=== PATIENT | male | born 1940 | race Caucasian/White ===

== ENCOUNTER 2019-08-22 18:31 | Outpatient (CLI) | payer SELFPAY | END 2019-08-22 18:32 | disposition EMS.NT | LOC: EMS 18:31 | PROVIDERS: ATTEND Surgery | DX: R46.4 Slowness and poor responsiveness (principal); R73.09 Other abnormal glucose ==

== ENCOUNTER 2020-03-18 08:52 | Outpatient (CLI) | payer MEDICARE, OTHER | END 2020-03-18 08:53 | disposition EMS.NT | LOC: EMS 08:52 | PROVIDERS: ATTEND Surgery | DX: R47.81 Slurred speech (principal); R73.09 Other abnormal glucose ==

== ENCOUNTER 2020-03-20 11:04 | Outpatient (CLI) | payer MEDICARE, OTHER | END 2020-03-20 23:59 | disposition EMS.NT | LOC: EMS 11:04 | PROVIDERS: ATTEND Surgery | DX: R73.09 Other abnormal glucose (principal) | CPT/HCPCS: A0425; A0427 ==

== ENCOUNTER 2020-06-29 16:41 | Outpatient (CLI) | payer MEDICARE, OTHER ==
--- NOTE | 2020-06-30 14:42 | Ultrasound Report ---
PROCEDURE: Bladder INDICATIONS: OVERACTIVE BLADDER TECHNIQUE: Real-time scanning was performed of the bladder, with image documentation. COMPARISON: None. FINDINGS: Bladder: Pre-void bladder volume is 121 mL. Post-void residual is 6 mL. Pre-void images demonstrat e no intraluminal masses or stones. On pre-void images, bilateral ureteral jets are noted with color Doppler interrogation. Miscellaneous: The prostate is mildly enlarged, measuring 4.1 x 3.4 x 5.1 cm. No free pelvic fluid. IMPRESSION: 1. Minimal postvoid residual volume of 6 mL. Reviewed by: Ministerio Reyna MD on 06/30/2020 2:41 PM PDT Approved by: Ministerio Reyna MD on 06/30/2020 2:41 PM PDT Station ID: [id number]
== END 2020-06-29 16:42 | disposition home or self-care (01) ==
LOC: DI 16:41
PROVIDERS: ATTEND Internal Medicine
DX: R35.1 Nocturia (principal); N32.81 Overactive bladder
CPT/HCPCS: 76857

== ENCOUNTER 2020-07-20 13:19 | Outpatient (CLI) | payer MEDICARE, OTHER | END 2020-07-20 13:20 | disposition home or self-care (01) | LOC: DI 13:19 | PROVIDERS: ATTEND Internal Medicine | DX: I51.7 Cardiomegaly (principal); I49.3 Ventricular premature depolarization; I87.8 Other specified disorders of veins | CPT/HCPCS: 93306 ==

== ENCOUNTER 2020-09-30 11:21 | Outpatient (CLI) | payer MEDICARE, OTHER ==
--- NOTE | 2020-09-30 15:56 | XRAY Report ---
PROCEDURE: Lumbar Spine 2 View INDICATIONS: ACUTE LBP TECHNIQUE: 2 views of the lumbar spine were acquired. COMPARISON: None. FINDINGS: Bones: 5 [id number] vertebrae are present. There is mildly scoliotic bony alignment, a. No ve rtebral body compression fractures. No suspicious bony lesions. On the lateral view there appears t o be a well-developed S1-S2 disc. Soft tissues: Overlying bowel gas pattern is normal. No suspicious soft tissue calcifications. IMPRESSION: No trauma found, mild age-related degenerative disc disease is noted along the spine. Co mpression fracture seen. As noted the S1-S2 segmentation may include a well-developed disc, which cou ld be further assessed by targeted plain film imaging or CT scanning if clinically warranted. Segment ation anomalies can produce increased risk for developing acute low back pain. Reviewed by: Yuval Hardin MD on 09/30/2020 3:55 PM PST Approved by: Yuval Hardin MD on 09/30/2020 3:55 PM PST Station ID: [id number]
== END 2020-09-30 11:22 | disposition home or self-care (01) ==
LOC: DI 11:21
PROVIDERS: ATTEND Internal Medicine
DX: M51.37 Other intervertebral disc degeneration, lumbosacral region (principal)

== ENCOUNTER 2021-09-02 15:00 | Outpatient (CLI) | payer MEDICARE, OTHER | END 2021-09-02 15:01 | disposition critical access hospital (66) | LOC: EMS 15:00 | DX: R06.02 Shortness of breath (principal) | CPT/HCPCS: A0425; A0427 ==

== ENCOUNTER 2021-09-02 15:17 | Inpatient (IN) | payer MEDICARE, OTHER ==
[2021-09-02] MEDS ORDERED: FUROSEMIDE 40 MG/4 ML VIAL IVP STA (15:23)
[2021-09-02] MEDS ORDERED: NITROGLYCERIN 50 MG/250 ML 50 MG/250 ML BOTTLE IV STA (15:23)
--- NOTE | 2021-09-02 15:26 | ED Physician Documentation ---
PD HPI DYSPNEA - Stated complaint Stated Complaint: SOA - History obtained from History obtained from: Patient, EMS - History of Present Illness Timing - onset: Today Timing - onset during: Rest Timing - duration: Hours (2) Timing - details: Abrupt onset Pain level max: 0 Pain level now: 0 Improved by: O2, Other (CPAP) Worsened by: Laying flat Associated symptoms: Bilateral edema Similar symptoms before: Diagnosis (CHF) - Additional information Additional information: 80-year-old male with a history of congestive heart failure presents with increasing dyspnea today. Started on CPAP with EMS. No fevers. No chills. Has had his Covid vaccinations. Nothing makes it better or worse. He has chronic bilateral lower extremity edema. Last echocardiogram was 1 year ago with a EF of around 25%. Review of Systems Ten Systems: 10 systems reviewed and negative Constitutional: denies: Fever Nose: denies: Rhinorrhea / runny nose, Congestion Respiratory: denies: Cough, Wheezing GI: denies: Nausea, Vomiting, Diarrhea Skin: denies: Rash Musculoskeletal: denies: Neck pain, Back pain Neurologic: denies: Headache PD PAST MEDICAL HISTORY - Past Medical History Cardiovascular: Hypertension, High cholesterol, Coronary artery disease, Valve disorder Respiratory: None Neuro: Parkinson's Endocrine/Autoimmune: Type 2 diabetes GI: GERD : Incontinence HEENT: Chronic vision loss Psych: None Musculoskeletal: None Derm: None - Past Surgical History Past Surgical History: Yes Cardiovascular: Valve replacement, AICD HEENT: Cataracts - Present Medications Home Medications: Ambulatory Orders Medication Instructions Recorded Confirmed Aspirin [Aspirin EC] 81 mg PO DAILY 03/20/20 03/20/20 Carvedilol 3.125 mg PO BID 03/20/20 03/20/20 Doxazosin Mesylate 8 mg PO DAILY 03/20/20 03/20/20 Ibuprofen 400 mg PO DAILY 03/20/20 03/20/20 Insulin NPH Human [NovoLIN N] 50 - 80 unit SQ TIDWM 03/20/20 03/20/20 Omeprazole 20 mg PO DAILY 03/20/20 03/20/20 Oxybutynin [Ditropan] 5 mg PO BID 03/20/20 03/20/20 Spironolactone 25 mg PO DAILY 03/20/20 09/02/21 Apixaban [Eliquis] 5 mg PO BID 09/02/21 09/02/21 Carbidopa/Levodopa 25/100 [Sinemet 2 each PO TID 09/02/21 25 mg/100 mg] Losartan Potassium 12.5 mg PO DAILY 09/02/21 09/02/21 Metoprolol Succinate 100 mg PO BID 09/02/21 09/02/21 Rosuvastatin Calcium [Crestor] 5 mg PO DAILY 09/02/21 - Allergies Allergies/Adverse Reactions: Allergies Allergy/AdvReac Type Severity Reaction Status Date / Time atorvastatin [From Lipitor] Allergy Unknown Verified 09/02/21 15:29 - Social History Does the pt smoke?: No Smoking Status: Former smoker Does the pt drink ETOH?: Yes Does the pt have substance abuse?: No - Immunizations Immunizations are current?: No Immunizations: TDAP >10years/unknown - POLST Patient has POLST: No PD ED PE NORMAL - Vitals Vital signs reviewed: Yes - General General: Alert and oriented X 3, Other (mod resp distress, on CPAP) - HEENT HEENT: Moist mucous membranes - Neck Neck: Supple, no meningeal sign - Cardiac Cardiac: Other (irregular) - Respiratory Respiratory: Other (crackles B) - Abdomen Abdomen: Soft, Non tender, Non distended - Derm Derm: Warm and dry - Extremities Extremities: Other (2+ BLE pitting edema) - Neuro Neuro: Alert and oriented X 3 Results - Vitals Vitals: Vital Signs - 24 hr 09/02/21 09/02/21 09/02/21 15:24 15:27 15:30 Temperature 36.6 C Heart Rate 125 H 110 H 113 H Respiratory 31 H 24 Rate Blood Pressure 146/90 H 146/90 H O2 Saturation 100 96 09/02/21 09/02/21 09/02/21 15:59 16:29 16:30 Temperature 37.5 C Heart Rate 126 H 120 H Respiratory 29 H 28 H Rate Blood Pressure 139/105 H 146/95 H 146/95 H O2 Saturation 100 100 09/02/21 09/02/21 09/02/21 17:11 17:17 17:30 Temperature Heart Rate 118 H 108 H 110 H Respiratory 30 H 29 H Rate Blood Pressure 132/86 H 132/88 H O2 Saturation 100 100 Oxygen O2 Source Room air - EKG (time done) 1531 Rate: Rate (enter#) (120) Rhythm: Atrial fibrillation (w/ RVR) [place]: Normal Intervals: Wide QRS Ischemia: ST elevation c/w repol - Labs Labs: Laboratory Tests 09/02/21 09/02/21 09/02/21 15:21 15:21 15:21 WBC 7.4 RBC 4.52 L Hgb 13.2 L Hct 42.1 MCV 93.1 MCH 29.2 MCHC 31.4 L RDW 12.7 Plt Count 189 MPV 11.9 H Neut # (Auto) 5.8 Lymph # (Auto) 0.8 L [place] # (Auto) 0.7 Eos # (Auto) 0.0 Baso # (Auto) 0.0 Absolute Nucleated RBC 0.00 Nucleated RBC % 0.0 Sodium 130 L Potassium 6.3 H* Chloride 97 L Carbon Dioxide 23 Anion Gap 10.0 BUN 33 H Creatinine 1.4 H Estimated GFR (MDRD) 49 L Glucose 380 H Calcium 8.4 L Total Bilirubin 0.5 AST 23 ALT 14 Alkaline Phosphatase 93 Troponin I High Sens B-Natriuretic Peptide 932 H Total Protein 6.5 L Albumin 2.9 L Globulin 3.6 Albumin/Globulin Ratio 0.8 L Lipase 21 L Nasal Adenovirus (PCR) Nasal B. parapertussis DNA (PCR) Nasal Coronavir 229E PCR Nasal Coronavir HKU1 PCR Nasal Coronavir NL63 PCR Nasal Coronavir OC43 PCR Nasal Enterovir/Rhinovir PCR Nasal Influenza B PCR Nasal Influenza A PCR Nasal Parainfluen 1 PCR Nasal Parainfluen 2 PCR Nasal Parainfluen 3 PCR Nasal Parainfluen 4 PCR Nasal RSV (PCR) Nasal B.pertussis DNA PCR Nasal C.pneumoniae (PCR) [place] Human Metapneumo PCR Nasal M.pneumoniae (PCR) Nasal SARS-CoV-2 (PCR) 09/02/21 09/02/21 15:21 15:23 WBC RBC Hgb Hct MCV MCH MCHC RDW Plt Count MPV Neut # (Auto) Lymph # (Auto) [place] # (Auto) Eos # (Auto) Baso # (Auto) Absolute Nucleated RBC Nucleated RBC % Sodium Potassium Chloride Carbon Dioxide Anion Gap BUN Creatinine Estimated GFR (MDRD) Glucose Calcium Total Bilirubin AST ALT Alkaline Phosphatase Troponin I High Sens 42.3 H* B-Natriuretic Peptide Total Protein Albumin Globulin Albumin/Globulin Ratio Lipase Nasal Adenovirus (PCR) NOT DETECTED Nasal B. parapertussis DNA (PCR) NOT DETECTED Nasal Coronavir 229E PCR NOT DETECTED Nasal Coronavir HKU1 PCR NOT DETECTED Nasal Coronavir NL63 PCR NOT DETECTED Nasal Coronavir OC43 PCR NOT DETECTED Nasal Enterovir/Rhinovir PCR NOT DETECTED Nasal Influenza B PCR NOT DETECTED Nasal Influenza A PCR NOT DETECTED Nasal Parainfluen 1 PCR NOT DETECTED Nasal Parainfluen 2 PCR NOT DETECTED Nasal Parainfluen 3 PCR NOT DETECTED Nasal Parainfluen 4 PCR NOT DETECTED Nasal RSV (PCR) DETECTED A Nasal B.pertussis DNA PCR NOT DETECTED Nasal C.pneumoniae (PCR) NOT DETECTED [place] Human Metapneumo PCR NOT DETECTED Nasal M.pneumoniae (PCR) NOT DETECTED Nasal SARS-CoV-2 (PCR) NOT DETECTED - Rads (name of study) cxr Radiology: Final report received, EMP read contemporaneously, See rad report (Increased vascularity with cardiomegaly most suggestive of edema. ) PD MEDICAL DECISION MAKING - ED course Complexity details: reviewed results, re-evaluated patient, considered differential, d/w patient, d/w family, d/w career consultant ED course: 80-year-old male with pulmonary edema. Likely secondary to CHF. He was maintained on BiPAP in the emergency department. Started on nitroglycerin drip and started on a diltiazem drip for the A. fib with RVR. Breathing did improve, but is still requiring BiPAP. He was not able to be weaned in the emergency department. He was also given Lasix and a Rizo catheter inserted. The patient will be admitted to the hospitalist for further care. Discussed the case with Dr. Corey, hospitalist who accepts This document was made in part using voice recognition software. While efforts are made to proofread this document, sound alike and grammatical errors may occur. Discussed the case with the patient's [id number]. She states that he is DNR/DNI - Critical Care Time(min): 40 Time Includes: Direct patient care, Review records, Reassess patient, Document care, Coordinate care, Medical consult, Family consult for tx dec, See progress note Data interpretation: See progress note Departure - Departure Disposition: 66 [facility] DC/Xfer Clinical Impression: Hyperkalemia, Atrial fibrillation with rapid ventricular response, Hyperglycemia due to diabetes mellitus Pulmonary edema Qualifiers: Chronicity: acute Qualified Code(s): J81.0 - Acute pulmonary edema CHF exacerbation Qualifiers: Heart failure type: unspecified Qualified Code(s): I50.9 - Heart failure, unspecified Condition: Stable Discharge Date/Time: 09/02/21 18:28
[2021-09-02 15:34] LABS: BASOPHILS % (AUTO) 0.5 %; EOSINOPHILS % (AUTO) 0.3 %; HCT - HEMATOCRIT 42.1 % (42.0-52.0); HGB - HEMOGLOBIN 13.2 g/dL (14.0-18.0); LYMPHOCYTES # (AUTO) 0.8 10^3/uL (1.5-3.5); LYMPHOCYTES % (AUTO) 10.6 %; MEAN CORPUSCULAR HEMOGLOBIN 29.2 pg (27.0-31.0); MEAN CORPUSCULAR HGB CONC 31.4 g/dL (32.0-36.0); MEAN CORPUSCULAR VOLUME 93.1 fL (80.0-94.0); MEAN PLATELET VOLUME 11.9 fL (7.4-11.4); MONOCYTES # (AUTO) 0.7 10^3/uL (0.0-1.0); MONOCYTES % (AUTO) 8.8 %; NEUTROPHILS # (AUTO) 5.8 10^3/uL (1.5-6.6); NEUTROPHILS % (AUTO) 79.3 %; PLT - PLATELET COUNT 189 10^3/uL (130-450); RED BLOOD COUNT 4.52 10^6/uL (4.70-6.10); RED CELL DISTRIBUTION WIDTH 12.7 % (12.0-15.0); WHITE BLOOD COUNT 7.4 x10^3/uL (4.8-10.8)
[2021-09-02 15:57] LABS: ALBUMIN 2.9 g/dL (3.2-5.5); ALBUMIN/GLOBULIN RATIO 0.8 (1.0-2.2); BILIRUBIN,TOTAL 0.5 mg/dL (0.2-1.0); CALCIUM 8.4 mg/dL (8.5-10.3); CREATININE 1.4 mg/dL (0.6-1.2); TOTAL PROTEIN 6.5 g/dL (6.7-8.2)
[2021-09-02 15:58] LABS: POTASSIUM 6.3 mmol/L (3.5-5.0)
--- NOTE | 2021-09-02 16:09 | XRAY Report ---
PROCEDURE: Chest 1 View X-Ray INDICATIONS: dyspnea, CHF TECHNIQUE: One view of the chest was acquired. COMPARISON: None FINDINGS: Surgical changes and devices: Pacemaker and sternal wires are present. Lungs and pleura: No consolidations. Increased pulmonary vascularity is present. Mediastinum: Mediastinal contours appear normal. Heart size is. Bones and chest wall: No suspicious bony lesions. Overlying soft tissues appear unremarkable. IMPRESSION: Increased vascularity with cardiomegaly most suggestive of edema. Reviewed by: Vero Gonzalez MD on 09/02/2021 4:08 PM PST Approved by: Vero Gonzalez MD on 09/02/2021 4:08 PM PST Station ID: [id number]
[2021-09-02] MEDS ORDERED: INSULIN REGULAR HUMAN 100 UNIT/1 ML 10 ML MDV IVP STA (16:44)
[2021-09-02 16:57] LABS: B. PARAPERTUSSIS- RESP PCR PAN NOT DETECTED; B. PERTUSSIS- RESP PCR PANEL NOT DETECTED; C. PNEUMONIAE- RESP PCR PANEL NOT DETECTED; CORONAVIRUS 229E-RESP PCR NOT DETECTED; CORONAVIRUS HKU1-RESP PCR NOT DETECTED; CORONAVIRUS NL63-RESP PCR NOT DETECTED; CORONAVIRUS OC43-RESP PCR NOT DETECTED; HUMAN METAPNEUMOVIRUS NOT DETECTED; INFLUENZA A- RESP PCR PANEL NOT DETECTED; INFLUENZA B - RESP PCR PANEL NOT DETECTED; M. PNEUMONIAE- RESP PCR PANEL NOT DETECTED; PARAINFLUENZA VIRUS 1 NOT DETECTED; PARAINFLUENZA VIRUS 2 NOT DETECTED; PARAINFLUENZA VIRUS 3 NOT DETECTED; PARAINFLUENZA VIRUS 4 NOT DETECTED; RHINOVIRUS/ENTEROVIRUS NOT DETECTED; RSV- RESP PCR PANEL DETECTED; SARS-CoV-2 -RESP PCR PANEL NOT DETECTED
[2021-09-02] MEDS: diltiaZEM INJ 125 MG in DEXTROSE 5% 100 ML IVP ONE ×2 (17:27→18:54)
[2021-09-02] MEDS ORDERED: ONDANSETRON 4 MG/2 ML VIAL IVP PRN (17:38)
[2021-09-02] MEDS ORDERED: ACETAMINOPHEN 325 MG TABLET PO PRN ×2 (17:38→19:38)
--- NOTE | 2021-09-02 17:54 | HISTORY & PHYSICAL EXAMINATION ---
Chief Complaint - Chief Complaint Chief Complaint: dyspnea History of Present Illness - Admitted From Admitted From:: [facility] ED - History Obtained From Records Reviewed: yes History obtained from: patient's daughter in law Exam Limitations: dyspnea, exhausted - History of Present Illness HPI Comment/Other: Patient is an 80-year-old male with medical history significant for coronary artery disease status post CABG, A. fib on Eliquis, CHF, hypertension, hyperlipidemia, lymphedema, diabetes on insulin, BPH and Parkinson's who was brought to the ED via EMS with dyspnea. It is reported that the patient has been fighting a cold since 08/31/2021. He slept most of the day yesterday. Today he woke up significantly dyspneic and had a rattling sound in his chest. His dyspnea was severe such that he declined food. His family became concerned and called EMS. Upon arrival EMS immediately placed him on a CPAP machine. Work-up in the emergency room included BNP which was 930, troponin 42. Patient was also noted to have a potassium level of 6.3. He also tested positive for RSV. Finally he was in atrial fibrillation with rapid ventricular rhythm. Heart rate was in the 120s. Patient was placed on the BiPAP in the ED, given Lasix, insulin, dextrose 50 and also placed on a diltiazem drip. He was presented for admission for further treatment. At bedside patient is significantly dyspneic with crackles on auscultation and very exhausted. He was unable to provide history. This history above was o btained from his [id number]. History - Past Medical History Cardiovascular: reports: Congestive heart failure, Hypertension, High cholesterol, Coronary artery disease, Valve disorder, Other (Chronic Lymphedema) Respiratory: reports: None Neuro: reports: Parkinson's Endocrine/Autoimmune: reports: Type 2 diabetes GI: reports: GERD : reports: Incontinence HEENT: reports: Chronic vision loss Psych: reports: None Musculoskeletal: reports: None Derm: reports: None MRSA Hx?: No - Past Surgical History Cardiovascular: reports: CABG, Valve replacement, AICD HEENT: reports: Cataracts - Family & Social History Family History Comment/Other: Family member denied any history of any significant medical problems Social History Notes: He does not use tobacco products, alcohol or recreational substances. He lives at home with his son and his son's family. He has a nursing assistant who comes 3 days a week to help with showers. He gets around using a walker. He is able to feed himself. - POLST Patient has POLST: No POLST Status: DNR Meds/Allgy - Home Medications Home Medications: Ambulatory Orders Medication Instructions Recorded Confirmed Aspirin [Aspirin EC] 81 mg PO DAILY 03/20/20 03/20/20 Carvedilol 3.125 mg PO BID 03/20/20 03/20/20 Doxazosin Mesylate 8 mg PO DAILY 03/20/20 03/20/20 Ibuprofen 400 mg PO DAILY 03/20/20 03/20/20 Insulin NPH Human [NovoLIN N] 50 - 80 unit SQ TIDWM 03/20/20 03/20/20 Omeprazole 20 mg PO DAILY 03/20/20 03/20/20 Oxybutynin [Ditropan] 5 mg PO BID 03/20/20 03/20/20 Spironolactone 25 mg PO DAILY 03/20/20 09/02/21 Apixaban [Eliquis] 5 mg PO BID 09/02/21 09/02/21 Carbidopa/Levodopa 25/100 [Sinemet 2 each PO TID 09/02/21 25 mg/100 mg] Losartan Potassium 12.5 mg PO DAILY 09/02/21 09/02/21 Metoprolol Succinate 100 mg PO BID 09/02/21 09/02/21 Rosuvastatin Calcium [Crestor] 5 mg PO DAILY 09/02/21 - Allergies Allergies/Adverse Reactions: Allergies Allergy/AdvReac Type Severity Reaction Status Date / Time atorvastatin [From Lipitor] Allergy Unknown Verified 09/02/21 15:29 Review of Systems - Constitutional Constitutional: reports: Fatigue. denies: Fever, Chills - Eyes Eyes: reports: Blurred vision (2/2 cataract) - Cardiovascular Cariovascular: reports: Irregular heart rate, Edema, Exertional dyspnea, Decr. exercise tolerance. denies: Palpitations, Chest pain, Lightheadedness - Respiratory Respiratory: reports: Cough, Sputum production, Wheezing, SOB at rest, SOB with exertion - Genitourinary Genitourinary: denies: Dysuria, Frequency, Urgency, Hematuria - Musculoskeletal Musculoskeletal: denies: Muscle pain, Back pain, Muscle aches - Integumentary Integumentary: reports: Other (redness in lower extremities. Wounds noted on bilateral lower extremities) - Neurological Neurological: reports: General weakness - Psychiatric Psychiatric: denies: Depression, Anxiety - Endocrine Endocrine: denies: Polyuria, Polydypsia - Hematologic/Lymphatic Hematologic/Lymphatic: denies: Anemia, Bruising, Petechiae Prior Level of Functionality: He lives at home with his son and his son's family. He has a nurse aide who comes 3 days a week to help with showers. He gets around using a walker. He is able to feed himself. Exam - Vital Signs Vital Signs: Vital Signs x48h Temp Pulse Resp BP Pulse Ox 09/02/21 17:30 110 H 29 H 132/88 H 100 09/02/21 17:17 108 H 09/02/21 17:11 118 H 30 H 132/86 H 100 09/02/21 16:30 146/95 H 09/02/21 16:29 37.5 C 120 H 28 H 146/95 H 100 09/02/21 15:59 126 H 29 H 139/105 H 100 09/02/21 15:30 113 H 24 146/90 H 96 09/02/21 15:27 110 H 09/02/21 15:24 36.6 C 125 H 31 H 146/90 H 100 - Physical Exam General Appearance: positive: Moderate distress (respiratory distress) Eyes Bilateral: positive: PERRL, EOMI ENT: positive: No signs of dehydration Neck: positive: No JVD, Trachea midline Respiratory: positive: Chest non-tender, Rales, Rhonchi, Other (Increased work of breathing) Cardiovascular: positive: Irregularly irregular, Tachycardia Abdomen: positive: Non-tender, No organomegaly, Nml bowel sounds, No distention. negative: Guarding, Rebound Back: positive: Nml inspection Skin: positive: Other (Redness and wounds on lower extremities bilaterally) Neurologic/Psychiatric: positive: Other (oriented to person) Conclusion/Plan - Problem List (1) Atrial fibrillation with rapid ventricular response Conclusion/Plan: On diltiazem drip. Will titrate to effect. We will continue Eliquis 5 mg p.o. twice daily. (2) CHF exacerbation Conclusion/Plan: Patient placed on BiPAP machine. Patient given Lasix 40 mg IV x1 in the ED. Will administer another dose of Lasix 40 mg IV x1 tonight. We will continue with Lasix 40 mg IV twice daily starting tomorrow morning. Patient is currently on a nitroglycerin drip. We will continue. Continue metoprolol succinate 100 mg twice daily. Hold patient's spironolactone. We will hold patient's losartan. We will obtain a 2D echocardiogram when available. Troponin was 42. Will trend x2 more. It is reported that patient EF on last echocardiogram was 20 to 30%. Patient has an AICD device. Qualifiers: Heart failure type: unspecified Qualified Code(s): I50.9 - Heart failure, unspecified (3) Hyperkalemia Conclusion/Plan: Initial potassium level was 6.3. Patient was given a dose of dextrose 50 and 6 units of regular insulin IV. Will recheck potassium level. Continue Lasix 40 mg IV twice daily. Hold spironolactone and losartan. (4) CAD (coronary artery disease) Conclusion/Plan: Status post CABG in the past. Patient's ejection fraction is 20 to 30% per his last echocardiogram. Patient has an AICD device in place. Patient currently does not have chest pain. Initial troponin was 42. Patient is on a nitroglycerin drip for flash pulmonary edema. Metoprolol succinate 100 mg p.o. twice daily. Eliquis 5 mg p.o. twice daily. We will hold patient's losartan and spironolactone. Patient takes rosuvastatin 5 mg p.o. daily. (5) Diabetes mellitus Conclusion/Plan: Blood glucose level was 380. We will check patient's hemoglobin A1c. Lantus 20 units subcu twice daily ordered High dose sliding scale insulin ordered. Accu Checks before every meal and at bedtime. Carb controlled diet ordered. (6) Parkinson disease Conclusion/Plan: On carbidopa/levodopa (7) BPH (benign prostatic hyperplasia) Conclusion/Plan: On doxazosin 8 mg p.o. daily. (8) URI (upper respiratory infection) Conclusion/Plan: 2/2 RSV Supportive therapy (9) JOLLY (acute kidney injury) Conclusion/Plan: Creatinine was 1.4 with eGFR of 49 Will monitor. - Lab Results Fish Bones: 09/03/21 04:32 09/03/21 04:32 Core Measures - Anticipated LOS I expect patient to be DC'd or transferred within 96 hours.: Yes - DVT/VTE - Prophylaxis VTE/DVT Device ordered at admit?: Yes VTE/DVT Prophylaxis med ordered at admit?: Yes
[2021-09-02] MEDS ORDERED: NITROGLYCERIN 50 MG/250 ML 50 MG/250 ML BOTTLE IV SCH ×2 (19:00→20:12)
[2021-09-02] MEDS ORDERED: FUROSEMIDE 40 MG/4 ML VIAL IVP ONE (19:00)
[2021-09-02] MEDS: diltiaZEM INJ 125 MG in DEXTROSE 5% 100 ML IV SCH (19:07)
[2021-09-02 20:00] LABS: CALCIUM 8.9 mg/dL (8.5-10.3); CREATININE 1.5 mg/dL (0.6-1.2); POTASSIUM 5.8 mmol/L (3.5-5.0)
--- NOTE | 2021-09-02 20:31 | ADVANCE CARE PLANNING NOTE ---
Advance Care Planning - Planning Encounter Date: 09/02/21 Time: 20:00 Purpose: To clarify the CODE STATUS wishes because the son Glenn Conde requested DNR status after speaking with the admitting Hospitalist, Dr Corey. However, the patient has a defibrillator which is working, not turned off, and would continue to give the patient resuscitation by defibrillation methods. Parties in Attendance: This Hospitalist spoke to the son, Glenn Almanza Jr. (the patient's DPOA) by phone, outside of the patient's room. Decisional Capacity of the Patient: The patient is currently in extremist, in the ICU and he is too dyspneic to speak or make any medical decisions. The entire history had been obtained by Dr. Corey from the [id number], not from the patient. - Encounter Subjective/Patient's Story: The son, Glenn Almanza Jr. described that the patient required CABG in 2012. He had a pacemaker placed then. The Hose Tester informed the patient and the family that the pacemaker would need to be upgraded to a defibrillator in the upcoming future. The patient did have an upgrade to a defibrillator in 2013 and then needed something else done in 2019 (possibly a battery change). The son was in possession of the patient's defibrillator card from the patient's wallet and was able to read that the patiemt has a [place] pacemaker, [id number] and it has an RV lead, an LV lead and LA lead. His Hose Tester in [place] gets information from downloaded remote monitoring, with wifi equipment which the patient has at his bedside at home. The son is not sure if the remote monitoring information goes to the original Hose Tester who placed the device, who is in [facility], or whether the [place] Hose Tester gets all of the remote monitoring information. The patient has never had "optimization" done with an Echo and changing settings of his biventricular leads, that he knows of, and the patient has never had a shock administered by this defibrillator. Objective/Medical Story: Patient is admitted with flash pulmonary edema. He is in the ICU, on supplemental O2, receiving IV Lasix twice daily, is on an IV nitroglycerin drip for afterload and preload reduction. The admitting Hospitalist had spoken to the son earlier toda and reported that a DNR status has been ordered. I called the son, Glenn AlmanzaJr. and receive the above information about the [place] device, (which is a top of the line, Bi-Ventricular pacer/defibrillator). I explained that a DNR status means that there would be no defibrillation delivered, but that the patient currently has a working defibrillator which would give him shocks, which is rescusitation. The son reported that the father has said the following: "I want the defibrillator to work like it's supposed to and let me live, however if it is not successful, then let nature take its course". The son stated to me and to the admitting doctor, that he would not want the patient's ribs cracked in performance of CPR. I stated that if we let the defibrillator keep shocking the patient, in a CODE BLUE situation, the patient could theoretically keep getting (uncomfortable) shocks recurrently, and that is also painful and is not a true DNR status. Goals of Care: The son wants to respect the patient's wishes in terms of letting the defibrillator give shocks if they are indicated but he does not want the patient's ribs cracked in performance of CPR. He wants to respect the patient's wishes in terms of letting the defibrillator do its job however "if it is not successful, to stop and let nature take its course". He will speak to his 2 brothers and explain all these details before making any further decision. Glenn Jr Cami wishes to still keep the DNR status in place. Plan: The son will call back the Hospitalist team with a decision about CODE BLUE status for his father. Code Status: Do Not Attempt Resuscitation Time spent on advance care plannin min
[2021-09-02] MEDS: APIXABAN 5 MG TABLET PO SCH (20:52)
[2021-09-02] MEDS: INSULIN GLARGINE 300 UNIT/3 ML PEN SUBQ SCH (20:53)
[2021-09-02] MEDS: METOPROLOL SUCCINATE 50 MG TABLET PO SCH (20:53)
[2021-09-02] MEDS: INSULIN ASPART 300 UNIT/3 ML PEN SUBQ SCH (20:54)
[2021-09-03] MEDS: SODIUM CHLORIDE FLUSH 0.9% 10 ML SYRINGE IVP SCH ×4 (01:17→20:02)
[2021-09-03 05:02] LABS: BASOPHILS % (AUTO) 0.3 %; EOSINOPHILS # (AUTO) 0.1 10^3/uL (0.0-0.7); EOSINOPHILS % (AUTO) 1.5 %; HCT - HEMATOCRIT 43.9 % (42.0-52.0); HGB - HEMOGLOBIN 13.5 g/dL (14.0-18.0); LYMPHOCYTES # (AUTO) 1.3 10^3/uL (1.5-3.5); LYMPHOCYTES % (AUTO) 19.7 %; MEAN CORPUSCULAR HEMOGLOBIN 29.1 pg (27.0-31.0); MEAN CORPUSCULAR HGB CONC 30.8 g/dL (32.0-36.0); MEAN CORPUSCULAR VOLUME 94.6 fL (80.0-94.0); MEAN PLATELET VOLUME 11.7 fL (7.4-11.4); MONOCYTES # (AUTO) 0.8 10^3/uL (0.0-1.0); MONOCYTES % (AUTO) 11.5 %; NEUTROPHILS # (AUTO) 4.5 10^3/uL (1.5-6.6); NEUTROPHILS % (AUTO) 66.6 %; PLT - PLATELET COUNT 157 10^3/uL (130-450); RED BLOOD COUNT 4.64 10^6/uL (4.70-6.10); RED CELL DISTRIBUTION WIDTH 12.7 % (12.0-15.0); WHITE BLOOD COUNT 6.8 x10^3/uL (4.8-10.8)
[2021-09-03 05:12] LABS: CREATININE 1.6 mg/dL (0.6-1.2)
[2021-09-03 05:19] LABS: CALCIUM 8.6 mg/dL (8.5-10.3); POTASSIUM 5.1 mmol/L (3.5-5.0)
[2021-09-03 05:37] LABS: MAGNESIUM 2.1 mg/dL (1.7-2.8); PHOSPHORUS 3.8 mg/dL (2.5-4.6)
[2021-09-03] MEDS: PANTOPRAZOLE 40 MG VIAL IVP SCH (06:04)
[2021-09-03] MEDS: SODIUM CHLORIDE FLUSH 0.9% 10 ML SYRINGE IVP PRN ×2 (06:04→06:05)
[2021-09-03] MEDS: FUROSEMIDE 40 MG/4 ML VIAL IVP SCH ×2 (06:04→14:00)
[2021-09-03] MEDS: METOPROLOL SUCCINATE 50 MG TABLET PO SCH ×2 (08:00→20:01)
[2021-09-03] MEDS: INSULIN ASPART 300 UNIT/3 ML PEN SUBQ SCH ×4 (08:30→20:06)
[2021-09-03] MEDS: APIXABAN 5 MG TABLET PO SCH ×2 (08:30→19:59)
[2021-09-03] MEDS: SPIRONOLACTONE 25 MG TABLET PO SCH (08:30)
[2021-09-03] MEDS: INSULIN GLARGINE 300 UNIT/3 ML PEN SUBQ SCH ×2 (08:30→20:06)
[2021-09-03] MEDS: ASPIRIN EC 81 MG TABLET PO SCH (08:30)
--- NOTE | 2021-09-03 08:31 | PROVIDER PROGRESS NOTE ---
Assessment/Plan - Problem List (1) Atrial fibrillation with rapid ventricular response Assessment/Plan: Heart rate currently less than 100. Will wean patient off diltiazem drip. 100 mg p.o. twice daily On Eliquis 5 mg p.o. twice daily. (2) CHF exacerbation Qualifiers: Heart failure type: unspecified Qualified Code(s): I50.9 - Heart failure, unspecified Assessment/Plan: Improved. Patient is currently off BiPAP machine. He is on 2 L of oxygen via nasal cannula with oxygen saturation at 99%. On Lasix 40 mg IV twice daily. Nitroglycerin drip discontinued. Metoprolol succinate 100 mg p.o. twice daily. Spironolactone 25mg p.o. daily. Will obtain a 2D echocardiogram when available. Troponin trend was 42, then 64.8, then 46.1. Initial BNP was 932. Repeat BNP was 749. (3) Hyperkalemia Assessment/Plan: Improved. Potassium currently at 5.2. We'll continue to monitor. Patient is on Lasix and insulin. (4) CAD (coronary artery disease) Assessment/Plan: Status post CABG in the past. Patient's ejection fraction is 20 to 30% per his last echocardiogram. Patient has an AICD device in place. Patient currently does not have chest pain. Initial troponin was 42. Repeat troponin was 64 and then 46.1 Patient is on a nitroglycerin drip for flash pulmonary edema. Metoprolol succinate 100 mg p.o. twice daily. Eliquis 5 mg p.o. twice daily. We will hold patient's losartan and spironolactone. Patient takes rosuvastatin 5 mg p.o. daily. (5) Diabetes mellitus Assessment/Plan: Very poorly controlled. Hemoglobin A1c was 11.5. Lantus 20 units subcu twice daily ordered High dose sliding scale insulin ordered. Accu Checks before every meal and at bedtime. Carb controlled diet ordered. (6) Parkinson disease Assessment/Plan: On carbidopa/levodopa (7) BPH (benign prostatic hyperplasia) Assessment/Plan: On doxazosin 8 mg p.o. daily. (8) URI (upper respiratory infection) Assessment/Plan: 2/2 RSV Supportive therapy (9) JOLLY (acute kidney injury) Assessment/Plan: Creatinine was 1.6 with eGFR of 42 Will monitor. - Current Meds Current Meds: Current Medications Generic Name Dose Route Start Last Admin Trade Name Freq PRN Reason Stop Dose Admin Apixaban 5 mg 09/02/21 21:00 09/02/21 20:52 Apixaban 5 Mg Tablet PO 5 mg BID BAYRON Administration Furosemide 40 mg 09/03/21 06:00 09/03/21 06:04 Furosemide 40 Mg/4 Ml Vial IVP 40 mg BIDDIURETIC BAYRON Administration Diltiazem HCl 125 mg/ Dextrose 125 mls @ 5 mls/hr 09/02/21 19:00 09/03/21 06:00 IV 5 mg/hr .Q25H BAYRON 5 mls/hr Titration Protocol 5 MG/HR Insulin Aspart 3 - 11 unit 09/02/21 21:00 09/02/21 20:54 Insulin Aspart 300 Unit/3 Ml Pen SUBQ 9 unit 0800,1200,1700,2100 BAYRON Administration Protocol Insulin Glargine 20 unit 09/02/21 21:00 09/02/21 20:53 Insulin Glargine 300 Unit/3 Ml Pen SUBQ 20 unit BID BAYRON Administration Metoprolol Succinate 100 mg 09/02/21 21:00 09/03/21 08:00 Metoprolol Succinate 50 Mg Tablet PO 100 mg BID BAYRON Administration Pantoprazole Sodium 40 mg 09/03/21 07:00 09/03/21 06:04 Pantoprazole 40 Mg Vial IVP 40 mg QDAC BAYRON Administration Sodium Chloride 10 ml 09/03/21 01:00 09/03/21 01:17 Sodium Chloride Flush 0.9% 10 Ml Syringe IVP Not Given 0100,0900,1700 BAYRON Sodium Chloride 10 ml 09/02/21 17:38 09/03/21 06:05 Sodium Chloride Flush 0.9% 10 Ml Syringe IVP 10 ml PRN PRN Administration NEEDED PER PROVIDER ORDERS - Lab Result Fish Bone Diagrams: 09/03/21 04:32 09/03/21 04:32 - Additional Planning My Orders: My Active Orders 09/02/21 17:38 Activity Orders [RC] Q2HR Daily Weight [RC] 0600 IO [RC] Q1HR Initiate Bowel Care Protocol [RC] QSHIFT Initiate Flu Vaccine Screening [RC] ONCE Initiate ICU Electrolyte Prot. [RC] .protocol Initiate Line Care Protocol [RC] .protocol Initiate Personal Care Protoco [RC] .protocol Initiate Pneumonia Vaccine Scr [RC] ONCE Ondansetron Inj [Zofran Inj] 4 mg IVP Q6HR PRN Sodium Chloride Flush 0.9% [Normal Saline Flush 0.9%] 10 ml IVP PRN PRN Code Status [OTHERS] Routine Condition of Patient [OTHERS] Routine DVT Prophylaxis [OTHERS] Routine 09/02/21 17:41 Oxygen Therapy [RC] .PRN 09/02/21 18:13 Blood Glucose Checks - Eating [RC] 0800,1200,1700,2100 Initiate Hypoglycemia Protocol [RC] .protocol 09/02/21 19:00 Dextrose 5% [D5w] 100 ml diltiaZEM INJ [Cardizem Inj] 125 mg IV 5 mg/hr 09/02/21 21:00 Apixaban [Eliquis] 5 mg PO BID Insulin Aspart [NovoLOG] 3 - 11 unit SUBQ 0800,1200,1700,2100 Insulin Glargine [Lantus Solostar] 20 unit SUBQ BID Metoprolol Succinate [Toprol Xl] 100 mg PO BID 09/03/21 01:00 Sodium Chloride Flush 0.9% [Normal Saline Flush 0.9%] 10 ml IVP 0100,0900,1700 09/03/21 04:32 HEMOGLOBIN A1c% [CHEM] DAILYLAB 09/03/21 06:00 FUROSEMIDE INJ 40mg VIAL [LASIX INJ 40 mg VIAL] 40 mg IVP BIDDIURETIC 09/03/21 07:00 Pantoprazole [Protonix] 40 mg IVP QDAC 09/04/21 05:00 BMP - BASIC METABOLIC PANEL [CHEM] DAILYLAB CBC - COMP BLD CT W/AUTO DIFF [HEME] DAILYLAB 09/05/21 05:00 BMP - BASIC METABOLIC PANEL [CHEM] DAILYLAB CBC - COMP BLD CT W/AUTO DIFF [HEME] DAILYLAB 09/06/21 05:00 BMP - BASIC METABOLIC PANEL [CHEM] DAILYLAB CBC - COMP BLD CT W/AUTO DIFF [HEME] DAILYLAB 09/07/21 05:00 BMP - BASIC METABOLIC PANEL [CHEM] DAILYLAB CBC - COMP BLD CT W/AUTO DIFF [HEME] DAILYLAB 09/08/21 05:00 BMP - BASIC METABOLIC PANEL [CHEM] DAILYLAB CBC - COMP BLD CT W/AUTO DIFF [HEME] DAILYLAB 09/09/21 05:00 BMP - BASIC METABOLIC PANEL [CHEM] DAILYLAB CBC - COMP BLD CT W/AUTO DIFF [HEME] DAILYLAB Subjective - Subjective Patient Reports: Other (Patient was very awake alert and oriented x4 today. Breathing with no difficulty. He was on 2 L of oxygen via nasal cannula with oxygen saturation in the high 90s. Denied chest pain.) Objective Vital Signs: Vital Signs - 24 hr 09/02/21 09/02/21 09/02/21 15:24 15:27 15:30 Temperature 36.6 C Heart Rate 125 H 110 H 113 H Heart Rate [ Monitoring electrodes] Respiratory 31 H 24 Rate Blood Pressure 146/90 H 146/90 H Blood Pressure [Right Brachial artery] O2 Saturation 100 96 09/02/21 09/02/21 09/02/21 15:59 16:29 16:30 Temperature 37.5 C Heart Rate 126 H 120 H Heart Rate [ Monitoring electrodes] Respiratory 29 H 28 H Rate Blood Pressure 139/105 H 146/95 H 146/95 H Blood Pressure [Right Brachial artery] O2 Saturation 100 100 09/02/21 09/02/21 09/02/21 17:11 17:17 17:30 Temperature Heart Rate 118 H 108 H 110 H Heart Rate [ Monitoring electrodes] Respiratory 30 H 29 H Rate Blood Pressure 132/86 H 132/88 H Blood Pressure [Right Brachial artery] O2 Saturation 100 100 09/02/21 09/02/21 09/02/21 18:00 18:40 18:54 Temperature 36.8 C 38.6 C H Heart Rate 105 H Heart Rate [ 109 H Monitoring electrodes] Respiratory 25 H 28 H Rate Blood Pressure 129/72 129/88 H Blood Pressure 127/69 [Right Brachial artery] O2 Saturation 100 100 09/02/21 09/02/21 09/02/21 19:07 19:09 19:45 Temperature Heart Rate Heart Rate [ 104 H 115 H Monitoring electrodes] Respiratory 28 H 27 H Rate Blood Pressure 126/82 H Blood Pressure 126/82 H 153/88 H [Right Brachial artery] O2 Saturation 100 100 09/02/21 09/02/21 09/02/21 19:55 20:53 21:00 Temperature Heart Rate 110 H Heart Rate [ 104 H 89 Monitoring electrodes] Respiratory 20 19 Rate Blood Pressure Blood Pressure 106/55 L 92/56 L [Right Brachial artery] O2 Saturation 100 09/02/21 09/02/21 09/02/21 21:35 22:30 23:40 Temperature Heart Rate 84 85 Heart Rate [ 87 Monitoring electrodes] Respiratory 17 Rate Blood Pressure Blood Pressure 109/84 H [Right Brachial artery] O2 Saturation 98 09/03/21 09/03/21 09/03/21 00:00 01:00 01:25 Temperature 37 C Heart Rate 87 Heart Rate [ 86 80 Monitoring electrodes] Respiratory 18 21 Rate Blood Pressure Blood Pressure 94/62 89/59 L [Right Brachial artery] O2 Saturation 99 99 09/03/21 09/03/21 09/03/21 02:00 03:00 03:35 Temperature 37 C Heart Rate 96 Heart Rate [ 86 89 Monitoring electrodes] Respiratory 20 23 Rate Blood Pressure Blood Pressure 99/66 118/65 [Right Brachial artery] O2 Saturation 99 99 09/03/21 09/03/21 09/03/21 04:00 05:05 05:09 Temperature 37 C Heart Rate 83 Heart Rate [ 88 95 Monitoring electrodes] Respiratory 22 23 Rate Blood Pressure Blood Pressure 101/72 112/60 [Right Brachial artery] O2 Saturation 100 97 09/03/21 09/03/21 09/03/21 06:00 07:00 07:10 Temperature 37.5 C Heart Rate Heart Rate [ 91 95 Monitoring electrodes] Respiratory 22 23 28 H Rate Blood Pressure Blood Pressure 95/65 115/76 [Right Brachial artery] O2 Saturation 100 100 100 09/03/21 08:00 Temperature 37.5 C Heart Rate Heart Rate [ 101 H Monitoring electrodes] Respiratory 25 H Rate Blood Pressure Blood Pressure 110/91 H [Right Brachial artery] O2 Saturation 100 Oxygen O2 Source Nasal cannula I&O (Last 24 Hrs): Intake and Output Totals x24h 09/01/21 09/02/21 09/03/21 23:59 23:59 23:59 Intake Total 28.117 330.75 Output Total 1000 815 Balance -971.883 -484.25 General: Alert, Oriented x3, No acute distress HEENT: Atraumatic, PERRLA Neck: Supple, No JVD Neuro: Alert, Oriented Times 3 Cardiovascular: Other (Irregularly irregular, tachycardic) Respiratory: Chest non-tender, Rhonchi (Mild) Abdomen: Normal bowel sounds, Soft, No tenderness, No masses Extremities: No clubbing, Other (+1 edema,) Comments/Notes: Erythema in lower extremities bilaterally. Open sores on lower extremity bilaterally. - Results Results: Laboratory Results WBC 6.8 x10^3/uL (4.8-10.8) 09/03/21 04:32 RBC 4.64 10^6/uL (4.70-6.10) L 09/03/21 04:32 Hgb 13.5 g/dL (14.0-18.0) L 09/03/21 04:32 Hct 43.9 % (42.0-52.0) 09/03/21 04:32 MCV 94.6 fL (80.0-94.0) H 09/03/21 04:32 MCH 29.1 pg (27.0-31.0) 09/03/21 04:32 MCHC 30.8 g/dL (32.0-36.0) L 09/03/21 04:32 RDW 12.7 % (12.0-15.0) 09/03/21 04:32 Plt Count 157 10^3/uL (130-450) 09/03/21 04:32 MPV 11.7 fL (7.4-11.4) H 09/03/21 04:32 Neut # (Auto) 4.5 10^3/uL (1.5-6.6) 09/03/21 04:32 Lymph # (Auto) 1.3 10^3/uL (1.5-3.5) L 09/03/21 04:32 [place] # (Auto) 0.8 10^3/uL (0.0-1.0) 09/03/21 04:32 Eos # (Auto) 0.1 10^3/uL (0.0-0.7) 09/03/21 04:32 Baso # (Auto) 0.0 10^3/uL (0.0-0.1) 09/03/21 04:32 Absolute Nucleated RBC 0.00 x10^3/uL 09/03/21 04:32 Nucleated RBC % 0.0 /100WBC 09/03/21 04:32 Sodium 135 mmol/L (135-145) 09/03/21 04:32 Potassium 5.1 mmol/L (3.5-5.0) H 09/03/21 04:32 Chloride 97 mmol/L (101-111) L 09/03/21 04:32 Carbon Dioxide 27 mmol/L (21-32) 09/03/21 04:32 Anion Gap 11.0 (6-13) 09/03/21 04:32 BUN 37 mg/dL (6-20) H 09/03/21 04:32 Creatinine 1.6 mg/dL (0.6-1.2) H 09/03/21 04:32 Estimated GFR (MDRD) 42 (>89) L 09/03/21 04:32 Glucose 215 mg/dL (70-100) H 09/03/21 04:32 Lactic Acid 2.4 mmol/L (0.5-2.2) H 09/02/21 19:59 Calcium 8.6 mg/dL (8.5-10.3) 09/03/21 04:32 Phosphorus 3.8 mg/dL (2.5-4.6) 09/03/21 04:32 Magnesium 2.1 mg/dL (1.7-2.8) 09/03/21 04:32 Total Bilirubin 0.5 mg/dL (0.2-1.0) 09/02/21 15:21 AST 23 IU/L (10-42) 09/02/21 15:21 ALT 14 IU/L (10-60) 09/02/21 15:21 Alkaline Phosphatase 93 IU/L (42-121) 09/02/21 15:21 Troponin I High Sens 46.1 ng/L (2.3-19.7) H* 09/03/21 04:32 B-Natriuretic Peptide 749 pg/mL (5-100) H 09/03/21 04:32 Total Protein 6.5 g/dL (6.7-8.2) L 09/02/21 15:21 Albumin 2.9 g/dL (3.2-5.5) L 09/02/21 15:21 Globulin 3.6 g/dL (2.1-4.2) 09/02/21 15:21 Albumin/Globulin Ratio 0.8 (1.0-2.2) L 09/02/21 15:21 Lipase 21 U/L (22-51) L 09/02/21 15:21 Nasal Adenovirus (PCR) NOT DETECTED 09/02/21 15:23 Nasal B. parapertussis DNA (PCR) NOT DETECTED 09/02/21 15:23 Nasal Coronavir 229E PCR NOT DETECTED 09/02/21 15:23 Nasal Coronavir HKU1 PCR NOT DETECTED 09/02/21 15:23 Nasal Coronavir NL63 PCR NOT DETECTED 09/02/21 15:23 Nasal Coronavir OC43 PCR NOT DETECTED 09/02/21 15:23 Nasal Enterovir/Rhinovir PCR NOT DETECTED 09/02/21 15:23 Nasal Influenza B PCR NOT DETECTED 09/02/21 15:23 Nasal Influenza A PCR NOT DETECTED 09/02/21 15:23 Nasal Parainfluen 1 PCR NOT DETECTED 09/02/21 15:23 Nasal Parainfluen 2 PCR NOT DETECTED 09/02/21 15:23 Nasal Parainfluen 3 PCR NOT DETECTED 09/02/21 15:23 Nasal Parainfluen 4 PCR NOT DETECTED 09/02/21 15:23 Nasal RSV (PCR) DETECTED A 09/02/21 15:23 Nasal Screen MRSA (PCR) NEGATIVE (NEGATIVE) 09/02/21 18:38 Nasal B.pertussis DNA PCR NOT DETECTED 09/02/21 15:23 Nasal C.pneumoniae (PCR) NOT DETECTED 09/02/21 15:23 [place] Human Metapneumo PCR NOT DETECTED 09/02/21 15:23 Nasal M.pneumoniae (PCR) NOT DETECTED 09/02/21 15:23 Nasal SARS-CoV-2 (PCR) NOT DETECTED 09/02/21 15:23 ABX Reporting Has patient been on IV antibiotics over the past 48 hours?: No
[2021-09-03 11:24] LABS: ESTIMATED AVERAGE GLUCOSE 283 mg/dL (70-100); HEMOGLOBIN A1c% 11.5 % (4.27-6.07)
[2021-09-03] MEDS: diltiaZEM INJ 125 MG in DEXTROSE 5% 100 ML IV SCH ×2 (11:30→23:16)
[2021-09-04] MEDS: SODIUM CHLORIDE FLUSH 0.9% 10 ML SYRINGE IVP PRN ×2 (01:58→06:11)
[2021-09-04] MEDS ORDERED: MORPHINE 2 MG/ML CARPUJECT IVP ONE (02:00)
[2021-09-04 04:32] LABS: BASOPHILS % (AUTO) 0.4 %; EOSINOPHILS # (AUTO) 0.1 10^3/uL (0.0-0.7); EOSINOPHILS % (AUTO) 1.7 %; HCT - HEMATOCRIT 38.7 % (42.0-52.0); HGB - HEMOGLOBIN 12.1 g/dL (14.0-18.0); LYMPHOCYTES # (AUTO) 1.8 10^3/uL (1.5-3.5); LYMPHOCYTES % (AUTO) 25.6 %; MEAN CORPUSCULAR HEMOGLOBIN 29.1 pg (27.0-31.0); MEAN CORPUSCULAR HGB CONC 31.3 g/dL (32.0-36.0); MEAN PLATELET VOLUME 11.6 fL (7.4-11.4); MONOCYTES # (AUTO) 0.8 10^3/uL (0.0-1.0); MONOCYTES % (AUTO) 11.5 %; NEUTROPHILS # (AUTO) 4.3 10^3/uL (1.5-6.6); NEUTROPHILS % (AUTO) 60.2 %; PLT - PLATELET COUNT 171 10^3/uL (130-450); RED BLOOD COUNT 4.16 10^6/uL (4.70-6.10); RED CELL DISTRIBUTION WIDTH 12.6 % (12.0-15.0); WHITE BLOOD COUNT 7.1 x10^3/uL (4.8-10.8)
[2021-09-04 04:43] LABS: CREATININE 1.6 mg/dL (0.6-1.2)
[2021-09-04 04:49] LABS: CALCIUM 8.1 mg/dL (8.5-10.3); POTASSIUM 4.7 mmol/L (3.5-5.0)
[2021-09-04] MEDS: FUROSEMIDE 40 MG/4 ML VIAL IVP SCH (06:11)
[2021-09-04] MEDS: PANTOPRAZOLE 40 MG VIAL IVP SCH (06:11)
--- NOTE | 2021-09-04 07:48 | PROVIDER PROGRESS NOTE ---
Assessment/Plan - Problem List (1) Atrial fibrillation with rapid ventricular response Assessment/Plan: Heart rate currently less than 100. Will wean patient off diltiazem drip. 100 mg p.o. twice daily On Eliquis 5 mg p.o. twice daily. (2) CHF exacerbation Qualifiers: Heart failure type: unspecified Qualified Code(s): I50.9 - Heart failure, unspecified Assessment/Plan: Improved. Patient is currently off BiPAP machine. He is on 2 L of oxygen via nasal cannula with oxygen saturation at 99%. Lasix 40 mg po daily. Nitroglycerin drip discontinued 09/03/21. Metoprolol succinate 100 mg p.o. twice daily. Spironolactone 25mg p.o. daily. 2D echocardiogram ordered for 09/05/21. Troponin trend was 42, then 64.8, then 46.1. Initial BNP was 932. Repeat BNP was 749. (3) Hyperkalemia Assessment/Plan: Improved/Resolved. Potassium currently at 4.7. We'll continue to monitor. Patient is on Lasix and insulin. (4) CAD (coronary artery disease) Assessment/Plan: Status post CABG in the past. Patient's ejection fraction is 20 to 30% per his last echocardiogram. Patient has an AICD device in place. Patient currently does not have chest pain. Initial troponin was 42. Repeat troponin was 64 and then 46.1 Patient is on a nitroglycerin drip for flash pulmonary edema. Metoprolol succinate 100 mg p.o. twice daily. Eliquis 5 mg p.o. twice daily. We will hold patient's losartan and spironolactone. Patient takes rosuvastatin 5 mg p.o. daily. (5) Diabetes mellitus Assessment/Plan: Very poorly controlled. Hemoglobin A1c was 11.5. Lantus 20 units subcu twice daily ordered High dose sliding scale insulin ordered. Accu Checks before every meal and at bedtime. Carb controlled diet ordered. (6) Parkinson disease Assessment/Plan: On carbidopa/levodopa (7) BPH (benign prostatic hyperplasia) Assessment/Plan: On doxazosin 8 mg p.o. daily. (8) URI (upper respiratory infection) Assessment/Plan: 2/2 RSV Supportive therapy (9) JOLLY (acute kidney injury) Assessment/Plan: Creatinine was 1.6 with eGFR of 42 Will monitor. (2) CHF exacerbation Qualifiers: Heart failure type: unspecified Qualified Code(s): I50.9 - Heart failure, unspecified - Current Meds Current Meds: Current Medications Generic Name Dose Route Start Last Admin Trade Name Freq PRN Reason Stop Dose Admin Apixaban 5 mg 09/02/21 21:00 09/03/21 19:59 Apixaban 5 Mg Tablet PO 5 mg BID BAYRON Administration Aspirin 81 mg 09/03/21 09:00 09/03/21 08:30 Aspirin Ec 81 Mg Tablet PO 81 mg DAILY BAYRON Administration Diltiazem HCl 125 mg/ Dextrose 125 mls @ 5 mls/hr 09/02/21 19:00 09/04/21 07:00 IV 8 mg/hr .Q25H BAYRON 8 mls/hr Titration Protocol 5 MG/HR Insulin Aspart 3 - 11 unit 09/02/21 21:00 09/03/21 20:06 Insulin Aspart 300 Unit/3 Ml Pen SUBQ 7 unit 0800,1200,1700,2100 BAYRON Administration Protocol Insulin Glargine 20 unit 09/02/21 21:00 09/03/21 20:06 Insulin Glargine 300 Unit/3 Ml Pen SUBQ 20 unit BID BAYRON Administration Metoprolol Succinate 100 mg 09/02/21 21:00 09/03/21 20:01 Metoprolol Succinate 50 Mg Tablet PO 100 mg BID BAYRON Administration Pantoprazole Sodium 40 mg 09/03/21 07:00 09/04/21 06:11 Pantoprazole 40 Mg Vial IVP 40 mg QDAC BAYRON Administration Sodium Chloride 10 ml 09/03/21 01:00 09/03/21 20:02 Sodium Chloride Flush 0.9% 10 Ml Syringe IVP 10 ml 0100,0900,1700 BAYRON Administration Sodium Chloride 10 ml 09/02/21 17:38 09/04/21 06:11 Sodium Chloride Flush 0.9% 10 Ml Syringe IVP 10 ml PRN PRN Administration NEEDED PER PROVIDER ORDERS Spironolactone 25 mg 09/03/21 09:00 09/03/21 08:30 Spironolactone 25 Mg Tablet PO 25 mg DAILY BAYRON Administration - Lab Result Fish Bone Diagrams: 09/04/21 04:23 09/04/21 04:23 - Additional Planning My Orders: My Active Orders 09/03/21 07:00 Pantoprazole [Protonix] 40 mg IVP QDAC 09/04/21 09:00 Furosemide [Lasix] 40 mg PO DAILY 09/05/21 05:00 BMP - BASIC METABOLIC PANEL [CHEM] DAILYLAB CBC - COMP BLD CT W/AUTO DIFF [HEME] DAILYLAB 09/06/21 05:00 BMP - BASIC METABOLIC PANEL [CHEM] DAILYLAB CBC - COMP BLD CT W/AUTO DIFF [HEME] DAILYLAB 09/07/21 05:00 BMP - BASIC METABOLIC PANEL [CHEM] DAILYLAB CBC - COMP BLD CT W/AUTO DIFF [HEME] DAILYLAB 09/08/21 05:00 BMP - BASIC METABOLIC PANEL [CHEM] DAILYLAB CBC - COMP BLD CT W/AUTO DIFF [HEME] DAILYLAB 09/09/21 05:00 BMP - BASIC METABOLIC PANEL [CHEM] DAILYLAB CBC - COMP BLD CT W/AUTO DIFF [HEME] DAILYLAB Subjective - Subjective Patient Reports: Other (Patient was very awake alert and oriented x4 today. Breathing with no difficulty. He was on 2 L of oxygen via nasal cannula with oxygen saturation in the high 90s. Denied chest pain.) Objective Vital Signs: Vital Signs - 24 hr 09/03/21 09/03/21 09/03/21 08:00 09:00 10:00 Temperature 37.5 C 37.2 C Heart Rate [ 101 H 94 94 Monitoring electrodes] Respiratory 25 H 19 18 Rate Blood Pressure 110/91 H 110/59 L 89/59 L [Right Brachial artery] O2 Saturation 100 100 99 09/03/21 09/03/21 09/03/21 11:00 12:00 13:00 Temperature Heart Rate [ 83 86 93 Monitoring electrodes] Respiratory 24 20 24 Rate Blood Pressure 117/63 103/54 L 101/55 L [Right Brachial artery] O2 Saturation 100 100 94 09/03/21 09/03/21 09/03/21 14:00 15:00 16:00 Temperature 36.6 C Heart Rate [ 89 91 90 Monitoring electrodes] Respiratory 26 H 28 H 30 H Rate Blood Pressure 107/61 116/61 124/63 [Right Brachial artery] O2 Saturation 95 99 96 09/03/21 09/03/21 09/03/21 17:00 18:00 19:00 Temperature 36.7 C Heart Rate [ 85 102 H 100 Monitoring electrodes] Respiratory 20 26 H 23 Rate Blood Pressure 107/54 L 111/78 116/70 [Right Brachial artery] O2 Saturation 97 96 95 09/03/21 09/03/21 09/03/21 20:00 21:00 22:00 Temperature 37.3 C Heart Rate [ 89 98 92 Monitoring electrodes] Respiratory 23 24 24 Rate Blood Pressure 91/60 110/72 99/57 L [Right Brachial artery] O2 Saturation 96 94 96 09/03/21 09/04/21 09/04/21 23:00 00:00 01:00 Temperature 37.2 C 37.2 C Heart Rate [ 101 H 90 98 Monitoring electrodes] Respiratory 26 H 22 28 H Rate Blood Pressure 116/48 L 97/74 121/83 H [Right Brachial artery] O2 Saturation 97 99 96 09/04/21 09/04/21 09/04/21 02:00 03:00 04:00 Temperature 37.2 C Heart Rate [ 88 84 80 Monitoring electrodes] Respiratory 23 22 21 Rate Blood Pressure 121/86 H 103/50 L 102/55 L [Right Brachial artery] O2 Saturation 96 93 96 09/04/21 09/04/21 09/04/21 05:00 06:00 07:00 Temperature 37.2 C Heart Rate [ 82 90 85 Monitoring electrodes] Respiratory 199 H 19 23 Rate Blood Pressure 95/56 L 105/55 L 108/64 [Right Brachial artery] O2 Saturation 2 L 95 92 Oxygen O2 Source Nasal cannula I&O (Last 24 Hrs): Intake and Output Totals x24h 09/02/21 09/03/21 09/04/21 23:59 23:59 23:59 Intake Total 64.117 967.766 211.867 Output Total 1000 1940 420 Balance -935.883 -972.234 -208.133 Comments/Notes: General: Alert, Oriented x3, No acute distress HEENT: Atraumatic, PERRLA Neck: Supple, No JVD Neuro: Alert, Oriented Times 3 Cardiovascular: Other (Irregularly irregular, tachycardic) Respiratory: Chest non-tender, Rhonchi (Mild) Abdomen: Normal bowel sounds, Soft, No tenderness, No masses Extremities: No clubbing, Other (+1 edema,) Comments/Notes: Erythema in lower extremities bilaterally. Open sores on lower extremity bilaterally. - Results Results: Laboratory Results WBC 7.1 x10^3/uL (4.8-10.8) 09/04/21 04:23 RBC 4.16 10^6/uL (4.70-6.10) L 09/04/21 04:23 Hgb 12.1 g/dL (14.0-18.0) L 09/04/21 04:23 Hct 38.7 % (42.0-52.0) L 09/04/21 04:23 MCV 93.0 fL (80.0-94.0) 09/04/21 04:23 MCH 29.1 pg (27.0-31.0) 09/04/21 04:23 MCHC 31.3 g/dL (32.0-36.0) L 09/04/21 04:23 RDW 12.6 % (12.0-15.0) 09/04/21 04:23 Plt Count 171 10^3/uL (130-450) 09/04/21 04:23 MPV 11.6 fL (7.4-11.4) H 09/04/21 04:23 Neut # (Auto) 4.3 10^3/uL (1.5-6.6) 09/04/21 04:23 Lymph # (Auto) 1.8 10^3/uL (1.5-3.5) 09/04/21 04:23 [place] # (Auto) 0.8 10^3/uL (0.0-1.0) 09/04/21 04:23 Eos # (Auto) 0.1 10^3/uL (0.0-0.7) 09/04/21 04:23 Baso # (Auto) 0.0 10^3/uL (0.0-0.1) 09/04/21 04:23 Absolute Nucleated RBC 0.00 x10^3/uL 09/04/21 04:23 Nucleated RBC % 0.0 /100WBC 09/04/21 04:23 Sodium 133 mmol/L (135-145) L 09/04/21 04:23 Potassium 4.7 mmol/L (3.5-5.0) 09/04/21 04:23 Chloride 98 mmol/L (101-111) L 09/04/21 04:23 Carbon Dioxide 26 mmol/L (21-32) 09/04/21 04:23 Anion Gap 9.0 (6-13) 09/04/21 04:23 BUN 42 mg/dL (6-20) H 09/04/21 04:23 Creatinine 1.6 mg/dL (0.6-1.2) H 09/04/21 04:23 Estimated GFR (MDRD) 42 (>89) L 09/04/21 04:23 Glucose 84 mg/dL (70-100) 09/04/21 04:23 Estimat Average Glucose 283 mg/dL (70-100) H 09/03/21 04:32 Hemoglobin A1c % 11.5 % (4.27-6.07) H 09/03/21 04:32 Lactic Acid 2.4 mmol/L (0.5-2.2) H 09/02/21 19:59 Calcium 8.1 mg/dL (8.5-10.3) L 09/04/21 04:23 Phosphorus 3.8 mg/dL (2.5-4.6) 09/03/21 04:32 Magnesium 2.1 mg/dL (1.7-2.8) 09/03/21 04:32 Total Bilirubin 0.5 mg/dL (0.2-1.0) 09/02/21 15:21 AST 23 IU/L (10-42) 09/02/21 15:21 ALT 14 IU/L (10-60) 09/02/21 15:21 Alkaline Phosphatase 93 IU/L (42-121) 09/02/21 15:21 Troponin I High Sens 46.1 ng/L (2.3-19.7) H* 09/03/21 04:32 B-Natriuretic Peptide 749 pg/mL (5-100) H 09/03/21 04:32 Total Protein 6.5 g/dL (6.7-8.2) L 09/02/21 15:21 Albumin 2.9 g/dL (3.2-5.5) L 09/02/21 15:21 Globulin 3.6 g/dL (2.1-4.2) 09/02/21 15:21 Albumin/Globulin Ratio 0.8 (1.0-2.2) L 09/02/21 15:21 Lipase 21 U/L (22-51) L 09/02/21 15:21 Nasal Adenovirus (PCR) NOT DETECTED 09/02/21 15:23 Nasal B. parapertussis DNA (PCR) NOT DETECTED 09/02/21 15:23 Nasal Coronavir 229E PCR NOT DETECTED 09/02/21 15:23 Nasal Coronavir HKU1 PCR NOT DETECTED 09/02/21 15:23 Nasal Coronavir NL63 PCR NOT DETECTED 09/02/21 15:23 Nasal Coronavir OC43 PCR NOT DETECTED 09/02/21 15:23 Nasal Enterovir/Rhinovir PCR NOT DETECTED 09/02/21 15:23 Nasal Influenza B PCR NOT DETECTED 09/02/21 15:23 Nasal Influenza A PCR NOT DETECTED 09/02/21 15:23 Nasal Parainfluen 1 PCR NOT DETECTED 09/02/21 15:23 Nasal Parainfluen 2 PCR NOT DETECTED 09/02/21 15:23 Nasal Parainfluen 3 PCR NOT DETECTED 09/02/21 15:23 Nasal Parainfluen 4 PCR NOT DETECTED 09/02/21 15:23 Nasal RSV (PCR) DETECTED A 09/02/21 15:23 Nasal Screen MRSA (PCR) NEGATIVE (NEGATIVE) 09/02/21 18:38 Nasal B.pertussis DNA PCR NOT DETECTED 09/02/21 15:23 Nasal C.pneumoniae (PCR) NOT DETECTED 09/02/21 15:23 [place] Human Metapneumo PCR NOT DETECTED 09/02/21 15:23 Nasal M.pneumoniae (PCR) NOT DETECTED 09/02/21 15:23 Nasal SARS-CoV-2 (PCR) NOT DETECTED 09/02/21 15:23 ABX Reporting Has patient been on IV antibiotics over the past 48 hours?: Yes
[2021-09-04] MEDS: ASPIRIN EC 81 MG TABLET PO SCH (08:52)
[2021-09-04] MEDS: APIXABAN 5 MG TABLET PO SCH ×2 (08:52→21:18)
[2021-09-04] MEDS: METOPROLOL SUCCINATE 50 MG TABLET PO SCH ×2 (08:53→21:18)
[2021-09-04] MEDS: INSULIN GLARGINE 300 UNIT/3 ML PEN SUBQ SCH ×2 (09:00→21:19)
[2021-09-04] MEDS: SODIUM CHLORIDE FLUSH 0.9% 10 ML SYRINGE IVP SCH ×2 (09:00→16:50)
[2021-09-04] MEDS: INSULIN ASPART 300 UNIT/3 ML PEN SUBQ SCH ×4 (09:00→20:35)
[2021-09-04] MEDS: SPIRONOLACTONE 25 MG TABLET PO SCH (09:00)
[2021-09-05] MEDS: SODIUM CHLORIDE FLUSH 0.9% 10 ML SYRINGE IVP SCH ×5 (00:04→21:30)
[2021-09-05 05:45] LABS: CALCIUM, IONIZED 1.07 mmol/L (1.15-1.33); VBG PH 7.351 (7.31-7.41)
[2021-09-05 05:48] LABS: BASOPHILS % (AUTO) 0.2 %; EOSINOPHILS % (AUTO) 2.5 %; HGB - HEMOGLOBIN 12.5 g/dL (14.0-18.0); LYMPHOCYTES % (AUTO) 24.9 %; MEAN CORPUSCULAR HEMOGLOBIN 28.9 pg (27.0-31.0); MEAN CORPUSCULAR HGB CONC 31.3 g/dL (32.0-36.0); MEAN CORPUSCULAR VOLUME 92.4 fL (80.0-94.0); MEAN PLATELET VOLUME 11.8 fL (7.4-11.4); MONOCYTES % (AUTO) 13.7 %; PLT - PLATELET COUNT 203 10^3/uL (130-450); RED BLOOD COUNT 4.33 10^6/uL (4.70-6.10); RED CELL DISTRIBUTION WIDTH 12.6 % (12.0-15.0)
[2021-09-05 05:50] LABS: ABNORMAL LYMPHS % (MANUAL) 0 %; BAND NEUTROPHILS % (MANUAL) 0 %
[2021-09-05 06:00] LABS: CALCIUM 8.3 mg/dL (8.5-10.3); CREATININE 1.5 mg/dL (0.6-1.2); MAGNESIUM 1.9 mg/dL (1.7-2.8); PHOSPHORUS 4.2 mg/dL (2.5-4.6); POTASSIUM 4.8 mmol/L (3.5-5.0)
[2021-09-05 06:07] LABS: DIFFERENTIAL COMMENT MANUAL DIFFERENTIAL; EOSINOPHILS # (MANUAL) 0.1 10^3/uL (0-0.7); LYMPHOCYTES # (MANUAL) 1.9 10^3/uL (1.5-3.5); LYMPHOCYTES % (MANUAL) 24 %; MONOCYTES # (MANUAL) 0.9 10^3/uL (0.0-1.0); NEUTROPHILS # (MANUAL) 5.1 10^3/uL (1.5-6.6); PLATELET ESTIMATE, MANUAL NORMAL (130-450,000) (NORMAL); PLATELET MORPHOLOGY NORMAL APPEARANCE (NORMAL); RBC MORPHOLOGY (MULTIPLE) NORMAL APPEARANCE (NORMAL); WBC MORPHOLOGY (MULTIPLE) NORMAL APPEARANCE (NORMAL)
--- NOTE | 2021-09-05 08:14 | PROVIDER PROGRESS NOTE ---
Assessment/Plan - Problem List (1) Atrial fibrillation with rapid ventricular response Assessment/Plan: Heart rate currently less than 100. Diltiazem drip discontinued on the evening of 09/04/2021. 100 mg p.o. twice daily On Eliquis 5 mg p.o. twice daily. Patient downgraded to MedSurg status. Physical therapy to evaluate and treat the patient. Patient would likely need to go to SNF for rehab. Social work to help facilitate discharge planning. (2) CHF exacerbation Qualifiers: Heart failure type: unspecified Qualified Code(s): I50.9 - Heart failure, unspecified Assessment/Plan: Improved. He is on 1 L of oxygen via nasal cannula with oxygen saturation at 99%. Lasix 40 mg po daily. Nitroglycerin drip discontinued 09/03/21. Metoprolol succinate 100 mg p.o. twice daily. Spironolactone 25mg p.o. daily. 2D echocardiogram done 09/05/2021 showed Severely impaired left ventricular systolic function with ejection fraction of 25 to 30%. Diastology and subtle regional wall motion anxieties with difficult to assess due to arrhythmia. Normal functioning bioprosthetic valve in the aortic position was noted. RVSP is 49 mmHg Troponin trend was 42, then 64.8, then 46.1. Initial BNP was 932. Repeat BNP was 749. (3) Hyperkalemia Assessment/Plan: Improved/Resolved. Potassium currently at 4.8. We'll continue to monitor. Patient is on Lasix and insulin. (4) CAD (coronary artery disease) Assessment/Plan: Status post CABG in the past. Patient's ejection fraction is 20 to 30% per his last echocardiogram. 2D echocardiogram done 09/05/2021 showed Severely impaired left ventricular systolic function with ejection fraction of 25 to 30%. Diastology and subtle regional wall motion anxieties with difficult to assess due to arrhythmia. Normal functioning bioprosthetic valve in the aortic position was noted. RVSP is 49 mmHg Patient has an AICD device in place. Patient currently does not have chest pain. Initial troponin was 42. Repeat troponin was 64 and then 46.1 Patient is on a nitroglycerin drip for flash pulmonary edema. Metoprolol succinate 100 mg p.o. twice daily. Eliquis 5 mg p.o. twice daily. We will hold patient's losartan and spironolactone. Patient takes rosuvastatin 5 mg p.o. daily. (5) Diabetes mellitus Assessment/Plan: Very poorly controlled. Hemoglobin A1c was 11.5. Lantus 20 units subcu twice daily ordered High dose sliding scale insulin ordered. Accu Checks before every meal and at bedtime. Carb controlled diet ordered. (6) Parkinson disease Assessment/Plan: On carbidopa/levodopa (7) BPH (benign prostatic hyperplasia) Assessment/Plan: On doxazosin 8 mg p.o. daily. (8) URI (upper respiratory infection) Assessment/Plan: 2/2 RSV Supportive therapy (9) JOLLY (acute kidney injury) Assessment/Plan: Creatinine was 1.6 with eGFR of 42 Will monitor. (2) CHF exacerbation Qualifiers: Heart failure type: unspecified Qualified Code(s): I50.9 - Heart failure, unspecified - Current Meds Current Meds: Current Medications Generic Name Dose Route Start Last Admin Trade Name Freq PRN Reason Stop Dose Admin Apixaban 5 mg 09/02/21 21:00 09/04/21 21:18 Apixaban 5 Mg Tablet PO 5 mg BID [facility] Administration Aspirin 81 mg 09/03/21 09:00 09/04/21 08:52 Aspirin Ec 81 Mg Tablet PO 81 mg DAILY [facility] Administration Insulin Aspart 3 - 11 unit 09/02/21 21:00 09/04/21 20:35 Insulin Aspart 300 Unit/3 Ml Pen SUBQ Not Given 0800,1200,1700,2100 [facility] Protocol Insulin Glargine 20 unit 09/02/21 21:00 09/04/21 21:19 Insulin Glargine 300 Unit/3 Ml Pen SUBQ 20 unit BID [facility] Administration Metoprolol Succinate 100 mg 09/02/21 21:00 09/04/21 21:18 Metoprolol Succinate 50 Mg Tablet PO 100 mg BID [facility] Administration Sodium Chloride 10 ml 09/03/21 01:00 09/05/21 00:04 Sodium Chloride Flush 0.9% 10 Ml Syringe IVP 10 ml 0100,0900,1700 [facility] Administration Sodium Chloride 10 ml 09/02/21 17:38 09/04/21 06:11 Sodium Chloride Flush 0.9% 10 Ml Syringe IVP 10 ml PRN PRN Administration NEEDED PER PROVIDER ORDERS Spironolactone 25 mg 09/03/21 09:00 09/04/21 09:00 Spironolactone 25 Mg Tablet PO 25 mg DAILY [facility] Administration - Lab Result Fish Bone Diagrams: 09/05/21 05:20 09/05/21 05:20 - Additional Planning My Orders: My Active Orders 09/05/21 06:20 Min Oil/Dimeth/Coconut Oil Crm [Cavilon] 1 applic TOP PRN PRN 09/05/21 07:00 Calcium Carbonate [Tums] 1,250 mg PO Q4H Pantoprazole [Protonix] 40 mg PO QDAC 09/05/21 09:00 Furosemide [Lasix] 40 mg PO DAILY 09/05/21 10:00 Echo Transthoracic Complete [ECHO] Routine 09/06/21 05:00 BMP - BASIC METABOLIC PANEL [CHEM] DAILYLAB CALCIUM, IONIZED ([facility]) [BG] DAILYLAB CBC - COMP BLD CT W/AUTO DIFF [HEME] DAILYLAB MAGNESIUM [CHEM] DAILYLAB PHOSPHORUS [CHEM] DAILYLAB 09/07/21 05:00 BMP - BASIC METABOLIC PANEL [CHEM] DAILYLAB CBC - COMP BLD CT W/AUTO DIFF [HEME] DAILYLAB 09/08/21 05:00 BMP - BASIC METABOLIC PANEL [CHEM] DAILYLAB CBC - COMP BLD CT W/AUTO DIFF [HEME] DAILYLAB 09/09/21 05:00 BMP - BASIC METABOLIC PANEL [CHEM] DAILYLAB CBC - COMP BLD CT W/AUTO DIFF [HEME] DAILYLAB Subjective - Subjective Patient Reports: Other (He was resting comfortably in bed at time of exam. He denied difficulty in breathing but had a cough. He also appears fatigued. He was breathing comfortably on room air.) Objective Vital Signs: Vital Signs - 24 hr 09/04/21 09/04/21 09/04/21 08:30 09:00 10:00 Temperature Heart Rate [ 81 81 Monitoring electrodes] Heart Rate [ Sitting] Respiratory 22 20 24 Rate Blood Pressure 97/53 L 111/55 L [Right Brachial artery] Blood Pressure [Sitting] O2 Saturation 94 95 94 09/04/21 09/04/21 09/04/21 11:00 12:00 12:15 Temperature 37.0 C Heart Rate [ 83 83 Monitoring electrodes] Heart Rate [ Sitting] Respiratory 19 20 20 Rate Blood Pressure 117/61 114/50 L [Right Brachial artery] Blood Pressure [Sitting] O2 Saturation 93 95 92 09/04/21 09/04/21 09/04/21 12:40 13:00 14:00 Temperature Heart Rate [ 84 91 Monitoring electrodes] Heart Rate [ Sitting] Respiratory 20 22 17 Rate Blood Pressure 114/60 105/62 [Right Brachial artery] Blood Pressure [Sitting] O2 Saturation 93 93 94 09/04/21 09/04/21 09/04/21 14:10 15:00 16:00 Temperature 36.6 C Heart Rate [ 92 85 Monitoring electrodes] Heart Rate [ 89 Sitting] Respiratory 18 24 Rate Blood Pressure 97/63 105/57 L [Right Brachial artery] Blood Pressure 120/78 [Sitting] O2 Saturation 96 93 09/04/21 09/04/21 09/04/21 17:00 18:00 19:00 Temperature Heart Rate [ 85 85 85 Monitoring electrodes] Heart Rate [ Sitting] Respiratory 20 18 20 Rate Blood Pressure 85/71 L 105/67 112/61 [Right Brachial artery] Blood Pressure [Sitting] O2 Saturation 95 92 92 09/04/21 09/04/21 09/04/21 19:46 20:00 21:00 Temperature 36.5 C 36.7 C Heart Rate [ 94 93 Monitoring electrodes] Heart Rate [ Sitting] Respiratory 32 H 19 Rate Blood Pressure 112/61 106/63 [Right Brachial artery] Blood Pressure [Sitting] O2 Saturation 97 95 09/04/21 09/04/21 09/05/21 22:00 23:00 00:00 Temperature 36.7 C Heart Rate [ 99 100 109 H Monitoring electrodes] Heart Rate [ Sitting] Respiratory 20 28 H 22 Rate Blood Pressure 99/75 116/92 H 93/64 [Right Brachial artery] Blood Pressure [Sitting] O2 Saturation 94 91 L 96 09/05/21 09/05/21 09/05/21 01:00 02:00 03:20 Temperature Heart Rate [ 102 H 94 96 Monitoring electrodes] Heart Rate [ Sitting] Respiratory 24 20 22 Rate Blood Pressure 99/66 117/73 108/84 H [Right Brachial artery] Blood Pressure [Sitting] O2 Saturation 95 96 97 09/05/21 09/05/21 09/05/21 04:00 05:00 06:00 Temperature 36.9 C Heart Rate [ 100 102 H 101 H Monitoring electrodes] Heart Rate [ Sitting] Respiratory 19 20 22 Rate Blood Pressure 115/90 H 103/79 106/70 [Right Brachial artery] Blood Pressure [Sitting] O2 Saturation 98 99 93 09/05/21 07:00 Temperature Heart Rate [ 98 Monitoring electrodes] Heart Rate [ Sitting] Respiratory 21 Rate Blood Pressure 121/74 [Right Brachial artery] Blood Pressure [Sitting] O2 Saturation 92 Oxygen O2 Source Nasal cannula I&O (Last 24 Hrs): Intake and Output Totals x24h 09/03/21 09/04/21 09/05/21 23:59 23:59 23:59 Intake Total 967.766 496.000 120 Output Total 1940 1363 177 Balance -972.234 -867.000 -57 Comments/Notes: General: Alert, Oriented x3, No acute distress HEENT: Atraumatic, PERRLA Neck: Supple, No JVD Neuro: Alert, Oriented Times 3 Cardiovascular: Other (Irregularly irregular, regular rhythm) Respiratory: Chest non-tender, Rhonchi (Mild) Abdomen: Normal bowel sounds, Soft, No tenderness, No masses Extremities: No clubbing, Other (+1 edema,) Comments/Notes: Erythema in lower extremities bilaterally. Open sores on lower extremity bilaterally. - Results Results: Laboratory Results WBC 8.0 x10^3/uL (4.8-10.8) 09/05/21 05:20 RBC 4.33 10^6/uL (4.70-6.10) L 09/05/21 05:20 Hgb 12.5 g/dL (14.0-18.0) L 09/05/21 05:20 Hct 40.0 % (42.0-52.0) L 09/05/21 05:20 MCV 92.4 fL (80.0-94.0) 09/05/21 05:20 MCH 28.9 pg (27.0-31.0) 09/05/21 05:20 MCHC 31.3 g/dL (32.0-36.0) L 09/05/21 05:20 RDW 12.6 % (12.0-15.0) 09/05/21 05:20 Plt Count 203 10^3/uL (130-450) 09/05/21 05:20 MPV 11.8 fL (7.4-11.4) H 09/05/21 05:20 Neut # (Auto) Not Reportable 09/05/21 05:20 Lymph # (Auto) Not Reportable 09/05/21 05:20 Holmes # (Auto) Not Reportable 09/05/21 05:20 Eos # (Auto) Not Reportable 09/05/21 05:20 Baso # (Auto) Not Reportable 09/05/21 05:20 Absolute Nucleated RBC Not Reportable 09/05/21 05:20 Total Counted 100 09/05/21 05:20 Band Neuts % (Manual) 0 % (0-10) 09/05/21 05:20 Abnorm Lymph % (Manual) 0 % 09/05/21 05:20 Nucleated RBC % Not Reportable 09/05/21 05:20 Neutrophils # (Manual) 5.1 10^3/uL (1.5-6.6) 09/05/21 05:20 Lymphocytes # (Manual) 1.9 10^3/uL (1.5-3.5) 09/05/21 05:20 Monocytes # (Manual) 0.9 10^3/uL (0.0-1.0) 09/05/21 05:20 Eosinophils # (Manual) 0.1 10^3/uL (0-0.7) 09/05/21 05:20 Basophils # (Manual) 0.0 10^3/uL (0-0.1) 09/05/21 05:20 Differential Comment MANUAL DIFFERENTIAL 09/05/21 05:20 WBC Morphology NORMAL APPEARANCE (NORMAL) 09/05/21 05:20 Platelet Estimate NORMAL (130-450,000) (NORMAL) 09/05/21 05:20 Platelet Morphology NORMAL APPEARANCE (NORMAL) 09/05/21 05:20 RBC Morph Micro Appear NORMAL APPEARANCE (NORMAL) 09/05/21 05:20 VBG pH 7.351 (7.31-7.41) 09/05/21 05:20 Ionized Calcium 1.07 mmol/L (1.15-1.33) L 09/05/21 05:20 Sodium 135 mmol/L (135-145) 09/05/21 05:20 Potassium 4.8 mmol/L (3.5-5.0) 09/05/21 05:20 Chloride 96 mmol/L (101-111) L 09/05/21 05:20 Carbon Dioxide 28 mmol/L (21-32) 09/05/21 05:20 Anion Gap 11.0 (6-13) 09/05/21 05:20 BUN 51 mg/dL (6-20) H 09/05/21 05:20 Creatinine 1.5 mg/dL (0.6-1.2) H 09/05/21 05:20 Estimated GFR (MDRD) 45 (>89) L 09/05/21 05:20 Glucose 158 mg/dL (70-100) H 09/05/21 05:20 Estimat Average Glucose 283 mg/dL (70-100) H 09/03/21 04:32 Hemoglobin A1c % 11.5 % (4.27-6.07) H 09/03/21 04:32 Lactic Acid 2.4 mmol/L (0.5-2.2) H 09/02/21 19:59 Calcium 8.3 mg/dL (8.5-10.3) L 09/05/21 05:20 Phosphorus 4.2 mg/dL (2.5-4.6) 09/05/21 05:20 Magnesium 1.9 mg/dL (1.7-2.8) 09/05/21 05:20 Total Bilirubin 0.5 mg/dL (0.2-1.0) 09/02/21 15:21 AST 23 IU/L (10-42) 09/02/21 15:21 ALT 14 IU/L (10-60) 09/02/21 15:21 Alkaline Phosphatase 93 IU/L (42-121) 09/02/21 15:21 Troponin I High Sens 46.1 ng/L (2.3-19.7) H* 09/03/21 04:32 B-Natriuretic Peptide 749 pg/mL (5-100) H 09/03/21 04:32 Total Protein 6.5 g/dL (6.7-8.2) L 09/02/21 15:21 Albumin 2.9 g/dL (3.2-5.5) L 09/02/21 15:21 Globulin 3.6 g/dL (2.1-4.2) 09/02/21 15:21 Albumin/Globulin Ratio 0.8 (1.0-2.2) L 09/02/21 15:21 Lipase 21 U/L (22-51) L 09/02/21 15:21 Nasal Adenovirus (PCR) NOT DETECTED 09/02/21 15:23 Nasal B. parapertussis DNA (PCR) NOT DETECTED 09/02/21 15:23 Nasal Coronavir 229E PCR NOT DETECTED 09/02/21 15:23 Nasal Coronavir HKU1 PCR NOT DETECTED 09/02/21 15:23 Nasal Coronavir NL63 PCR NOT DETECTED 09/02/21 15:23 Nasal Coronavir OC43 PCR NOT DETECTED 09/02/21 15:23 Nasal Enterovir/Rhinovir PCR NOT DETECTED 09/02/21 15:23 Nasal Influenza B PCR NOT DETECTED 09/02/21 15:23 Nasal Influenza A PCR NOT DETECTED 09/02/21 15:23 Nasal Parainfluen 1 PCR NOT DETECTED 09/02/21 15:23 Nasal Parainfluen 2 PCR NOT DETECTED 09/02/21 15:23 Nasal Parainfluen 3 PCR NOT DETECTED 09/02/21 15:23 Nasal Parainfluen 4 PCR NOT DETECTED 09/02/21 15:23 Nasal RSV (PCR) DETECTED A 09/02/21 15:23 Nasal Screen MRSA (PCR) NEGATIVE (NEGATIVE) 09/02/21 18:38 Nasal B.pertussis DNA PCR NOT DETECTED 09/02/21 15:23 Nasal C.pneumoniae (PCR) NOT DETECTED 09/02/21 15:23 [place] Human Metapneumo PCR NOT DETECTED 09/02/21 15:23 Nasal M.pneumoniae (PCR) NOT DETECTED 09/02/21 15:23 Nasal SARS-CoV-2 (PCR) NOT DETECTED 09/02/21 15:23 ABX Reporting Has patient been on IV antibiotics over the past 48 hours?: No
[2021-09-05] MEDS: INSULIN GLARGINE 300 UNIT/3 ML PEN SUBQ SCH ×2 (09:00→21:31)
[2021-09-05] MEDS: INSULIN ASPART 300 UNIT/3 ML PEN SUBQ SCH ×4 (09:07→21:31)
[2021-09-05] MEDS: PANTOPRAZOLE 40 MG TABLET PO SCH (09:29)
[2021-09-05] MEDS: IPRATROPIUM/ALBUTEROL 3 ML NEB INH SCH ×4 (09:31→21:02)
[2021-09-05] MEDS: ASPIRIN EC 81 MG TABLET PO SCH (09:36)
[2021-09-05] MEDS: SPIRONOLACTONE 25 MG TABLET PO SCH (09:37)
[2021-09-05] MEDS: APIXABAN 5 MG TABLET PO SCH ×2 (09:42→21:30)
[2021-09-05] MEDS: METOPROLOL SUCCINATE 50 MG TABLET PO SCH ×2 (09:43→21:29)
[2021-09-05] MEDS: FUROSEMIDE 40 MG TABLET PO SCH (09:44)
[2021-09-05] MEDS: guaiFENesin/DEXTROMETHORPHAN 10 ML UDC PO PRN ×2 (09:48→16:59)
[2021-09-05] MEDS: CALCIUM CARBONATE CHEW 500 MG TABLET PO SCH ×2 (09:51→12:56)
--- NOTE | 2021-09-05 11:06 | PHARMACY PROGRESS NOTE ---
- Best Possible Medication History Admit Date and Time: 09/02/21 1736 Processed by: Pharmacy Medication History completed: Yes Patient Interview: Completed (PATIENT ABLE TO CONFIRM HOME MEDICATIONS) As the person ultimately responsible for medication therapy, providers are able to order a medication from an existing home medication list in [facility] via the "Reconcile Routine" prior to Confirmation of that medication by systems support officer. Such practice is discouraged except when the physician, in their clinical judgment, deems that a medical need exists for a medication without regard to previous use.
[2021-09-05] MEDS: SODIUM CHLORIDE FLUSH 0.9% 10 ML SYRINGE IVP PRN (21:30)
[2021-09-05] MEDS: MIN OIL/DIMETHICON/COCONUT OIL 92 GM TUBE TOP PRN (21:35)
[2021-09-06] MEDS: guaiFENesin/DEXTROMETHORPHAN 10 ML UDC PO PRN ×2 (05:16→21:18)
[2021-09-06 05:51] LABS: BASOPHILS % (AUTO) 0.2 %; EOSINOPHILS % (AUTO) 1.9 %; HCT - HEMATOCRIT 39.7 % (42.0-52.0); HGB - HEMOGLOBIN 12.5 g/dL (14.0-18.0); LYMPHOCYTES % (AUTO) 25.5 %; MEAN CORPUSCULAR HEMOGLOBIN 28.7 pg (27.0-31.0); MEAN CORPUSCULAR HGB CONC 31.5 g/dL (32.0-36.0); MEAN CORPUSCULAR VOLUME 91.3 fL (80.0-94.0); MEAN PLATELET VOLUME 11.8 fL (7.4-11.4); MONOCYTES % (AUTO) 9.2 %; NEUTROPHILS % (AUTO) 62.5 %; PLT - PLATELET COUNT 235 10^3/uL (130-450); RED BLOOD COUNT 4.35 10^6/uL (4.70-6.10); RED CELL DISTRIBUTION WIDTH 12.4 % (12.0-15.0); WHITE BLOOD COUNT 10.2 x10^3/uL (4.8-10.8)
[2021-09-06 05:53] LABS: CALCIUM, IONIZED 1.05 mmol/L (1.15-1.33); VBG PH 7.435 (7.31-7.41)
[2021-09-06 05:56] LABS: BAND NEUTROPHILS % (MANUAL) 0 %
[2021-09-06 06:04] LABS: CALCIUM 8.2 mg/dL (8.5-10.3); CREATININE 1.3 mg/dL (0.6-1.2); PHOSPHORUS 3.7 mg/dL (2.5-4.6); POTASSIUM 4.4 mmol/L (3.5-5.0)
[2021-09-06 06:09] LABS: ABNORMAL LYMPHS % (MANUAL) 2 %; DIFFERENTIAL COMMENT MANUAL DIFFERENTIAL; EOSINOPHILS # (MANUAL) 0.2 10^3/uL (0-0.7); LYMPHOCYTES # (MANUAL) 2.3 10^3/uL (1.5-3.5); LYMPHOCYTES % (MANUAL) 21 %; MONOCYTES # (MANUAL) 0.7 10^3/uL (0.0-1.0); NEUTROPHILS # (MANUAL) 6.9 10^3/uL (1.5-6.6); PLATELET ESTIMATE, MANUAL NORMAL (130-450,000) (NORMAL); PLATELET MORPHOLOGY NORMAL APPEARANCE (NORMAL); RBC MORPHOLOGY (MULTIPLE) NORMAL APPEARANCE (NORMAL); WBC MORPHOLOGY (MULTIPLE) NORMAL APPEARANCE (NORMAL)
[2021-09-06] MEDS: PANTOPRAZOLE 40 MG TABLET PO SCH (06:54)
[2021-09-06] MEDS: IPRATROPIUM/ALBUTEROL 3 ML NEB INH SCH ×3 (07:38→16:36)
--- NOTE | 2021-09-06 07:53 | PROVIDER PROGRESS NOTE ---
Subjective - Prog Note Date Prog Note Date: 09/06/21 - Subjective Subjective: He feels better but not back to baseline. Still feels short of breath with activity. Has an occasional cough. Denies any chest pain. Current Medications - Current Medications Current Medications: Active Medications Acetaminophen (Acetaminophen 325 Mg Tablet) 650 mg PO Q4HR PRN PRN Reason: Pain or Fever > 38C (100.4F) Albuterol/Ipratropium (Ipratropium/Albuterol 3 Ml Neb) 3 ml INH RTQID [facility] Last Admin: 09/06/21 11:36 Dose: 3 ml Documented by: Apixaban (Apixaban 5 Mg Tablet) 5 mg PO BID [facility] Last Admin: 09/06/21 10:40 Dose: 5 mg Documented by: Aspirin (Aspirin Ec 81 Mg Tablet) 81 mg PO DAILY [facility] Last Admin: 09/06/21 10:40 Dose: 81 mg Documented by: Furosemide (Furosemide 40 Mg/4 Ml Vial) 40 mg IVP DAILY [facility] Guaifenesin (Guaifenesin/Dextromethorphan 10 Ml Udc) 10 ml PO Q6HR PRN PRN Reason: Cough Last Admin: 09/06/21 05:16 Dose: 10 ml Documented by: Insulin Aspart (Insulin Aspart 300 Unit/3 Ml Pen) 3 - 11 unit SUBQ 0800,1200,1700,2100 [facility]; Protocol Last Admin: 09/06/21 12:33 Dose: Not Given Documented by: Insulin Glargine (Insulin Glargine 300 Unit/3 Ml Pen) 20 unit SUBQ BID [facility] Last Admin: 09/06/21 10:43 Dose: 20 unit Documented by: Metoprolol Succinate (Metoprolol Succinate 50 Mg Tablet) 100 mg PO BID [facility] Last Admin: 09/06/21 10:38 Dose: 100 mg Documented by: Mineral Oil (Min Oil/Dimethicon/Coconut Oil 92 Gm Tube) 1 applic TOP PRN PRN PRN Reason: Skin Care Last Admin: 09/05/21 21:35 Dose: 1 applic Documented by: Ondansetron HCl (Ondansetron 4 Mg/2 Ml Vial) 4 mg IVP Q6HR PRN PRN Reason: Nausea / Vomiting Pantoprazole Sodium (Pantoprazole 40 Mg Tablet) 40 mg PO QDAC [facility] Last Admin: 09/06/21 06:54 Dose: 40 mg Documented by: Sodium Chloride (Sodium Chloride Flush 0.9% 10 Ml Syringe) 10 ml IVP 0100,0900,1700 [facility] Last Admin: 09/06/21 10:44 Dose: 10 ml Documented by: Sodium Chloride (Sodium Chloride Flush 0.9% 10 Ml Syringe) 10 ml IVP PRN PRN PRN Reason: NEEDED PER PROVIDER ORDERS Last Admin: 09/05/21 21:30 Dose: 10 ml Documented by: Spironolactone (Spironolactone 25 Mg Tablet) 25 mg PO DAILY [facility] Last Admin: 09/06/21 10:40 Dose: 25 mg Documented by: Insulin NPH Human [NovoLIN N] 20 unit SQ TIDWM 03/20/20 Omeprazole 20 mg PO DAILY 03/20/20 Spironolactone 25 mg PO DAILY 03/20/20 Apixaban [Eliquis] 5 mg PO BID 09/02/21 Carbidopa/Levodopa 25/100 [Sinemet 25 mg/100 mg] 1 each PO 5XD 09/02/21 Losartan Potassium 12.5 mg PO DAILY 09/02/21 Metoprolol Succinate 100 mg PO BID 09/02/21 Rosuvastatin Calcium [Crestor] 5 mg PO DAILY 09/02/21 Objective - Vital Signs/Intake & Output Reviewed Vital Signs: Yes Vital Signs: Vital Signs x48h Pulse Resp 09/06/21 07:41 96 18 Intake & Output: Intake & Output 09/03/21 09/04/21 09/05/21 09/06/21 23:59 23:59 23:59 23:59 Intake Total 967.766 496.000 820 270 Output Total 1940 1363 1132 350 Balance -972.234 -867.000 -312 -80 - Objective General Appearance: positive: No acute distress, Alert Eyes Bilateral: positive: Normal inspection, Conjunctivae nml ENT: positive: ENT inspection nml, Other (Nasal cannula in place.) Neck: positive: Nml inspection Respiratory: positive: No respiratory distress, Other (Faint crackles bilaterally). negative: Wheezes, Rales Cardiovascular: positive: Irregularly irregular, Tachycardia. negative: Bradycardia, Systolic murmur Abdomen: positive: Non-tender, No distention. negative: Tenderness Skin: positive: Warm, Dry Extremities: positive: No pedal edema Neurologic/Psychiatric: negative: Disoriented to person, Disoriented to place - Lab Results Fish Bones: 09/06/21 05:35 09/06/21 05:35 Other Labs: Lab Results x24hrs 09/06/21 09/06/21 09/06/21 Range/Units 05:35 05:35 05:35 WBC 10.2 (4.8-10.8) x10^3/uL RBC 4.35 L (4.70-6.10) 10^6/uL Hgb 12.5 L (14.0-18.0) g/dL Hct 39.7 L (42.0-52.0) % MCV 91.3 (80.0-94.0) fL MCH 28.7 (27.0-31.0) pg MCHC 31.5 L (32.0-36.0) g/dL RDW 12.4 (12.0-15.0) % Plt Count 235 (130-450) 10^3/uL MPV 11.8 H (7.4-11.4) fL Neut # (Auto) Not Reportable Lymph # (Auto) Not Reportable Bradley # (Auto) Not Reportable Eos # (Auto) Not Reportable Baso # (Auto) Not Reportable Absolute Nucleated RBC Not Reportable Total Counted 100 Band Neuts % (Manual) 0 (0 - 10) % Abnorm Lymph % (Manual) 2 % Nucleated RBC % Not Reportable Neutrophils # (Manual) 6.9 H (1.5-6.6) 10^3/uL Lymphocytes # (Manual) 2.3 (1.5-3.5) 10^3/uL Monocytes # (Manual) 0.7 (0.0-1.0) 10^3/uL Eosinophils # (Manual) 0.2 (0-0.7) 10^3/uL Basophils # (Manual) 0.0 (0-0.1) 10^3/uL Differential Comment MANUAL DIFFERENTIAL WBC Morphology NORMAL APPEARANCE (NORMAL) Platelet Estimate NORMAL (130-450,000) (NORMAL) Platelet Morphology NORMAL APPEARANCE (NORMAL) RBC Morph Micro Appear NORMAL APPEARANCE (NORMAL) VBG pH 7.435 H (7.31-7.41) Ionized Calcium 1.05 L (1.15-1.33) mmol/L Sodium 136 (135-145) mmol/L Potassium 4.4 (3.5-5.0) mmol/L Chloride 98 L (101-111) mmol/L Carbon Dioxide 28 (21-32) mmol/L Anion Gap 10.0 (6-13) BUN 48 H (6-20) mg/dL Creatinine 1.3 H (0.6-1.2) mg/dL Estimated GFR (MDRD) 53 L (>89) Glucose 122 H (70-100) mg/dL Calcium 8.2 L (8.5-10.3) mg/dL Phosphorus 3.7 (2.5-4.6) mg/dL Magnesium 2.0 (1.7-2.8) mg/dL ABX Reporting Has patient been on IV antibiotics over the past 48 hours?: No Assessment/Plan - Problem List (1) Acute on chronic HFrEF (heart failure with reduced ejection fraction) Impression: He still remains hypoxic on 1 L of oxygen. His BNP is trending down but remains elevated. His lower extremity edema is no longer present. We will give another dose of IV Lasix and looks changing to oral Lasix tomorrow as I suspect he will be off of oxygen by then. We will continue his home beta-edvin and spironolactone. We will look to resume losartan tomorrow. Repeat echocardiogr am revealed his ejection fraction remains at 25%. 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 Continue with daily weights and strict I's and O's. (2) Atrial fibrillation with rapid ventricular response Impression: Controlled after resuming his home metoprolol. Rate still vary from the 90s to low 100s. We will continue his current dose of metoprolol and Eliquis. (3) JOLLY (acute kidney injury) Impression: He appears to have CKD at baseline but he did have acute kidney injury initially. His creatinine peaked at 1.6 and is now 1.3. It is unclear what his baseline is. We will look to resume his home losartan tomorrow. (4) CAD (coronary artery disease) Impression: He has a history of CABG in the past as well as a bioprosthetic aortic valve. Troponins were relatively flat and likely elevated due to demand ischemia due to the heart failure. We will continue his home Eliquis, metoprolol and statin. (5) Insulin dependent diabetes mellitus Impression: His blood glucose has been well controlled on the current insulin regimen. His A1c was greater than 11%. We will likely discharge him on this current regimen when he is able to go home. Continue with carb controlled diet.
[2021-09-06] MEDS: INSULIN ASPART 300 UNIT/3 ML PEN SUBQ SCH ×4 (09:55→21:17)
[2021-09-06] MEDS: METOPROLOL SUCCINATE 50 MG TABLET PO SCH ×2 (10:38→21:01)
[2021-09-06] MEDS: APIXABAN 5 MG TABLET PO SCH ×2 (10:40→21:00)
[2021-09-06] MEDS: FUROSEMIDE 40 MG TABLET PO SCH (10:40)
[2021-09-06] MEDS: ASPIRIN EC 81 MG TABLET PO SCH (10:40)
[2021-09-06] MEDS: SPIRONOLACTONE 25 MG TABLET PO SCH (10:40)
[2021-09-06] MEDS: INSULIN GLARGINE 300 UNIT/3 ML PEN SUBQ SCH ×2 (10:43→21:01)
[2021-09-06] MEDS: SODIUM CHLORIDE FLUSH 0.9% 10 ML SYRINGE IVP SCH ×3 (10:44→21:18)
[2021-09-06] MEDS: FUROSEMIDE 40 MG/4 ML VIAL IVP SCH (15:38)
[2021-09-06] MEDS ORDERED: IPRATROPIUM/ALBUTEROL 3 ML NEB INH PRN (17:25)
[2021-09-06] MEDS: CARBIDOPA/LEVODOPA 25 MG/100 MG TABLET PO SCH ×2 (17:48→21:00)
[2021-09-06] MEDS: PRAVASTATIN 10 MG TABLET PO SCH (21:00)
[2021-09-06] MEDS: MIN OIL/DIMETHICON/COCONUT OIL 92 GM TUBE TOP PRN (21:07)
[2021-09-07 04:54] LABS: BASOPHILS % (AUTO) 0.4 %; EOSINOPHILS % (AUTO) 3.8 %; HCT - HEMATOCRIT 40.1 % (42.0-52.0); HGB - HEMOGLOBIN 12.8 g/dL (14.0-18.0); LYMPHOCYTES % (AUTO) 31.9 %; MEAN CORPUSCULAR HEMOGLOBIN 29.3 pg (27.0-31.0); MEAN CORPUSCULAR HGB CONC 31.9 g/dL (32.0-36.0); MEAN CORPUSCULAR VOLUME 91.8 fL (80.0-94.0); MEAN PLATELET VOLUME 11.4 fL (7.4-11.4); PLT - PLATELET COUNT 247 10^3/uL (130-450); RED BLOOD COUNT 4.37 10^6/uL (4.70-6.10); RED CELL DISTRIBUTION WIDTH 12.4 % (12.0-15.0)
[2021-09-07 05:00] LABS: BAND NEUTROPHILS % (MANUAL) 0 %
[2021-09-07 05:04] LABS: CALCIUM 8.2 mg/dL (8.5-10.3); CREATININE 1.1 mg/dL (0.6-1.2); POTASSIUM 4.1 mmol/L (3.5-5.0)
[2021-09-07 05:11] LABS: ABNORMAL LYMPHS % (MANUAL) 2 %; EOSINOPHILS # (MANUAL) 0.1 10^3/uL (0-0.7); LYMPHOCYTES # (MANUAL) 3.2 10^3/uL (1.5-3.5); LYMPHOCYTES % (MANUAL) 38 %; MONOCYTES # (MANUAL) 0.6 10^3/uL (0.0-1.0); NEUTROPHILS # (MANUAL) 4.1 10^3/uL (1.5-6.6)
[2021-09-07 05:12] LABS: DIFFERENTIAL COMMENT MANUAL DIFFERENTIAL; PLATELET ESTIMATE, MANUAL NORMAL (130-450,000) (NORMAL); PLATELET MORPHOLOGY NORMAL APPEARANCE (NORMAL); RBC MORPHOLOGY (MULTIPLE) NORMAL APPEARANCE (NORMAL); WBC MORPHOLOGY (MULTIPLE) NORMAL APPEARANCE (NORMAL)
[2021-09-07] MEDS: PANTOPRAZOLE 40 MG TABLET PO SCH (06:26)
[2021-09-07] MEDS: CARBIDOPA/LEVODOPA 25 MG/100 MG TABLET PO SCH ×5 (06:26→21:33)
--- NOTE | 2021-09-07 07:33 | PROVIDER PROGRESS NOTE ---
Subjective - Prog Note Date Prog Note Date: 09/07/21 - Subjective Subjective: He continues to feel improved each day. Denies feeling short of breath at rest although still is little dyspneic with activity. Current Medications - Current Medications Current Medications: Active Medications Acetaminophen (Acetaminophen 325 Mg Tablet) 650 mg PO Q4HR PRN PRN Reason: Pain or Fever > 38C (100.4F) Albuterol/Ipratropium (Ipratropium/Albuterol 3 Ml Neb) 3 ml INH RTQID PRN PRN Reason: Dyspnea Apixaban (Apixaban 5 Mg Tablet) 5 mg PO BID [facility] Last Admin: 09/07/21 08:40 Dose: 5 mg Documented by: Aspirin (Aspirin Ec 81 Mg Tablet) 81 mg PO DAILY [facility] Last Admin: 09/07/21 08:40 Dose: 81 mg Documented by: Carbidopa/Levodopa (Carbidopa/Levodopa 25 Mg/100 Mg Tablet) 1 tab PO 5XD [facility] Last Admin: 09/07/21 10:33 Dose: 1 tab Documented by: Furosemide (Furosemide 40 Mg Tablet) 40 mg PO DAILY [facility] Guaifenesin (Guaifenesin/Dextromethorphan 10 Ml Udc) 10 ml PO Q6HR PRN PRN Reason: Cough Last Admin: 09/06/21 21:18 Dose: 10 ml Documented by: Insulin Aspart (Insulin Aspart 300 Unit/3 Ml Pen) 3 - 11 unit SUBQ 0800,1200,1700,2100 [facility]; Protocol Last Admin: 09/07/21 08:10 Dose: Not Given Documented by: Insulin Human NPH (Insulin Nph Human 300 Unit/3 Ml Vial) 20 unit SUBQ TIDWM [facility] Last Admin: 09/07/21 08:52 Dose: 20 unit Documented by: Losartan Potassium (Losartan 50 Mg Tablet) 12.5 mg PO DAILY [facility] Last Admin: 09/07/21 08:37 Dose: 12.5 mg Documented by: Metoprolol Succinate (Metoprolol Succinate 50 Mg Tablet) 100 mg PO BID [facility] Last Admin: 09/07/21 08:38 Dose: 100 mg Documented by: Mineral Oil (Min Oil/Dimethicon/Coconut Oil 92 Gm Tube) 1 applic TOP PRN PRN PRN Reason: Skin Care Last Admin: 09/06/21 21:07 Dose: 1 applic Documented by: Ondansetron HCl (Ondansetron 4 Mg/2 Ml Vial) 4 mg IVP Q6HR PRN PRN Reason: Nausea / Vomiting Pantoprazole Sodium (Pantoprazole 40 Mg Tablet) 40 mg PO QDAC [facility] Last Admin: 09/07/21 06:26 Dose: 40 mg Documented by: Pravastatin Sodium (Pravastatin 10 Mg Tablet) 10 mg PO QPM [facility] Last Admin: 09/06/21 21:00 Dose: 10 mg Documented by: Sodium Chloride (Sodium Chloride Flush 0.9% 10 Ml Syringe) 10 ml IVP 0100,0900,1700 [facility] Last Admin: 09/07/21 08:40 Dose: 10 ml Documented by: Sodium Chloride (Sodium Chloride Flush 0.9% 10 Ml Syringe) 10 ml IVP PRN PRN PRN Reason: NEEDED PER PROVIDER ORDERS Last Admin: 09/05/21 21:30 Dose: 10 ml Documented by: Spironolactone (Spironolactone 25 Mg Tablet) 25 mg PO DAILY [facility] Last Admin: 09/07/21 08:40 Dose: 25 mg Documented by: Insulin NPH Human [NovoLIN N] 20 unit SQ TIDWM 03/20/20 Omeprazole 20 mg PO DAILY 03/20/20 Spironolactone 25 mg PO DAILY 03/20/20 Apixaban [Eliquis] 5 mg PO BID 09/02/21 Carbidopa/Levodopa 25/100 [Sinemet 25 mg/100 mg] 1 each PO 5XD 09/02/21 Losartan Potassium 12.5 mg PO DAILY 09/02/21 Metoprolol Succinate 100 mg PO BID 09/02/21 Rosuvastatin Calcium [Crestor] 5 mg PO DAILY 09/02/21 Objective - Vital Signs/Intake & Output Reviewed Vital Signs: Yes Vital Signs: Vital Signs x48h Temp Pulse Resp BP Pulse Ox 09/07/21 00:00 36.6 C 87 18 107/79 92 Intake & Output: Intake & Output 09/04/21 09/05/21 09/06/21 09/07/21 23:59 23:59 23:59 23:59 Intake Total 496.000 820 620 Output Total 1363 1132 1550 800 Balance -867.000 -312 -930 -800 - Objective General Appearance: positive: No acute distress, Alert Eyes Bilateral: positive: Normal inspection ENT: positive: ENT inspection nml Neck: positive: Nml inspection Respiratory: positive: No respiratory distress, Other (Diminished in bases.) Cardiovascular: positive: Irregularly irregular. negative: Tachycardia Skin: positive: Warm, Dry Extremities: positive: No pedal edema Neurologic/Psychiatric: negative: Disoriented to person, Disoriented to place - Lab Results Fish Bones: 09/07/21 04:43 09/07/21 04:43 Other Labs: Lab Results x24hrs 09/07/21 09/07/21 09/06/21 Range/Units 04:43 04:43 05:35 WBC 8.0 (4.8-10.8) x10^3/uL RBC 4.37 L (4.70-6.10) 10^6/uL Hgb 12.8 L (14.0-18.0) g/dL Hct 40.1 L (42.0-52.0) % MCV 91.8 (80.0-94.0) fL MCH 29.3 (27.0-31.0) pg MCHC 31.9 L (32.0-36.0) g/dL RDW 12.4 (12.0-15.0) % Plt Count 247 (130-450) 10^3/uL MPV 11.4 (7.4-11.4) fL Neut # (Auto) Not Reportable Lymph # (Auto) Not Reportable [place] # (Auto) Not Reportable Eos # (Auto) Not Reportable Baso # (Auto) Not Reportable Absolute Nucleated RBC Not Reportable Total Counted 100 Band Neuts % (Manual) 0 (0 - 10) % Abnorm Lymph % (Manual) 2 % Nucleated RBC % Not Reportable Neutrophils # (Manual) 4.1 (1.5-6.6) 10^3/uL Lymphocytes # (Manual) 3.2 (1.5-3.5) 10^3/uL Monocytes # (Manual) 0.6 (0.0-1.0) 10^3/uL Eosinophils # (Manual) 0.1 (0-0.7) 10^3/uL Basophils # (Manual) 0.0 (0-0.1) 10^3/uL Differential Comment MANUAL DIFFERENTIAL WBC Morphology NORMAL APPEARANCE (NORMAL) Platelet Estimate NORMAL (130-450,000) (NORMAL) Platelet Morphology NORMAL APPEARANCE (NORMAL) RBC Morph Micro Appear NORMAL APPEARANCE (NORMAL) Sodium 137 (135-145) mmol/L Potassium 4.1 (3.5-5.0) mmol/L Chloride 98 L (101-111) mmol/L Carbon Dioxide 27 (21-32) mmol/L Anion Gap 12.0 (6-13) BUN 43 H (6-20) mg/dL Creatinine 1.1 (0.6-1.2) mg/dL Estimated GFR (MDRD) 64 L (>89) Glucose 61 L (70-100) mg/dL Calcium 8.2 L (8.5-10.3) mg/dL B-Natriuretic Peptide 685 H (5-100) pg/mL ABX Reporting Has patient been on IV antibiotics over the past 48 hours?: No Assessment/Plan - Problem List (1) Acute on chronic HFrEF (heart failure with reduced ejection fraction) Impression: Improved. He is now on room air and has had much improvement in his dyspnea. We will switch him to oral Lasix and if he does well over next 24 hours and he can be discharged to a longterm facility. We will continue his home carvedilol and spironolactone. We will also resume losartan today. (2) Atrial fibrillation with rapid ventricular response Impression: Rate is better controlled on his home metoprolol. We will continue to 100 mg twice a day. Continue Eliquis. (3) JOLLY (acute kidney injury) Impression: Resolved. This was likely prerenal in injury and due to cardiorenal syndrome. He responded well to diuresis and his creatinine is now 1.1 which is close to his baseline of 1.0. We have resumed his home losartan and switch him to oral Lasix. Continue home spironolactone. (4) Insulin dependent diabetes mellitus Impression: His blood glucose was previously well controlled but he was hypoglycemic this morning with a blood glucose of 61 on morning labs. His A1c was greater than 11%. We will resume his home insulin regimen and adjust as over next 24 hours in hopes we can get him on an improved regimen since clearly the Lantus twice daily was too much for him but at the same time, his home insulin regimen is not sufficient given his elevated A1c. (5) CAD (coronary artery disease) Impression: He has a history of CABG in the past as well as a bioprosthetic aortic valve. Troponins were relatively flat and likely elevated due to demand ischemia due to the heart failure. We will continue his home Eliquis, metoprolol and statin. (6) Parkinson disease Impression: Stable. Continue home Sinemet.
[2021-09-07] MEDS: INSULIN ASPART 300 UNIT/3 ML PEN SUBQ SCH ×4 (08:10→21:34)
[2021-09-07] MEDS: LOSARTAN 50 MG TABLET PO SCH (08:37)
[2021-09-07] MEDS: METOPROLOL SUCCINATE 50 MG TABLET PO SCH ×2 (08:38→21:33)
[2021-09-07] MEDS: APIXABAN 5 MG TABLET PO SCH ×2 (08:40→21:33)
[2021-09-07] MEDS: SODIUM CHLORIDE FLUSH 0.9% 10 ML SYRINGE IVP SCH ×2 (08:40→17:10)
[2021-09-07] MEDS: ASPIRIN EC 81 MG TABLET PO SCH (08:40)
[2021-09-07] MEDS: SPIRONOLACTONE 25 MG TABLET PO SCH (08:40)
[2021-09-07] MEDS: FUROSEMIDE 40 MG/4 ML VIAL IVP SCH (08:40)
[2021-09-07] MEDS: INSULIN NPH HUMAN 300 UNIT/3 ML VIAL SUBQ SCH ×3 (08:52→17:09)
[2021-09-07] MEDS: PRAVASTATIN 10 MG TABLET PO SCH (21:33)
[2021-09-08] MEDS: SODIUM CHLORIDE FLUSH 0.9% 10 ML SYRINGE IVP SCH ×3 (00:31→17:26)
[2021-09-08 05:31] LABS: BASOPHILS % (AUTO) 0.5 %; EOSINOPHILS # (AUTO) 0.2 10^3/uL (0.0-0.7); EOSINOPHILS % (AUTO) 2.2 %; HCT - HEMATOCRIT 41.3 % (42.0-52.0); HGB - HEMOGLOBIN 12.9 g/dL (14.0-18.0); LYMPHOCYTES # (AUTO) 2.3 10^3/uL (1.5-3.5); LYMPHOCYTES % (AUTO) 28.3 %; MEAN CORPUSCULAR HEMOGLOBIN 28.3 pg (27.0-31.0); MEAN CORPUSCULAR HGB CONC 31.2 g/dL (32.0-36.0); MEAN CORPUSCULAR VOLUME 90.6 fL (80.0-94.0); MEAN PLATELET VOLUME 11.3 fL (7.4-11.4); MONOCYTES # (AUTO) 0.8 10^3/uL (0.0-1.0); MONOCYTES % (AUTO) 9.5 %; NEUTROPHILS # (AUTO) 4.7 10^3/uL (1.5-6.6); PLT - PLATELET COUNT 282 10^3/uL (130-450); RED BLOOD COUNT 4.56 10^6/uL (4.70-6.10); RED CELL DISTRIBUTION WIDTH 12.4 % (12.0-15.0); WHITE BLOOD COUNT 8.1 x10^3/uL (4.8-10.8)
[2021-09-08 06:08] LABS: CALCIUM 8.1 mg/dL (8.5-10.3); CREATININE 1.5 mg/dL (0.6-1.2); POTASSIUM 4.1 mmol/L (3.5-5.0)
[2021-09-08] MEDS: PANTOPRAZOLE 40 MG TABLET PO SCH (06:21)
[2021-09-08] MEDS: CARBIDOPA/LEVODOPA 25 MG/100 MG TABLET PO SCH ×5 (06:21→21:24)
[2021-09-08] MEDS: INSULIN ASPART 300 UNIT/3 ML PEN SUBQ SCH ×7 (07:58→21:02)
[2021-09-08] MEDS: LOSARTAN 50 MG TABLET PO SCH (08:15)
[2021-09-08] MEDS: APIXABAN 5 MG TABLET PO SCH ×2 (08:15→21:23)
[2021-09-08] MEDS: ASPIRIN EC 81 MG TABLET PO SCH (08:15)
[2021-09-08] MEDS: SPIRONOLACTONE 25 MG TABLET PO SCH (08:16)
[2021-09-08] MEDS: FUROSEMIDE 40 MG TABLET PO SCH (08:16)
[2021-09-08] MEDS: METOPROLOL SUCCINATE 50 MG TABLET PO SCH ×2 (08:16→21:23)
--- NOTE | 2021-09-08 10:22 | PROVIDER PROGRESS NOTE ---
Subjective - Prog Note Date Prog Note Date: 09/08/21 - Subjective Subjective: He reports he is feeling tired overall. He does not feel short of breath any longer. He is looking forward to leaving the hospital. Current Medications - Current Medications Current Medications: Active Medications Acetaminophen (Acetaminophen 325 Mg Tablet) 650 mg PO Q4HR PRN PRN Reason: Pain or Fever > 38C (100.4F) Albuterol/Ipratropium (Ipratropium/Albuterol 3 Ml Neb) 3 ml INH RTQID PRN PRN Reason: Dyspnea Apixaban (Apixaban 5 Mg Tablet) 5 mg PO BID [facility] Last Admin: 09/08/21 08:15 Dose: 5 mg Documented by: Aspirin (Aspirin Ec 81 Mg Tablet) 81 mg PO DAILY [facility] Last Admin: 09/08/21 08:15 Dose: 81 mg Documented by: Carbidopa/Levodopa (Carbidopa/Levodopa 25 Mg/100 Mg Tablet) 1 tab PO 5XD [facility] Last Admin: 09/08/21 10:05 Dose: 1 tab Documented by: Furosemide (Furosemide 40 Mg Tablet) 40 mg PO DAILY [facility] Last Admin: 09/08/21 08:16 Dose: 40 mg Documented by: Guaifenesin (Guaifenesin/Dextromethorphan 10 Ml Udc) 10 ml PO Q6HR PRN PRN Reason: Cough Last Admin: 09/06/21 21:18 Dose: 10 ml Documented by: Insulin Aspart (Insulin Aspart 300 Unit/3 Ml Pen) 3 - 11 unit SUBQ 0800, 1200,1700,2100 [facility]; Protocol Last Admin: 09/08/21 07:58 Dose: Not Given Documented by: Insulin Aspart (Insulin Aspart 300 Unit/3 Ml Pen) 3 unit SUBQ TIDWM [facility] Last Admin: 09/08/21 07:58 Dose: 3 unit Documented by: Insulin Glargine (Insulin Glargine 300 Unit/3 Ml Pen) 10 unit SUBQ QPM [facility] Losartan Potassium (Losartan 50 Mg Tablet) 12.5 mg PO DAILY [facility] Last Admin: 09/08/21 08:15 Dose: 12.5 mg Documented by: Metoprolol Succinate (Metoprolol Succinate 50 Mg Tablet) 100 mg PO BID [facility] Last Admin: 09/08/21 08:16 Dose: 100 mg Documented by: Mineral Oil (Min Oil/Dimethicon/Coconut Oil 92 Gm Tube) 1 applic TOP PRN PRN PRN Reason: Skin Care Last Admin: 09/06/21 21:07 Dose: 1 applic Documented by: Ondansetron HCl (Ondansetron 4 Mg/2 Ml Vial) 4 mg IVP Q6HR PRN PRN Reason: Nausea / Vomiting Pantoprazole Sodium (Pantoprazole 40 Mg Tablet) 40 mg PO QDAC [facility] Last Admin: 09/08/21 06:21 Dose: 40 mg Documented by: Pravastatin Sodium (Pravastatin 10 Mg Tablet) 10 mg PO QPM [facility] Last Admin: 09/07/21 21:33 Dose: 10 mg Documented by: Sodium Chloride (Sodium Chloride Flush 0.9% 10 Ml Syringe) 10 ml IVP 0100,0900,1700 [facility] Last Admin: 09/08/21 08:16 Dose: 10 ml Documented by: Sodium Chloride (Sodium Chloride Flush 0.9% 10 Ml Syringe) 10 ml IVP PRN PRN PRN Reason: NEEDED PER PROVIDER ORDERS Last Admin: 09/05/21 21:30 Dose: 10 ml Documented by: Spironolactone (Spironolactone 25 Mg Tablet) 25 mg PO DAILY [facility] Last Admin: 09/08/21 08:16 Dose: 25 mg Documented by: Insulin NPH Human [NovoLIN N] 20 unit SQ TIDWM 03/20/20 Omeprazole 20 mg PO DAILY 03/20/20 Spironolactone 25 mg PO DAILY 03/20/20 Apixaban [Eliquis] 5 mg PO BID 09/02/21 Carbidopa/Levodopa 25/100 [Sinemet 25 mg/100 mg] 1 each PO 5XD 09/02/21 Losartan Potassium 12.5 mg PO DAILY 09/02/21 Metoprolol Succinate 100 mg PO BID 09/02/21 Rosuvastatin Calcium [Crestor] 5 mg PO DAILY 09/02/21 Objective - Vital Signs/Intake & Output Reviewed Vital Signs: Yes Vital Signs: Vital Signs x48h Temp Pulse Resp BP Pulse Ox 09/08/21 07:27 36.5 C 92 20 117/92 H 93 Intake & Output: Intake & Output 09/05/21 09/06/21 09/07/21 09/08/21 23:59 23:59 23:59 23:59 Intake Total 022 364 0362 315 Output Total 1132 7390 1353 [facility] -312 -930 -60 315 - Objective General Appearance: positive: No acute distress, Alert Eyes Bilateral: positive: Normal inspection, Conjunctivae nml ENT: positive: ENT inspection nml Neck: positive: Nml inspection Respiratory: positive: No respiratory distress, Other (Faint crackles. Diminished in bases.) Cardiovascular: positive: Irregularly irregular. negative: Tachycardia Skin: positive: Warm Extremities: positive: No pedal edema Neurologic/Psychiatric: negative: Disoriented to person, Disoriented to place - Lab Results Fish Bones: 09/09/21 05:26 09/09/21 05:26 Other Labs: Lab Results x24hrs 09/08/21 09/08/21 Range/Units 05:04 05:04 WBC 8.1 (4.8-10.8) x10^3/uL RBC 4.56 L (4.70-6.10) 10^6/uL Hgb 12.9 L (14.0-18.0) g/dL Hct 41.3 L (42.0-52.0) % MCV 90.6 (80.0-94.0) fL MCH 28.3 (27.0-31.0) pg MCHC 31.2 L (32.0-36.0) g/dL RDW 12.4 (12.0-15.0) % Plt Count 282 (130-450) 10^3/uL MPV 11.3 (7.4-11.4) fL Neut # (Auto) 4.7 (1.5-6.6) 10^3/uL Lymph # (Auto) 2.3 (1.5-3.5) 10^3/uL [place] # (Auto) 0.8 (0.0-1.0) 10^3/uL Eos # (Auto) 0.2 (0.0-0.7) 10^3/uL Baso # (Auto) 0.0 (0.0-0.1) 10^3/uL Absolute Nucleated RBC 0.00 x10^3/uL Nucleated RBC % 0.0 /100WBC Sodium 137 (135-145) mmol/L Potassium 4.1 (3.5-5.0) mmol/L Chloride 98 L (101-111) mmol/L Carbon Dioxide 27 (21-32) mmol/L Anion Gap 12.0 (6-13) BUN 57 H (6-20) mg/dL Creatinine 1.5 H (0.6-1.2) mg/dL Estimated GFR (MDRD) 45 L (>89) Glucose 55 L* (70-100) mg/dL Calcium 8.1 L (8.5-10.3) mg/dL Assessment/Plan - Problem List (1) Acute on chronic HFrEF (heart failure with reduced ejection fraction) Impression: This appears to be resolved now. He is saturating well on room air and his dyspnea is resolved. We will continue him on oral Lasix and his home therapy including carvedilol, spironolactone, losartan. The plan is for him to be discharged to a SNF tomorrow. (2) Atrial fibrillation with rapid ventricular response Impression: His rates are stable in the 90s. We will continue metoprolol and Eliquis. Based off of his renal function, we will need to consider decreasing the dose of Eliquis to 2.5 mg twice daily as his creatinine is around 1.5 and is older than 80. (3) Chronic kidney disease, stage 3 Impression: Suspect likely has chronic kidney disease secondary to the diabetes. His creatinine was 1.1 yesterday and today it is 1.5. His baseline appears to be around 1.5. We did resume losartan yesterday which may have increased his creatinine. We will repeat labs in the morning but if his renal function continues to decline that he may have acute kidney injury due to cardiorenal syndrome and may need further diuresis despite his improvement in his respiratory status. Continue to avoid nephrotoxins. (4) Insulin dependent diabetes mellitus Impression: He was hypoglycemic again this morning after we changed his regimen yesterday to his home regimen. His A1c was greater than 11%. We will discontinue his home insulin regimen and place him on Lantus 10 units in the evening and 3 units of NovoLog with meals. We will adjust this over next 24 hours but I am concerned that he has had 2 hypoglycemic episodes and review of prior records reveal he has had ER visits in the past due to recurrent hypoglycemia. (5) CAD (coronary artery disease) Impression: Stable. Continue aspirin, Eliquis, metoprolol and statin. (6) Parkinson disease Impression: Stable. Continue sinemet.
[2021-09-08 18:39] LABS: B. PARAPERTUSSIS- RESP PCR PAN NOT DETECTED; B. PERTUSSIS- RESP PCR PANEL NOT DETECTED; CORONAVIRUS 229E-RESP PCR NOT DETECTED; CORONAVIRUS HKU1-RESP PCR NOT DETECTED; CORONAVIRUS NL63-RESP PCR NOT DETECTED; CORONAVIRUS OC43-RESP PCR NOT DETECTED; HUMAN METAPNEUMOVIRUS NOT DETECTED; INFLUENZA A- RESP PCR PANEL NOT DETECTED; INFLUENZA B - RESP PCR PANEL NOT DETECTED; PARAINFLUENZA VIRUS 1 NOT DETECTED; PARAINFLUENZA VIRUS 2 NOT DETECTED; PARAINFLUENZA VIRUS 3 NOT DETECTED; PARAINFLUENZA VIRUS 4 NOT DETECTED; RHINOVIRUS/ENTEROVIRUS NOT DETECTED; RSV- RESP PCR PANEL DETECTED; SARS-CoV-2 -RESP PCR PANEL NOT DETECTED
[2021-09-08 18:40] LABS: C. PNEUMONIAE- RESP PCR PANEL NOT DETECTED; M. PNEUMONIAE- RESP PCR PANEL NOT DETECTED
[2021-09-08] MEDS ORDERED: INSULIN GLARGINE 300 UNIT/3 ML PEN SUBQ SCH (21:00)
[2021-09-08] MEDS: PRAVASTATIN 10 MG TABLET PO SCH (21:24)
[2021-09-09] MEDS: SODIUM CHLORIDE FLUSH 0.9% 10 ML SYRINGE IVP SCH ×2 (00:50→08:48)
[2021-09-09] MEDS: CARBIDOPA/LEVODOPA 25 MG/100 MG TABLET PO SCH ×2 (05:29→09:30)
[2021-09-09] MEDS: PANTOPRAZOLE 40 MG TABLET PO SCH (05:29)
[2021-09-09 06:18] LABS: BASOPHILS # (AUTO) 0.1 10^3/uL (0.0-0.1); BASOPHILS % (AUTO) 0.5 %; EOSINOPHILS # (AUTO) 0.3 10^3/uL (0.0-0.7); EOSINOPHILS % (AUTO) 3.1 %; HCT - HEMATOCRIT 41.5 % (42.0-52.0); HGB - HEMOGLOBIN 13.1 g/dL (14.0-18.0); LYMPHOCYTES # (AUTO) 2.5 10^3/uL (1.5-3.5); LYMPHOCYTES % (AUTO) 25.5 %; MEAN CORPUSCULAR HEMOGLOBIN 28.7 pg (27.0-31.0); MEAN CORPUSCULAR HGB CONC 31.6 g/dL (32.0-36.0); MEAN PLATELET VOLUME 11.4 fL (7.4-11.4); MONOCYTES % (AUTO) 10.5 %; NEUTROPHILS # (AUTO) 5.8 10^3/uL (1.5-6.6); NEUTROPHILS % (AUTO) 58.8 %; PLT - PLATELET COUNT 336 10^3/uL (130-450); RED BLOOD COUNT 4.56 10^6/uL (4.70-6.10); RED CELL DISTRIBUTION WIDTH 12.7 % (12.0-15.0); WHITE BLOOD COUNT 9.8 x10^3/uL (4.8-10.8)
[2021-09-09 06:28] LABS: CALCIUM 7.9 mg/dL (8.5-10.3); CREATININE 1.5 mg/dL (0.6-1.2); POTASSIUM 4.5 mmol/L (3.5-5.0)
--- NOTE | 2021-09-09 07:27 | Discharge Plan ---
"Discharge Plan for SNF / [facility] - Discharge Plan And Transition Orders Problem Reviewed?: Yes Disposition: 03 SNF DC/Xfer Condition: Stable Allergies and Adverse Reactions: Allergies Allergy/AdvReac Type Severity Reaction Status Date / Time atorvastatin [From Lipitor] Allergy Unknown Verified 09/02/21 15:29 Health Concerns: The patient was admitted for acute on chronic systolic heart failure. He was admitted to intensive care unit and treated with IV Lasix, nitroglycerin. He initially required BiPAP but was able to be weaned down to nasal cannula. A repeat echocardiogram showed an ejection fraction of around 25%. He remained on IV Lasix for a few days before transitioning to oral Lasix. His home medications were resumed. His creatinine has remained stable but his BUN has been slowly rising. He is now on room air and stable for discharge to SNF for rehab. He also had hypoglycemia during this hospitalization. His insulin dose was adjusted and he is now on 10 units of Lantus in the evening and 3 units of NovoLog with meals. He was previously on 20 units of Novolin 3 times a day but his A1c was poorly controlled at greater than 11%. Plan of Treatment: He will begin taking Lasix 40 mg once a day. He will continue losartan, metoprolol, spironolactone, Eliquis. He will begin taking 10 units of Lantus in the evening and 3 units of NovoLog with meals. He will need a BMP checked in 3 to 5 days to ensure his renal function is stable. Care Goals: The goal is to prevent further exacerbations of his heart failure. - SNF / [facility] Transition Orders Admit to (Facility): [facility] Discharge Diagnosis: Acute on chronic HFrEF A. fib with RVR CKD, stage III Insulin-dependent diabetes mellitus Coronary artery disease Parkinson Medicare Certification Statement: I certify that [facility] is medically necessary on a continuing basis for any of the conditions for which she/he is receiving care during hospitalization. Notify PCP of admission and forward orders to primary provider for signature. Weight on admission and: Daily, Monthly Call PCP immediately if weight increases by: 1000 g Other Notification Orders: Call PCP immediately if patient develops dyspnea, chest pain/tightness or edema. Additional Bowel Program Orders: If no BM after 2 days, nurse may give M.O.M. 30ml PO PRN and/or ducolax Supp 1 TN and/or MITUL 250mg P.O., and/or senna 1-2 tabs PO. On day 3 nurse may give repeat above order until residents constipation is resolved. Lab Tests or X-ray Orders: He will need a BMP checked in 3 to 5 days to ensure his renal function is stable. Medication Orders: PLEASE REFER TO THE DISCHARGE MEDICATION LIST. Insulin Orders?: Yes - Medications New Prescriptions: Insulin Glargine [Lantus Solostar] 10 unit SUBQ QPM #1 each Furosemide [Lasix] 40 mg PO DAILY #30 tablet Insulin Aspart [NovoLOG] 3 unit SUBQ TIDWM #1 each - Diet Type: No added salt Texture: Regular Liquids: Thin - Therapies | Activity Therapy: Evaluation | Treat if indicated: PT Rehabilitation Potential: Maximize functional status Activity: Activity as Tolerated Follow Up: He will need follow-up with his primary care physician in 1 week. 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 BMP should be checked in 3 to 5 days. His Eliquis dose may need to be reduced to 2.5 mg twice daily if his creatinine remains above 1.5. He would also benefit from follow-up with palliative care and heart failure classes."
[2021-09-09] MEDS: INSULIN ASPART 300 UNIT/3 ML PEN SUBQ SCH ×4 (08:05→12:07)
--- NOTE | 2021-09-09 08:06 | DISCHARGE SUMMARY ---
"Discharge Summary Admit Date: 09/02/21 Discharge Date: 09/09/21 Discharging Provider: Jarrell Martinez Primary Care Provider: Wilmer Oviedo Code Status: Do Not Attempt Resuscitation Condition at Discharge: Stable Discharge Disposition: 03 SNF DC/Xfer Discharge [facility] Name: [facility] - DIAGNOSES Admission Diagnoses: Atrial fibrillation with rapid ventricular response CHF exacerbation Hyperkalemia CAD Diabetes mellitus Parkinson disease BPH URI JOLLY Discharge Diagnoses with Status of Each Condition: Acute on chronic HFrEF A. fib with RVR CKD, stage III Insulin-dependent diabetes mellitus Coronary artery disease Parkinson - HPI History of Present Illness: H&P per Dr. Corey: Patient is an 80-year-old male with medical history significant for coronary artery disease status post CABG, A. fib on Eliquis, CHF, hypertension, hyperlipidemia, lymphedema, diabetes on insulin, BPH and Parkinson's who was brought to the ED via EMS with dyspnea. It is reported that the patient has been fighting a cold since 08/31/2021. He slept most of the day yesterday. Today he woke up significantly dyspneic and had a rattling sound in his chest. His dyspnea was severe such that he declined food. His family became concerned and called EMS. Upon arrival EMS immediately placed him on a CPAP machine. Work-up in the emergency room included BNP which was 930, troponin 42. Patient was also noted to have a potassium level of 6.3. He also tested positive for RSV. Finally he was in atrial fibrillation with rapid ventricular rhythm. Heart rate was in the 120s. Patient was placed on the BiPAP in the ED, given Lasix, insulin, dextrose 50 and also placed on a diltiazem drip. He was presented for admission for further treatment. At bedside patient is significantly dyspneic with crackles on auscultation and very exhausted. He was unable to provide history. This history above was obtained from his [id number]. - CONSULTS | PROCEDURES Consultations: PT - HOSPITAL COURSE Hospital Course: The patient was admitted for acute on chronic systolic heart failure. He was admitted to intensive care unit and treated with IV Lasix, nitroglycerin. He initially required BiPAP but was able to be weaned down to nasal cannula. A repeat echocardiogram showed an ejection fraction of around 25%. He remained on IV Lasix for a few days before transitioning to oral Lasix. His home medicat ions were resumed. His creatinine has remained stable but his BUN has been slowly rising. He is now on room air and stable for discharge to SNF for rehab. He also had hypoglycemia during this hospitalization. His insulin dose was adjusted and he is now on 10 units of Lantus in the evening and 3 units of NovoLog with meals. He was previously on 20 units of Novolin 3 times a day but his A1c was poorly controlled at greater than 11%. - ALLERGIES Allergies/Adverse Reactions: Allergies Allergy/AdvReac Type Severity Reaction Status Date / Time atorvastatin [From Lipitor] Allergy Unknown Verified 09/02/21 15:29 - MEDICATIONS Home Medications: Ambulatory Orders Medication Instructions Recorded Confirmed Omeprazole 20 mg PO DAILY 03/20/20 09/05/21 Spironolactone 25 mg PO DAILY 03/20/20 09/02/21 Apixaban [Eliquis] 5 mg PO BID 09/02/21 09/02/21 Carbidopa/Levodopa 25/100 [Sinemet 1 each PO 5XD 09/02/21 09/04/21 25 mg/100 mg] Losartan Potassium 12.5 mg PO DAILY 09/02/21 09/02/21 Metoprolol Succinate 100 mg PO BID 09/02/21 09/02/21 Rosuvastatin Calcium [Crestor] 5 mg PO DAILY 09/02/21 09/04/21 Furosemide [Lasix] 40 mg PO DAILY #30 tablet 09/09/21 Insulin Aspart [NovoLOG] 3 unit SUBQ TIDWM #1 each 09/09/21 Insulin Glargine [Lantus Solostar] 10 unit SUBQ QPM #1 each 09/09/21 - PHYSICAL EXAM AT DISCHARGE General Appearance: positive: No acute distress, Alert Eyes Bilateral: positive: Normal inspection, Conjunctivae nml ENT: positive: ENT inspection nml Neck: positive: Nml inspection Respiratory: positive: No respiratory distress, Other (Diminished in bases.) Cardiovascular: positive: Irregularly irregular. negative: Tachycardia Abdomen: positive: Non-tender, No distention. negative: Tenderness Skin: positive: Warm, Dry Extremities: positive: No pedal edema Neurologic/Psychiatric: negative: Disoriented to person, Disoriented to place Physical Exam Other/Comments: Vital Signs - 24 hr 09/08/21 09/09/21 09/09/21 21:05 01:06 08:00 Temperature 36.3 C L 36.5 C Heart Rate [ 82 91 123 H Brachial] Respiratory 19 18 Rate Blood Pressure 103/70 101/59 L 111/80 [Right Brachial artery] O2 Saturation 95 94 09/09/21 09:00 Temperature Heart Rate [ 87 Brachial] Respiratory Rate Blood Pressure [Right Brachial artery] O2 Saturation Oxygen O2 Source Room air - LABS Result Diagrams: 09/09/21 05:26 09/09/21 05:26 - DIAGNOSTIC IMAGING Diagnostic Imaging Results: Final report reviewed - FOLLOW UP Follow Up: He will need follow-up with his primary care physician in 1 week. 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 BMP should be checked in 3 to 5 days. His Eliquis dose may need to be reduced to 2.5 mg twice daily if his creatinine remains above 1.5. He would also benefit from follow-up with palliative care and heart failure classes. - TIME SPENT Time Spent in Discharge (Minutes): 34"
[2021-09-09 08:07] VITALS: BP 111/80
[2021-09-09] MEDS: LOSARTAN 50 MG TABLET PO SCH (08:48)
[2021-09-09] MEDS: FUROSEMIDE 40 MG TABLET PO SCH (08:48)
[2021-09-09] MEDS: METOPROLOL SUCCINATE 50 MG TABLET PO SCH (08:48)
[2021-09-09] MEDS: ASPIRIN EC 81 MG TABLET PO SCH (08:48)
[2021-09-09] MEDS: APIXABAN 5 MG TABLET PO SCH (08:48)
[2021-09-09] MEDS: SPIRONOLACTONE 25 MG TABLET PO SCH (08:49)
== END 2021-09-09 12:00 | DRG 291 ==
LOC: EDUNIT# → ED 15:17 → ICU 17:38 → MS2 09-07 22:11
PROVIDERS: ADMIT Internal Medicine; ATTEND Internal Medicine
DX: I11.0 Hypertensive heart disease with heart failure (principal); I50.9 Heart failure, unspecified; I48.91 Unspecified atrial fibrillation; I13.0 Hypertensive heart and chronic kidney disease with heart failure and stage 1 through stage 4 chronic kidney disease, or unspecified chronic kidney disease; I50.23 Acute on chronic systolic (congestive) heart failure; E11.65 Type 2 diabetes mellitus with hyperglycemia; N17.9 Acute kidney failure, unspecified; N18.30 Chronic kidney disease, stage 3 unspecified; E11.649 Type 2 diabetes mellitus with hypoglycemia without coma; E11.22 Type 2 diabetes mellitus with diabetic chronic kidney disease; K21.9 Gastro-esophageal reflux disease without esophagitis; E78.00 Pure hypercholesterolemia, unspecified; Z79.4 Long term (current) use of insulin; I25.10 Atherosclerotic heart disease of native coronary artery without angina pectoris; G20 Parkinson's disease; E78.5 Hyperlipidemia, unspecified; N40.0 Benign prostatic hyperplasia without lower urinary tract symptoms; Z95.1 Presence of aortocoronary bypass graft; J06.9 Acute upper respiratory infection, unspecified; B97.4 Respiratory syncytial virus as the cause of diseases classified elsewhere; I89.0 Lymphedema, not elsewhere classified; Z95.810 Presence of automatic (implantable) cardiac defibrillator; Z79.01 Long term (current) use of anticoagulants; Z95.2 Presence of prosthetic heart valve; Z66 Do not resuscitate; Z79.899 Other long term (current) drug therapy; E87.5 Hyperkalemia; Z20.822 Contact with and (suspected) exposure to COVID-19
CPT/HCPCS: 36415; 51702; 71045; 80048; 80053; 82330; 83036; 83605; 83690; 83735; 83880; 84100; 84484; 85025; 87040; 87150; 87631; 93005; 93306; 94640; 94660; 96365; 96366; 96375; 97116; 97161; 97530; 99285; 99291; A6250; A9270; J1815; 0202U; 82803

== ENCOUNTER 2022-02-02 18:50 | Outpatient (CLI) | payer MEDICARE, OTHER | END 2022-02-02 18:51 | disposition critical access hospital (66) | LOC: EMS 18:50 | DX: R41.82 Altered mental status, unspecified (principal); E11.649 Type 2 diabetes mellitus with hypoglycemia without coma | CPT/HCPCS: A0425; A0427 ==

== ENCOUNTER 2022-02-02 19:11 | Emergency (ER) | payer MEDICARE, OTHER ==
[2022-02-02] MEDS ORDERED: DEXTROSE 50% ABBOJECT 25 GM/50 ML SYRINGE IVP STA ×2 (19:17→21:31)
[2022-02-02 19:31] LABS: BASOPHILS % (AUTO) 0.3 %; EOSINOPHILS # (AUTO) 0.1 10^3/uL (0.0-0.7); EOSINOPHILS % (AUTO) 0.9 %; HCT - HEMATOCRIT 35.7 % (42.0-52.0); HGB - HEMOGLOBIN 11.5 g/dL (14.0-18.0); LYMPHOCYTES # (AUTO) 1.1 10^3/uL (1.5-3.5); MEAN CORPUSCULAR HEMOGLOBIN 29.4 pg (27.0-31.0); MEAN CORPUSCULAR HGB CONC 32.2 g/dL (32.0-36.0); MEAN CORPUSCULAR VOLUME 91.3 fL (80.0-94.0); MEAN PLATELET VOLUME 11.4 fL (7.4-11.4); MONOCYTES # (AUTO) 0.7 10^3/uL (0.0-1.0); MONOCYTES % (AUTO) 10.2 %; NEUTROPHILS # (AUTO) 4.8 10^3/uL (1.5-6.6); NEUTROPHILS % (AUTO) 72.4 %; PLT - PLATELET COUNT 176 10^3/uL (130-450); RED BLOOD COUNT 3.91 10^6/uL (4.70-6.10); RED CELL DISTRIBUTION WIDTH 14.1 % (12.0-15.0); WHITE BLOOD COUNT 6.6 x10^3/uL (4.8-10.8)
--- NOTE | 2022-02-02 19:32 | ED Physician Documentation ---
History of Present Illness - Stated complaint Stated Complaint: EPISODE OF UNRESPONSIVENESS - Additonal information Additional information: 81-year-old male presents emergency department after being found unresponsive at home and hypoglycemic. The patient is a diabetic and self administers his insulin. He reports to me that the needle bent and he thinks he may have given himself 60 units of insulin instead of his traditional 30. He also did not eat a lot today. At home family found the patient unresponsive and moved him to the floor. EMS arrived found he had a blood glucose of 19. An amp of D 25 was administered with resultant rise in blood glucose to 85. Patient became more arousable and talking. On presentation to the ER however his blood glucose is 56 thus in additional amp of D50 is now administered. Patient does have a paced cardiac rhythm. He is anticoagulated on Eliquis. Review of Systems Constitutional: denies: Fever, Chills Eyes: reports: Reviewed and negative Nose: reports: Reviewed and negative Throat: reports: Reviewed and negative GI: reports: Reviewed and negative : reports: Reviewed and negative Skin: reports: Reviewed and negative Musculoskeletal: reports: Reviewed and negative Neurologic: reports: Syncope Psychiatric: reports: Reviewed and negative PD PAST MEDICAL HISTORY - Past Medical History Cardiovascular: Congestive heart failure, Hypertension, High cholesterol, Coronary artery disease, Valve disorder, Other Respiratory: None Neuro: Parkinson's Endocrine/Autoimmune: Type 2 diabetes GI: GERD : Incontinence HEENT: Chronic vision loss Psych: None Musculoskeletal: None Derm: None - Past Surgical History Past Surgical History: Yes Cardiovascular: CABG, Valve replacement, AICD HEENT: Cataracts - Present Medications Home Medications: Ambulatory Orders Medication Instructions Recorded Confirmed Omeprazole 20 mg PO DAILY 03/20/20 02/02/22 Spironolactone 25 mg PO DAILY 03/20/20 02/02/22 Apixaban [Eliquis] 5 mg PO BID 09/02/21 02/02/22 Losartan Potassium 12.5 mg PO DAILY 09/02/21 02/02/22 Metoprolol Succinate 100 mg PO BID 09/02/21 02/02/22 Rosuvastatin Calcium [Crestor] 5 mg PO DAILY 09/02/21 02/02/22 Furosemide [Lasix] 40 mg PO DAILY #30 tablet 09/09/21 02/02/22 Insulin Glargine [Lantus Solostar] 22 unit SUBQ QPM 02/02/22 02/02/22 Insulin Glargine [Lantus Solostar] 30 units SQ DAILY 02/02/22 02/02/22 Tamsulosin [Flomax] 1 tab PO DAILY 02/02/22 02/02/22 - Allergies Allergies/Adverse Reactions: Allergies Allergy/AdvReac Type Severity Reaction Status Date / Time atorvastatin [From Lipitor] Allergy Unknown Verified 02/02/22 19:25 - Social History Does the pt smoke?: No Smoking Status: Never smoker Does the pt drink ETOH?: Yes Does the pt have substance abuse?: No - Immunizations Immunizations are current?: No Immunizations: TDAP >10years/unknown - POLST Patient has POLST: No POLST Status: DNR PD ED PE EXPANDED - General General: Alert, No acute distress - Cardiac Cardiac: Murmur Present (Mechanical click. Paced rhythm.), Pedal strong equal, Cap refill < 2 sec - Respiratory Respiratory: Clear to ausultation abhishek. No: Distress, Labored - Abdomen Abdomen: Normal Bowel sounds. No: Tender to palpation - Derm Derm: Normal color, Diaphoretic. No: Rash - Neuro Neuro: Alert and Oriented X 3, CNII-XII intact - GCS Eye Opening: Spontaneous Motor: Obeys Commands Verbal: Oriented Total: 15 Results - Vitals Vitals: Vital Signs - 24 hr 02/02/22 02/02/22 02/02/22 19:21 19:30 20:17 Temperature 35.8 C L Heart Rate 83 80 83 Respiratory 22 16 16 Rate Blood Pressure 134/83 H 134/83 H 135/83 H O2 Saturation 98 96 100 02/02/22 02/02/22 21:56 22:25 Temperature Heart Rate 81 82 Respiratory 14 18 Rate Blood Pressure 172/92 H 143/108 H O2 Saturation 98 99 Oxygen O2 Source Room air - EKG (time done) 1927 Rate: Rate (enter#) (83) Rhythm: Paced Computer interpretation: Agree with computer (Paced rhythm no further analysis attempted) - Labs Labs: Laboratory Tests 02/02/22 02/02/22 02/02/22 19:20 19:20 19:20 WBC 6.6 RBC 3.91 L Hgb 11.5 L Hct 35.7 L MCV 91.3 MCH 29.4 MCHC 32.2 RDW 14.1 Plt Count 176 MPV 11.4 Neut # (Auto) 4.8 Lymph # (Auto) 1.1 L [place] # (Auto) 0.7 Eos # (Auto) 0.1 Baso # (Auto) 0.0 Absolute Nucleated RBC 0.00 Nucleated RBC % 0.0 Sodium 143 Potassium 4.1 Chloride 108 Carbon Dioxide 26 Anion Gap 9.0 BUN 31 H Creatinine 1.2 Estimated GFR (MDRD) 58 L Glucose 58 L* Lactic Acid Calcium 8.7 Total Bilirubin 0.8 AST 21 ALT 21 Alkaline Phosphatase 96 Troponin I High Sens 32.1 H* Total Protein 6.1 L Albumin 2.7 L Globulin 3.4 Albumin/Globulin Ratio 0.8 L Lipase 19 L 02/02/22 02/02/22 19:35 21:16 WBC RBC Hgb Hct MCV MCH MCHC RDW Plt Count MPV Neut # (Auto) Lymph # (Auto) [place] # (Auto) Eos # (Auto) Baso # (Auto) Absolute Nucleated RBC Nucleated RBC % Sodium Potassium Chloride Carbon Dioxide Anion Gap BUN Creatinine Estimated GFR (MDRD) Glucose Lactic Acid 1.1 Calcium Total Bilirubin AST ALT Alkaline Phosphatase Troponin I High Sens 36.3 H* Total Protein Albumin Globulin Albumin/Globulin Ratio Lipase PD MEDICAL DECISION MAKING - ED course Complexity details: reviewed results, re-evaluated patient, considered erick logan, d/w patient, d/w family ED course: 81-year-old male who is a diabetic on twice daily insulin injections at home presents to the emergency department after being found unresponsive by family at home. Patient reportedly took 60 units of insulin instead of his regular 30. In addition to this he ate very little today. For EMS his initial glucose was 19. It increased to 85 after an amp of D 25. On presentation to the emergency department his initial blood glucose was 53. I then gave him an amp of D50. On recheck it was 106. We continue to observe him here for about another 90 minutes and on recheck his blood glucose had decreased to 71. He did drink 6 ounces of apple juice and admit additional D50 was administered. His screening labs are most significant for hypoglycemia as well as a very mild troponin elevation (33). This is likely due to the severe hypoglycemia episode. A repeat troponin is flat at 36. EKG shows a paced rhythm. But given hyp oglycemia and flat troponins low suspicion for ACS.. While here in the emergency department the patient has been hemodynamically stable. GCS of 15 with no focal deficits. He denies any chest pain or shortness of air. There has been no nausea or vomiting. I did discuss this case with admitting hospitalist Dr. Corey. He would like the patient to be observed for a few more hours in the emergency department. If he continues to have a decrease in his blood glucose despite the additional dextrose and oral juice that I administered at that point he would be admitted overnight for observation. 2200: Patient is signed out to my nighttime colleague Dr. Velazquez to follow-up on further blood sugar checks. Departure - Departure Clinical Impression: Hypoglycemia due to insulin Condition: Stable Record reviewed to determine appropriate education?: Yes
[2022-02-02 19:48] LABS: ALBUMIN 2.7 g/dL (3.2-5.5); ALBUMIN/GLOBULIN RATIO 0.8 (1.0-2.2); BILIRUBIN,TOTAL 0.8 mg/dL (0.2-1.0); CALCIUM 8.7 mg/dL (8.5-10.3); CREATININE 1.2 mg/dL (0.6-1.2); POTASSIUM 4.1 mmol/L (3.5-5.0); TOTAL PROTEIN 6.1 g/dL (6.7-8.2)
--- OUTSIDE RECORDS SUMMARY | 2022-02-02 20:11 | EXTERNAL MEDICAL SUMMARY RPT | Continuity of Care Document ---
:1940 Author Organization [facility] Address [address] [place] [address] Phone Care Team Providers Name Role Phone [place] Unavailable Unavailable Allergies No information. Encounters No information. Medications No information. Problems date description facility [id number] Cardiomyopathy, unspecified [facility] Results No information.
[2022-02-03 01:01] LABS: BILIRUBIN,URINE NEGATIVE (NEGATIVE); GLUCOSE, URINE (UA) 100 mg/dL (NEGATIVE); KETONES,URINE (UA) NEGATIVE (NEGATIVE); LEUKOCYTE ESTERASE, URINE NEGATIVE (NEGATIVE); NITRITE,URINE NEGATIVE (NEGATIVE); OCCULT BLOOD,URINE MODERATE (NEGATIVE); PROTEIN,URINE >=300 mg/dL (NEGATIVE); UROBILINOGEN,URINE 1 (NORMAL) E.U./dL (NORMAL)
[2022-02-03 01:02] LABS: CLARITY,URINE CLEAR (CLEAR)
[2022-02-03 01:12] LABS: BACTERIA,URINE None Seen /HPF (None Seen); CASTS, URINE 0-2 Hyaline Casts /LPF; RBC,URINE 0-5 /HPF (0-5); SQUAMOUS EPITHELIAL CELL,UR FEW Squamous (<= Few); WBC,URINE 0-3 /HPF (0-3)
[2022-02-03] MEDS ORDERED: DEXTROSE 50% ABBOJECT 25 GM/50 ML SYRINGE IVP STA (01:44)
[2022-02-03 03:52] VITALS: BP 116/85
--- NOTE | 2022-02-03 09:24 | ED Physician Documentation ---
ED Addendum - Addendum Addendum: 02/03/22 09:18 Received sign out from STEFANY Estrada. Presented with AMS attributed to hypoglycemia. Plan is to hold patient in ED until blood sugar (by fingersticks) has stabilized. He had readings of 188, 136, 78 during my shift. He is given another 1 amp D50 for FSBS of 78 although he had no correlating symptoms. His subsequent FSBS was 167 and he was AAOx3 and in NAD. He did have scant right nare epistaxis late in stay. I did not see source of bleeding but there was no active bleeding when I examined the right nare. he tells me he recently had an increase in his insulin , approximately 1 week ago. I advised him to revert back to whatever his previous insulin dosing was before it was recently increased and to contact his primary care provider in the morning to arrange for follow up
== END 2022-02-03 03:52 | disposition home or self-care (01) ==
LOC: EDUNIT# → ED 19:11
DX: E11.649 Type 2 diabetes mellitus with hypoglycemia without coma (principal); Z79.4 Long term (current) use of insulin; Z66 Do not resuscitate
CPT/HCPCS: 36415; 80053; 81001; 81003; 83605; 83690; 84484; 85025; 87086; 93005; 96374; 96376; 99284

== ENCOUNTER 2022-05-07 09:02 | Outpatient (CLI) | payer MEDICARE, OTHER | END 2022-05-07 09:03 | disposition critical access hospital (66) | LOC: EMS 09:02 | DX: R53.1 Weakness (principal); E11.65 Type 2 diabetes mellitus with hyperglycemia; W01.0XXA Fall on same level from slipping, tripping and stumbling without subsequent striking against object, initial encounter; Y92.003 Bedroom of unspecified non-institutional (private) residence as the place of occurrence of the external cause; Z79.4 Long term (current) use of insulin; T50.906A Underdosing of unspecified drugs, medicaments and biological substances, initial encounter; Z91.128 Patient's intentional underdosing of medication regimen for other reason; Z63.4 Disappearance and death of family member | CPT/HCPCS: A0425; A0427 ==

== ENCOUNTER 2022-05-07 09:25 | Observation (INO) | payer MEDICARE, OTHER ==
--- NOTE | 2022-05-07 09:43 | ED Physician Documentation ---
PD HPI Fall - Stated complaint Stated Complaint: GLF - History obtained from History obtained from: Patient, Family (info to medics from [id number]), EMS - History of Present Illness Mechanism of injury: Slipped (History of general weakness and congestive heart failure with end-stage heart disease. [place] news his son 4 days ago and stopped eating or taking his medicines. Slumped to the floor today and unable to get up. Daughter unable to lift him.) Fall distance: Standing position (unwitnessed fall to floor, presume from standing, due to general weakness increased the past 5 days. Usually uses walk er. End stage CAD/heart failure. Current reactive depression when heard his son 5 days ago and has refused eating/medications since. Family states he is weak/noninteractive.) Where injury occurred: Home Timing - onset: How many days ago (has had refusal to eat and take meds for 5 days. Fell today due to weakness.) Injury(ies) location: No: Head, Neck, Chest Quality of pain: Aching Associated symptoms: Weakness (generalized). No: LOC, Paresthesias Contributing factors: Anticoagulated Similar symptoms before: Has not had sx before Recently seen: Clinic (last visit with Dr. Rodriguez Cardiology concluded that heart failure was end stage and follow up ECHO not scheduled for 9 months.), Not recently seen Review of Systems Unable to obtain: Other (reluctant to answer questions. He is able to converse coherently though just slow to respond.) Constitutional: denies: Fever Nose: denies: Congestion Respiratory: reports: Dyspnea. denies: Cough GI: denies: Abdominal Pain Neurologic: reports: Generalized weakness. denies: Focal weakness, Headache PD PAST MEDICAL HISTORY - Past Medical History Cardiovascular: Congestive heart failure (end stage/severe), Hypertension, High cholesterol, Coronary artery disease, Valve disorder, Other Respiratory: None Neuro: Parkinson's Endocrine/Autoimmune: Type 2 diabetes GI: GERD : Incontinence, Renal insuffiency HEENT: Chronic vision loss Psych: None Musculoskeletal: None Derm: None - Past Surgical History Past Surgical History: Yes Cardiovascular: CABG, Valve replacement, AICD HEENT: Cataracts - Present Medications Home Medications: Ambulatory Orders Medication Instructions Recorded Confirmed Omeprazole 20 mg PO DAILY 03/20/20 02/02/22 Spironolactone 25 mg PO DAILY 03/20/20 02/02/22 Apixaban [Eliquis] 5 mg PO BID 09/02/21 02/02/22 Losartan Potassium 12.5 mg PO DAILY 09/02/21 02/02/22 Metoprolol Succinate 100 mg PO BID 09/02/21 02/02/22 Rosuvastatin Calcium [Crestor] 5 mg PO DAILY 09/02/21 02/02/22 Furosemide [Lasix] 40 mg PO DAILY #30 tablet 09/09/21 02/02/22 Insulin Glargine [Lantus Solostar] 22 unit SUBQ QPM 02/02/22 02/02/22 Insulin Glargine [Lantus Solostar] 30 units SQ DAILY 02/02/22 02/02/22 Tamsulosin [Flomax] 1 tab PO DAILY 02/02/22 02/02/22 - Allergies Allergies/Adverse Reactions: Allergies Allergy/AdvReac Type Severity Reaction Status Date / Time atorvastatin [From Lipitor] Allergy Unknown Verified 02/02/22 19:25 - Social History Does the pt smoke?: No Smoking Status: Never smoker Does the pt drink ETOH?: Yes Does the pt have substance abuse?: No - Immunizations Immunizations are current?: No Immunizations: TDAP >10years/unknown - POLST Patient has POLST: No POLST Status: DNR PD ED PE NORMAL - Vitals Vital signs reviewed: Yes - General General: No acute distress, Well developed/nourished. No: Alert and oriented X 3 (alert and opens eyes to verbal direction. Able to answer questions but seems reluctant. Depressed affect and low tone answers. ) - HEENT HEENT: Atraumatic - Neck Neck: Supple, no meningeal sign, No bony TTP, No adenopathy - Cardiac Cardiac: Other (1/6 murmur left chest). No: RRR - Respiratory Respiratory: No: Clear bilaterally (fine crackles diffusely. No wheezing. ) - Abdomen Abdomen: Soft, Non tender - Back Back: No CVA TTP - Derm Derm: Normal color, Warm and dry - Extremities Extremities: No calf tenderness / cord, Other (1+ edema both legs. ) - Neuro Neuro: No motor deficit, No sensory deficit, Normal speech Eye Opening: To Voice Motor: Obeys Commands Verbal: Confused GCS Score: 13 - Psych Psych: No: Normal affect (flat and depressed) Results - Vitals Vitals: Vital Signs - 24 hr 05/07/22 05/07/22 05/07/22 09:39 10:21 11:00 Temperature 36.7 C Heart Rate 134 H 132 H 122 H Respiratory 24 20 24 Rate Blood Pressure 117/89 H 121/93 H 134/113 H O2 Saturation 98 100 100 05/07/22 11:43 Temperature Heart Rate 128 H Respiratory 30 H Rate Blood Pressure 101/85 H O2 Saturation 100 Oxygen O2 Source Room air - EKG (time done) 10:06 Rate: Rate (enter#) (132) Rhythm: NSR, Atrial flutter (very regular tachycardia, consider atrial flutter vs sinus tach.) Intervals: Wide QRS Ischemia: Non specific changes. No: ST elevation c/w ischemia - Labs Labs: Laboratory Tests 05/07/22 05/07/22 05/07/22 09:45 09:45 09:45 WBC 11.7 H RBC 4.70 Hgb 12.8 L Hct 40.7 L MCV 86.6 MCH 27.2 MCHC 31.4 L RDW 15.2 H Plt Count 194 MPV 13.0 H Neut # (Auto) 9.6 H Lymph # (Auto) 1.2 L [place] # (Auto) 0.9 Eos # (Auto) 0.0 Baso # (Auto) 0.0 Absolute Nucleated RBC 0.04 Nucleated RBC % 0.3 PT 33.3 H INR 3.0 H Sodium 139 Potassium 5.3 H Chloride 105 Carbon Dioxide 16 L Anion Gap 18.0 H BUN 83 H* Creatinine 4.1 H Estimated GFR (MDRD) 14 L Glucose 398 H Calcium 8.3 L Magnesium 2.2 Total Bilirubin 1.3 H AST 367 H ALT 643 H Alkaline Phosphatase 107 Troponin I High Sens B-Natriuretic Peptide Total Protein 6.3 L Albumin 2.7 L Globulin 3.6 Albumin/Globulin Ratio 0.8 L Lipase 26 Nasal Adenovirus (PCR) Nasal B. parapertussis DNA (PCR) Nasal Coronavir 229E PCR Nasal Coronavir HKU1 PCR Nasal Coronavir NL63 PCR Nasal Coronavir OC43 PCR Nasal Enterovir/Rhinovir PCR Nasal Influenza B PCR Nasal Influenza A PCR Nasal Parainfluen 1 PCR Nasal Parainfluen 2 PCR Nasal Parainfluen 3 PCR Nasal Parainfluen 4 PCR Nasal RSV (PCR) Nasal B.pertussis DNA PCR Nasal C.pneumoniae (PCR) [place] Human Metapneumo PCR Nasal M.pneumoniae (PCR) Nasal SARS-CoV-2 (PCR) Serum Ketones NEGATIVE 05/07/22 05/07/22 05/07/22 09:45 09:45 11:18 WBC RBC Hgb Hct MCV MCH MCHC RDW Plt Count MPV Neut # (Auto) Lymph # (Auto) [place] # (Auto) Eos # (Auto) Baso # (Auto) Absolute Nucleated RBC Nucleated RBC % PT INR Sodium Potassium Chloride Carbon Dioxide Anion Gap BUN Creatinine Estimated GFR (MDRD) Glucose Calcium Magnesium Total Bilirubin AST ALT Alkaline Phosphatase Troponin I High Sens 117.4 H* 106.2 H* B-Natriuretic Peptide 2929 H Total Protein Albumin Globulin Albumin/Globulin Ratio Lipase Nasal Adenovirus (PCR) Nasal B. parapertussis DNA (PCR) Nasal Coronavir 229E PCR Nasal Coronavir HKU1 PCR Nasal Coronavir NL63 PCR Nasal Coronavir OC43 PCR Nasal Enterovir/Rhinovir PCR Nasal Influenza B PCR Nasal Influenza A PCR Nasal Parainfluen 1 PCR Nasal Parainfluen 2 PCR Nasal Parainfluen 3 PCR Nasal Parainfluen 4 PCR Nasal RSV (PCR) Nasal B.pertussis DNA PCR Nasal C.pneumoniae (PCR) [place] Human Metapneumo PCR Nasal M.pneumoniae (PCR) Nasal SARS-CoV-2 (PCR) Serum Ketones 05/07/22 11:37 WBC RBC Hgb Hct MCV MCH MCHC RDW Plt Count MPV Neut # (Auto) Lymph # (Auto) [place] # (Auto) Eos # (Auto) Baso # (Auto) Absolute Nucleated RBC Nucleated RBC % PT INR Sodium Potassium Chloride Carbon Dioxide Anion Gap BUN Creatinine Estimated GFR (MDRD) Glucose Calcium Magnesium Total Bilirubin AST ALT Alkaline Phosphatase Troponin I High Sens B-Natriuretic Peptide Total Protein Albumin Globulin Albumin/Globulin Ratio Lipase Nasal Adenovirus (PCR) NOT DETECTED Nasal B. parapertussis DNA (PCR) NOT DETECTED Nasal Coronavir 229E PCR NOT DETECTED Nasal Coronavir HKU1 PCR NOT DETECTED Nasal Coronavir NL63 PCR NOT DETECTED Nasal Coronavir OC43 PCR NOT DETECTED Nasal Enterovir/Rhinovir PCR NOT DETECTED Nasal Influenza B PCR NOT DETECTED Nasal Influenza A PCR NOT DETECTED Nasal Parainfluen 1 PCR NOT DETECTED Nasal Parainfluen 2 PCR NOT DETECTED Nasal Parainfluen 3 PCR NOT DETECTED Nasal Parainfluen 4 PCR NOT DETECTED Nasal RSV (PCR) NOT DETECTED Nasal B.pertussis DNA PCR NOT DETECTED Nasal C.pneumoniae (PCR) NOT DETECTED [place] Human Metapneumo PCR NOT DETECTED Nasal M.pneumoniae (PCR) NOT DETECTED Nasal SARS-CoV-2 (PCR) NOT DETECTED Serum Ketones - Rads (name of study) chest xray Radiology: Prelim report reviewed (vascular congestion c/w edema. ), See rad report head CT Radiology: Prelim report reviewed (no ICH), See rad report cervical CT Radiology: Prelim report reviewed (no fractures), See rad report PD MEDICAL DECISION MAKING - ED course Complexity details: reviewed results, considered differential (arrived as modified trauma with fall, on anticoags, with less responsive. He was responsive to verbal here. Seemed more reluctant to interact than unable. Initial assessment on injury and metabolic with history of poor intake. Then got more of a picture of palliative/hospice desire when s/w family.), d/w patient, d/w family (daughter in law initially, who gave update on recent history noted in HPI. ), d/w supply chain consultant (Talked with Dr. Berger hospitalist, who spoke with patient's son (POA) with decision for DISTILLATION OPERATOR and not aggressive interventions. ) Departure - Departure Disposition: ED Place in Observation Clinical Impression: Renal failure (ARF), acute on chronic, End stage heart failure, Generalized weakness, Dementia Condition: Poor Discharge Date/Time: 05/07/22 13:14
[2022-05-07] MEDS ORDERED: SODIUM CHLORIDE 0.9% 1,000 ML IV STA (09:44)
[2022-05-07 09:56] LABS: BASOPHILS % (AUTO) 0.3 %; HCT - HEMATOCRIT 40.7 % (42.0-52.0); HGB - HEMOGLOBIN 12.8 g/dL (14.0-18.0); LYMPHOCYTES # (AUTO) 1.2 10^3/uL (1.5-3.5); LYMPHOCYTES % (AUTO) 9.9 %; MEAN CORPUSCULAR HEMOGLOBIN 27.2 pg (27.0-31.0); MEAN CORPUSCULAR HGB CONC 31.4 g/dL (32.0-36.0); MEAN CORPUSCULAR VOLUME 86.6 fL (80.0-94.0); MONOCYTES # (AUTO) 0.9 10^3/uL (0.0-1.0); MONOCYTES % (AUTO) 7.3 %; NEUTROPHILS # (AUTO) 9.6 10^3/uL (1.5-6.6); NEUTROPHILS % (AUTO) 81.4 %; NRBC ABSOLUTE COUNT (AUTO) 0.04 x10^3/uL; NUCLEATED RED BLOOD CELLS AUTO 0.3 /100WBC; PLT - PLATELET COUNT 194 10^3/uL (130-450); RED CELL DISTRIBUTION WIDTH 15.2 % (12.0-15.0); WHITE BLOOD COUNT 11.7 x10^3/uL (4.8-10.8)
[2022-05-07 10:01] LABS: KETONES, SERUM (ACETEST) NEGATIVE (NEGATIVE)
[2022-05-07 10:13] LABS: PT - PROTHROMBIN TIME 33.3 secs (9.9-12.6)
[2022-05-07 10:16] LABS: ALBUMIN 2.7 g/dL (3.2-5.5); ALBUMIN/GLOBULIN RATIO 0.8 (1.0-2.2); ALKALINE PHOSPHATASE 107 IU/L (42-121); ALT ALANINE AMINOTRANSFERASE 643 IU/L (10-60); AST ASPARTATE AMINOTRANSFERASE 367 IU/L (10-42); BILIRUBIN,TOTAL 1.3 mg/dL (0.2-1.0); CALCIUM 8.3 mg/dL (8.5-10.3); CARBON DIOXIDE - CO2 16 mmol/L (21-32); CHLORIDE 105 mmol/L (101-111); CREATININE 4.1 mg/dL (0.6-1.2); GFR - MDRD 14 (>89); GLUCOSE 398 mg/dL (70-100); LIPASE 26 U/L (22-51); MAGNESIUM 2.2 mg/dL (1.7-2.8); POTASSIUM 5.3 mmol/L (3.5-5.0); SODIUM 139 mmol/L (135-145); TOTAL PROTEIN 6.3 g/dL (6.7-8.2)
[2022-05-07 10:17] LABS: BUN - BLOOD UREA NITROGEN 83 mg/dL (6-20)
--- NOTE | 2022-05-07 10:18 | CT Report ---
PROCEDURE: HEAD WO INDICATIONS: fall, on DOAC TECHNIQUE: Noncontrast 4.5 mm thick angled axial sections acquired from the foramen magnum to the vertex. For r adiation dose reduction, the following was used: automated exposure control, adjustment of mA and/or kV according to patient size. COMPARISON: Correlation is made with the accompanying cervical spine CT, 05/07/2022. FINDINGS: Image quality: Excellent. CSF spaces: Basal cisterns are patent. No extra-axial fluid collections. Ventricles are normal in size and shape. Brain: No midline shift. No intracranial masses or hemorrhage. [place]-white matter interface is norm al. There is a focal low density seen involving the posterior aspect of the right frontal lobe. Relat donya sparing of the overlying [place] matter can be seen. Skull and face: Calvarium and visualized facial bones are intact, without suspicious lesions. Sinuses: Visualized sinuses and mastoids are clear. IMPRESSION: No intracranial hemorrhage is seen. Focal low density can be seen involving the posterior aspect of the right frontal lobe. Although this is statistically most likely related to a remote infarction, there is relative sparing of the overly ing [place] matter and differential diagnosis would include an underlying tumor with edema. Please corre late with known patient history and any prior outside imaging. If clinically appropriate, please consider a follow-up brain MRI (without and with contrast) for fur ther evaluation (assuming that there is no contraindication). Reviewed by: Kannan Nathan MD on 05/07/2022 9:17 AM JUAN ANTONIO Approved by: Kannan Nathan MD on 05/07/2022 9:17 AM JUAN ANTONIO Station ID: [id number]
--- NOTE | 2022-05-07 10:21 | CT Report ---
PROCEDURE: CERVICAL SPINE WO INDICATIONS: fall TECHNIQUE: Noncontrast 3 mm thick sections acquired from the skull base to the T4 level. Sagittal and coronal r eformats were then constructed. For radiation dose reduction, the following was used: automated exp osure control, adjustment of mA and/or kV according to patient size. COMPARISON: Correlation is made with the accompanying head CT, 05/07/2022. FINDINGS: Image quality: This study is limited by quantum mottle artifact. Bones: No fractures or dislocations. Visualized superior ribs are intact. There is moderate disc space narrowing seen at C2-3, with moderate to severe disc space narrowing see n at C3-C4, C4-C5, C5-C6, and C6-C7. Mild reversal of the normal cervical lordosis is seen. There is minimal anterolisthesis of C3-C4 and minimal retrolisthesis seen at C4-C5 and at C5-6. Sternotomy wires are partially seen. Soft tissues: Prevertebral soft tissues are normal in thickness. No paravertebral hematomas. No ap ical pneumothoraces. Atherosclerotic calcification is seen. There is partial visualization of left sided pacer leads. A small to moderate left-sided pleural effusion can be seen. IMPRESSION: No acute fracture is seen. There is a small to moderate left-sided pleural effusion. Please consider follow-up chest imaging for further evaluation. Prominent degenerative changes are seen. Reversal of the normal cervical lordosis is seen. This is commonly observed in patients with muscular spasm. Incidental note is made of: Sternotomy wires Left-sided pacer leads Reviewed by: Kannan Nathan MD on 05/07/2022 9:19 AM JUAN ANTONIO Approved by: Kannan Nathan MD on 05/07/2022 9:19 AM JUAN ANTONIO Station ID: [id number]
--- OUTSIDE RECORDS SUMMARY | 2022-05-07 10:40 | EXTERNAL MEDICAL SUMMARY RPT | Continuity of Care Document ---
:1940 Author Organization [facility] Address [address] [place] [address] Phone Allergies No information. Encounters No information. Functional Status No information. Immunizations No information. Medications No information. Problems No information. Procedures No information. Results/Labs test date author facility value unit interpret ation Result panel 1 (unknown) (no (unknown) (unknown) (no value) (units (unk nown) date) unknown) (unknown) (no (unknown) (unknown) [address] [place] [address] (units (unknown) date) unknown) (unknown) (no (unknown) (unknown) sev ratio: 0.44 (units (unknown) date) unknown) (unknown) (no (unknown) (unknown) [place], [place] (units ( unknown) date) [id number] unknown) (unknown) (no (unknown) (unknown) Echocardiogram (units (unknown) date) Report unknown) (unknown) (no (unknown) (unknown) Echocardiography (units (unknown) date) Report unknown) (unknown) (no (unknown) (unknown) Electronically (units (unknown) date) signed by: Grace unknown) Dmitry Rodriguez on 03/16/2022 (unknown) (no (unknown) (unknown) [facility] (units (unkno wn) date) unknown) (unknown) (no (unknown) (unknown) [facility] (units (unknown) date) unknown) (unknown) (no (unknown) (unknown) Signed (units (unkno wn) date) unknown) (unknown) (no (unknown) (unknown) (no value) (units (unk nown) date) unknown) (unknown) (no (unknown) (unknown) +---------+ (units (un known) date) [phone] unknown) +---------+ (unknown) (no (unknown) (unknown) +---------+ (units (un known) date) Hospital unknown) +---------+ (unknown) (no (unknown) (unknown) + (units (unknown) date) unknown) ---+ (unknown) (no (unknown) (unknown) 03/15/22 (units (unkno wn) date) unknown) (unknown) (no (unknown) (unknown) 1) Mildly dilated (units (unknown) date) left ventricle with unknown) severely reduced systolic function (EF (unknown) (no (unknown) (unknown) 2) The right (units (u nknown) date) ventricle is unknown) moderately dilated and has moderately reduced (unknown) (no (unknown) (unknown) 25-30%). (units (unkno wn) date) unknown) (unknown) (no (unknown) (unknown) 3) Severely (units (un known) date) enlarged left unknown) atrium. (unknown) (no (unknown) (unknown) 30% on this study. 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 (unknown) (no (unknown) (unknown) 7) Compared to the (units (unknown) date) Echo done 11/15/2021, unknown) LVEF has decreased from 30-35% to 25- (unknown) (no (unknown) (unknown) : : [address] (units (unknown) date) [address] : : unknown) (unknown) (no (unknown) (unknown) : : [id number] (units (unknown) date) : : unknown) (unknown) (no (unknown) (unknown) : : (units (unkno wn) date) Maria De Jesus GONZALES : unknown) : (unknown) (no (unknown) (unknown) : : Phone: (units (unknown) date) [phone] : : unknown) (unknown) (no (unknown) (unknown) :Account #: (units (un known) date) [id number] unknown) Gender: Male BSA: 2.1 m2 : (unknown) (no (unknown) (unknown) :CLINTRIGU (units (unkno wn) date) Performed By: unknown) Mariam Garcia : (unknown) (no (unknown) (unknown) :: 1940 (units (unknown) date) Age: 81 yrs BP: unknown) 140/89 mmHg: (unknown) (no (unknown) (unknown) :[facility] MRN #: (units (unknown) date) [id number] unknown) ReadingLocation: Weight: 220 lb : (unknown) (no (unknown) (unknown) :Name: KINJAL, (units (unknown) date) GLENN Sheriff Study unknown) Date: 03/15/2022 Height: 68 in : (unknown) (no (unknown) (unknown) :Ordering (units (unkn own) date) Physician: MELIDA, teddy) : (unknown) (no (unknown) (unknown) :Reason For Study: (units (unknown) date) CARDIOMYOPATHY : unknown) (unknown) (no (unknown) (unknown) :Referring: (units (un known) date) GRACE RODRIGUEZ : unknown) (unknown) (no (unknown) (unknown) Ao V2 VTI: 25.6 cm (units (unknown) date) JACEY(V,D): 1.4 unknown) cm2 (unknown) (no (unknown) (unknown) Ao V2 max: 151.6 (units (unknown) date) cm/sec LVOT Max unknown) Osman: 67.0 cm/sec (unknown) (no (unknown) (unknown) Ao V2 mean: 107.5 (units (unknown) date) cm/sec LV V1 max unknown) P.8 mmHg (unknown) (no (unknown) (unknown) Ao max P.4 (units (unknown) date) mmHg LV V1 VTI: unknown) 11.3 cm (unknown) (no (unknown) (unknown) Ao mean P.6 (units (unknown) date) mmHg JACEY(I,D): unknown) 1.4 cm2 (unknown) (no (unknown) (unknown) Aortic Valve: (units ( unknown) date) 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 There is no aortic valve (unknown) (no (unknown) (unknown) Atria: The left (units (unknown) date) atrium is severely unknown) dilated. The right atrium is mildly (unknown) (no (unknown) (unknown) Comparison is made (units (unknown) date) with the unknown) echocardiogram of 11/15/2021. The patient has a (unknown) (no (unknown) (unknown) Doppler (units (unkno wn) date) Measurements + unknown) Calculations (unknown) (no (unknown) (unknown) E/E' lat: 19.5 (units (unknown) date) unknown) (unknown) (no (unknown) (unknown) E/E' med: 29.1 (units (unknown) date) PA mean P.3 unknown) mmHg (unknown) (no (unknown) (unknown) E/e' average: 24.3 (units (unknown) date) unknown) (unknown) (no (unknown) (unknown) EPSS: 2.3 cm Ao (units (unknown) date) Arch Diam (Prox unknown) Trans): 2.4 cm (unknown) (no (unknown) (unknown) FS: 7.9 % asc (units (unknown) date) Aorta Diam: 3.4 cm unknown) (unknown) (no (unknown) (unknown) Great Vessels: (units (unknown) date) The aortic root is unknown) normal size. The dimensions of the (unknown) (no (unknown) (unknown) IVSd: 0.98 cm (units ( unknown) date) unknown) (unknown) (no (unknown) (unknown) Interpretation (units (unknown) date) Summary unknown) (unknown) (no (unknown) (unknown) LA A2 area: 36.5 (units (unknown) date) cm2 RA long unknown) axis: 5.4 cm (unknown) (no (unknown) (unknown) LA A4 area: 35.5 (units (unknown) date) cm2 RA area: unknown) 22.3 cm2 (unknown) (no (unknown) (unknown) LA length (vol): (units (unknown) date) 6.9 cm RA vol: unknown) 78.3 ml (unknown) (no (unknown) (unknown) LA vol index: 74.7 (units (unknown) date) ml/m2 IVC diam: unknown) 2.9 cm (unknown) (no (unknown) (unknown) LA vol: 159.0 ml (units (unknown) date) RA : 36.8 ml/m2 unknown) (unknown) (no (unknown) (unknown) LVIDd: 5.6 cm (units ( unknown) date) LVOT diam: 2.0 cm unknown) (unknown) (no (unknown) (unknown) LVIDs: 5.1 cm (units ( unknown) date) Ao root diam: 3.1 unknown) cm (unknown) (no (unknown) (unknown) LVPWd: 1.2 cm (units ( unknown) date) unknown) (unknown) (no (unknown) (unknown) Lat Peak E' Osman: (units (unknown) date) 6.8 cm/sec PA unknown) pr(Accel): 48.2 mmHg (unknown) (no (unknown) (unknown) Left Ventricle: (units (unknown) date) The left ventricle unknown) is mildly dilated. The estimated left (unknown) (no (unknown) (unknown) MMode/2D (units (unkno wn) date) Measurements + unknown) Calculations (unknown) (no (unknown) (unknown) MV A max osman: (units ( unknown) date) 110.1 cm/sec unknown) TR max P.9 mmHg (unknown) (no (unknown) (unknown) MV E max osman: (units ( unknown) date) 132.6 cm/sec unknown) TR max osman: 303.7 cm/sec (unknown) (no (unknown) (unknown) MV E/A: 1.2 PA (units (unknown) date) V2 max: 86.0 cm/sec unknown) (unknown) (no (unknown) (unknown) MV V2 VTI: 23.6 cm (units (unknown) date) unknown) (unknown) (no (unknown) (unknown) MV V2 mean: 88.1 (units (unknown) date) cm/sec SV(LVOT): unknown) 34.6 ml (unknown) (no (unknown) (unknown) MV dec time: 0.24 (units (unknown) date) sec unknown) (unknown) (no (unknown) (unknown) MV mean P.9 (units (unknown) date) mmHg unknown) (unknown) (no (unknown) (unknown) MVA(VTI): 1.5 cm2 (units (unknown) date) unknown) (unknown) (no (unknown) (unknown) Med Peak E' Osman: (units (unknown) date) 4.6 cm/sec PA unknown) V2 mean: 53.6 cm/sec (unknown) (no (unknown) (unknown) Mitral Valve: (units ( unknown) date) The mitral valve unknown) leaflets are moderately calcified. There is (unknown) (no (unknown) (unknown) Pericardium/ (units (u nknown) date) Pleura There is unknown) no pericardial effusion. There is no pleural (unknown) (no (unknown) (unknown) Procedure: A (units (unknown) date) two-dimensional unknown) transthoracic echocardiogram with color flow (unknown) (no (unknown) (unknown) Pulmonic Valve: (units (unknown) date) There is mild unknown) pulmonic regurgitation. (unknown) (no (unknown) (unknown) RVD1 (basal): 5.1 (units (unknown) date) cm unknown) (unknown) (no (unknown) (unknown) RVD2 (mid): 4.5 cm (units (unknown) date) unknown) (unknown) (no (unknown) (unknown) Reading (units (unkno wn) date) Physician:09:27 AM unknown) (unknown) (no (unknown) (unknown) Right Ventricle: (units (unknown) date) The right ventricle unknown) is moderately dilated. There is a (unknown) (no (unknown) (unknown) TAPSE: 1.3 cm (units ( unknown) date) unknown) (unknown) (no (unknown) (unknown) Tricuspid Valve: (units (unknown) date) Tricuspid leaflets unknown) are thickened. There is mild tricuspid (unknown) (no (unknown) (unknown) (units (unknown) date) unknown) ___ (unknown) (no (unknown) (unknown) and Doppler was (units (unknown) date) performed. The unknown) study quality was technically adequate. (unknown) (no (unknown) (unknown) ascending aorta (units (unknown) date) are normal. The IVC unknown) is dilated (diameter is greater than 2.1 (unknown) (no (unknown) (unknown) atrial pressure of (units (unknown) date) 8 mm Hg. unknown) (unknown) (no (unknown) (unknown) cm) yet it (units (unk nown) date) collapses greater unknown) than 50% with a sniff. This suggests a right (unknown) (no (unknown) (unknown) dilated. There is (units (unknown) date) no Doppler evidence unknown) for an interatrial shunt. (unknown) (no (unknown) (unknown) effusion. (units (unkn own) date) unknown) (unknown) (no (unknown) (unknown) function could not (units (unknown) date) be accurately unknown) assessed due to paced rhythm. (unknown) (no (unknown) (unknown) function. There is (units (unknown) date) a pacemaker lead in unknown) the right ventricle. (unknown) (no (unknown) (unknown) gradient 6.6mm (units (unknown) date) Hg). There is mild unknown) aortic regurgitation. (unknown) (no (unknown) (unknown) in the mitral (units ( unknown) date) position. The unknown) mitral valve mean gradient is 3.9 mmHg. There is (unknown) (no (unknown) (unknown) least 46 mmHg (units ( unknown) date) based on an unknown) estimated right atrial pressure of 8 mm Hg. (unknown) (no (unknown) (unknown) mild (units (unkno wn) date) dyssynchronous unknown) contraction pattern due to the paced rhythm. Diastolic (unknown) (no (unknown) (unknown) mild mitral (units (un known) date) regurgitation. unknown) (unknown) (no (unknown) (unknown) mildly increased. (units (unknown) date) The ejection unknown) fraction is estimated to be 25-30%. There is a (unknown) (no (unknown) (unknown) mitral (units (unkno wn) date) regurgitation. unknown) (unknown) (no (unknown) (unknown) moderate to severe (units (unknown) date) mitral annular unknown) calcification. An annuloplasty ring is noted (unknown) (no (unknown) (unknown) moderately (units (unk nown) date) reduced. unknown) (unknown) (no (unknown) (unknown) paced rhythm. The (units (unknown) date) heart rate ranged unknown) between 45-55 bpm during the study. (unknown) (no (unknown) (unknown) pacemaker lead in (units (unknown) date) the right unknown) ventricle. Right ventricular systolic function is (unknown) (no (unknown) (unknown) regurgitation. The (units (unknown) date) right ventricular unknown) systolic pressure is estimated to be at (unknown) (no (unknown) (unknown) stenosis. There is (units (unknown) date) mild aortic unknown) regurgitation. (unknown) (no (unknown) (unknown) ventricular end (units (unknown) date) diastolic volume is unknown) 152 ml. Left ventricular wall thickness is (unknown) (no (unknown) (unknown) [id number] (units (unkn own) date) unknown) (unknown) (no (unknown) (unknown) Accession Number: (units (unknown) date) [id number] unknown) (unknown) (no (unknown) (unknown) Age/Sex: 81 / M (units (unknown) date) Date of Service: unknown) (unknown) (no (unknown) (unknown) : 1940 (units (unknown) date) Acct:[id number] unknown) (unknown) (no (unknown) (unknown) GenericComposite[ (units (unknown) date) JACEY indexed to unknown) BSA (cm^2/m^2): 0.64 ] (unknown) (no (unknown) (unknown) GenericComposite[ (units (unknown) date) LV alston. unknown) diameter/BSA (cm/m^2): 2.6 ] (unknown) (no (unknown) (unknown) GenericComposite[ (units (unknown) date) LV sys. unknown) diameter/BSA (cm/m^2): 2.4 ] (unknown) (no (unknown) (unknown) Loc: [facility] (units (unkn own) date) unknown) (unknown) (no (unknown) (unknown) Ordering Provider: (units (unknown) date) Grace Rodriguez MD unknown) (unknown) (no (unknown) (unknown) Patient: (units (unkno wn) date) KinjalGlenn Sharita unknown) MR#: [id number] (unknown) (no (unknown) (unknown) Procedure: EC echo (units (unknown) date) doppler complete unknown) Social History No information. Vital Signs No information.
[2022-05-07] MEDS ORDERED: METOPROLOL 5 MG/5 ML VIAL IVP STA (10:49)
--- NOTE | 2022-05-07 11:24 | XRAY Report ---
PROCEDURE: Chest 1 View X-Ray INDICATIONS: chest pain TECHNIQUE: One view of the chest was acquired. COMPARISON: 09/02/2021 FINDINGS: Surgical changes and devices: An AICD can be seen. The leads are seen in the expected positions. St ernotomy wires and a valve prosthesis can be seen. Lungs and pleura: No pleural effusions or pneumothorax. Mild interstitial prominence can be seen. Bl unting of the left costophrenic angle is seen. Mediastinum: Mediastinal contours appear normal. Heart size is moderately enlarged. Calcification is seen of the aortic arch. Bones and chest wall: No suspicious bony lesions. Age-appropriate degenerative changes are seen. Overlying soft tissues appear unremarkable. IMPRESSION: There is cardiomegaly, with interstitial prominence and a small likely left-sided pleural effusion. P lease correlate with patient examination, history, and laboratory values for underlying congestive he art failure. Postoperative and degenerative changes are seen. Reviewed by: Kannan Nathan MD on 05/07/2022 10:23 AM JUAN ANTONIO Approved by: Kannan Nathan MD on 05/07/2022 10:23 AM JUAN ANTONIO Station ID: [id number]
[2022-05-07] MEDS ORDERED: SODIUM CHLORIDE FLUSH 0.9% 10 ML SYRINGE IVP PRN (12:29)
[2022-05-07] MEDS ORDERED: ATROPINE 1% OPHTH DROPS 2 ML SL PRN (12:34)
[2022-05-07] MEDS ORDERED: CARBOXYMETHYLCELLULOSE OPHTH DROPS EACHEYE PRN (12:34)
[2022-05-07] MEDS ORDERED: ACETAMINOPHEN 160 MG/5 ML SUSP UDC PO PRN (12:34)
[2022-05-07] MEDS ORDERED: ONDANSETRON ODT 4 MG TABLET TL PRN (12:34)
[2022-05-07 12:42] LABS: B. PARAPERTUSSIS- RESP PCR PAN NOT DETECTED; B. PERTUSSIS- RESP PCR PANEL NOT DETECTED; C. PNEUMONIAE- RESP PCR PANEL NOT DETECTED; CORONAVIRUS 229E-RESP PCR NOT DETECTED; CORONAVIRUS HKU1-RESP PCR NOT DETECTED; CORONAVIRUS NL63-RESP PCR NOT DETECTED; CORONAVIRUS OC43-RESP PCR NOT DETECTED; HUMAN METAPNEUMOVIRUS NOT DETECTED; INFLUENZA A- RESP PCR PANEL NOT DETECTED; INFLUENZA B - RESP PCR PANEL NOT DETECTED; M. PNEUMONIAE- RESP PCR PANEL NOT DETECTED; PARAINFLUENZA VIRUS 1 NOT DETECTED; PARAINFLUENZA VIRUS 2 NOT DETECTED; PARAINFLUENZA VIRUS 3 NOT DETECTED; PARAINFLUENZA VIRUS 4 NOT DETECTED; RHINOVIRUS/ENTEROVIRUS NOT DETECTED; RSV- RESP PCR PANEL NOT DETECTED; SARS-CoV-2 -RESP PCR PANEL NOT DETECTED
--- NOTE | 2022-05-07 12:48 | HISTORY & PHYSICAL EXAMINATION ---
Chief Complaint - Chief Complaint Chief Complaint: GLF at home History of Present Illness - Admitted From Admitted From:: home - History Obtained From Records Reviewed: [facility] History obtained from: Son, BETTIE and Dr. 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 He has had coronary artery disease with a bypass surgery in the past. He has chronic atrial fibrillation on anticoagulation. And he is known congestive heart failure. He came in with acute respiratory failure and hypoxia due to atrial fibrillation with RVR in August 2021. He was hospitalized, diuresed, stabilized. He did require BiPAP during that admission. At that point in time advanced care planning was discussed about his AICD. Family was recognizing that this patient was deteriorating to the point that therapeutic options may be limited. We asked them if they wanted us to remove the AICD or deactivated. At that point in time they were not sure. He e nded up being discharged to snf facility for rehab. From there he is gone home to live with his son. He has been seen by his helminthologist. The family tells us that there is nothing further more to do per the helminthologist. He states that further hospitalizations or further procedures for heart disease is probably not useful. May be in 7 months he will do an echocardiogram. 4 days ago there was an unexpected in the family. One of his sons . This is sentiment to a sharp grief reaction. He has stopped eating or drinking. And spite of constant prompting from his [id number]-vgf with whom he lives with, he is refusing medications as well. He is stating that he just does not want anything done and that it is time to go. He has been getting progressively weaker. Today he slipped and fell and was unable to get up. His daughter in law was unable to get him up. EMS was called. He is admission pulse was 134. Blood pressure 117/89. Respirations 24 and 98% on room air. He is 36.7. He is a frail, weak and elderly gentleman. He is tachycardic, tachypneic, and lab work showed him to have a white cell count of 11.7. Hemoglobin 12.8. INR is 3. Potassium 5.3. BUN 83, creatinine 4.1. Glucose 398. Magnesium 2.2. Total bili 1.3. AST 367 and ALT 643. His troponin is 117. A second set of troponins was 106. BNP is 2929. Chest x-ray has cardiomegaly with interstitial prominence and a small left-sided pleural effusion. No acute lung changes. CT spine was done because of the "trauma" and he has no active fracture. He is got a small to moderate left- sided pleural effusion. Head CT shows no intracranial hemorrhage. He has a focal low-density involving the posterior aspect of the right frontal lobe. Statistically most likely related to a remote infarction, relative sparing of the overlying pabon matter and this would lead to a differential diagnosis would include underlying tumor with edema. Please see advance care planning conversation held with itcpwxzq-rb-iqa and son and patient. The patient is to be placed in observation status with comfort measures only. History - Past Medical History Cardiovascular: reports: Congestive heart failure, Hypertension, High chol esterol, Coronary artery disease, Atrial fibrillation, Murmur, Valve disorder, Other Respiratory: reports: None Neuro: reports: Parkinson's Endocrine/Autoimmune: reports: Type 2 diabetes GI: reports: GERD : reports: Incontinence HEENT: reports: Chronic vision loss Psych: reports: None Musculoskeletal: reports: None Derm: reports: None MRSA Hx?: No - Past Surgical History Cardiovascular: reports: CABG, Valve replacement, AICD HEENT: reports: Cataracts - Family & Social History Family History Comment/Other: Family member denied any history of any significant medical problems. The patient himself says that he just cannot remember how old his parents were. Cannot remember brothers and sisters. But he does remember he had 4 sons. 1 a few days ago. He says that with tears in his eyes but he cannot remember what he of Living arrangement: At home Living Situation: With family Social History Notes: He does not use tobacco products, alcohol or recreational substances. He lives at home with his son and his son's family. He has a clinical nursing intern who comes 3 days a week to help with showers. He gets around using a walker. He is able to feed himself. - Substance History Use: Uses substance without health or social issues: NONE Abuse: Recurrent use of substance despite neg consequences: NONE Dependence: Experiences withdrawal or developed tolerances: NONE - POLST Patient has POLST: No POLST Status: DNR Meds/Allgy - Home Medications Home Medications: Ambulatory Orders Medication Instructions Recorded Confirmed Omeprazole 20 mg PO DAILY 03/20/20 02/02/22 Spironolactone 25 mg PO DAILY 03/20/20 02/02/22 Apixaban [Eliquis] 5 mg PO BID 09/02/21 02/02/22 Losartan Potassium 12.5 mg PO DAILY 09/02/21 02/02/22 Metoprolol Succinate 100 mg PO BID 09/02/21 02/02/22 Rosuvastatin Calcium [Crestor] 5 mg PO DAILY 09/02/21 02/02/22 Furosemide [Lasix] 40 mg PO DAILY #30 tablet 09/09/21 02/02/22 Insulin Glargine [Lantus Solostar] 22 unit SUBQ QPM 02/02/22 02/02/22 Insulin Glargine [Lantus Solostar] 30 units SQ DAILY 02/02/22 02/02/22 Tamsulosin [Flomax] 1 tab PO DAILY 02/02/22 02/02/22 - Allergies Allergies/Adverse Reactions: Allergies Allergy/AdvReac Type Severity Reaction Status Date / Time atorvastatin [From Lipitor] Allergy Unknown Verified 02/02/22 19:25 Review of Systems - Constitutional Constitutional: reports: Fatigue, Malaise, Weakness, Poor appetite, Weight gain. 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 denies: Pain, Irritation, Amaurosis, Blurred vision - Ears, Nose & Throat Ears, Nose & Throat: reports: Hearing loss, Sore throat, Hoarseness, Other (No teeth). denies: Ear pain, Hearing aids, Tinnitus, Nasal pain, Nasal discharge - Cardiovascular Cariovascular: reports: Irregular heart rate, Palpitations, Edema, Exertional dyspnea, Decr. exercise tolerance. denies: Chest pain - Respiratory Respiratory: reports: Orthopnea, SOB at rest, SOB with exertion. denies: Cough, Sputum production, Wheezing, Snoring - Gastrointestinal Gastrointestinal: denies: Abdominal pain, Abdominal distention, Constipation, Diarrhea, Change in bowel habits - Genitourinary Genitourinary: reports: Frequency, Incontinence, Nocturia. denies: Dysuria, Urgency, Flank pain - Musculoskeletal Musculoskeletal: reports: Back pain (aches from being in bed). denies: Muscle pain, Muscle aches, Stiffness - Integumentary Integumentary: denies: Rash, Pruritis, Lesions - Neurological Neurological: reports: General weakness, Memory problems, Pre-existing deficit - Psychiatric Psychiatric: reports: Depression. denies: Anxiety, Suicidal, Delusions, Hallucinations - Endocrine Endocrine: reports: Intolerance to cold - Hematologic/Lymphatic Hematologic/Lymphatic: reports: Bruising Prior Level of Functionality: He was able to walk at home with a walker. Very slow. Needing help with dress ing. While he it was able to feed himself he was not able to cook. This last week he is in bed, refusing to eat or drink and cannot get up anymore. Exam - Vital Signs Reviewed Vital Signs: Yes Vital Signs: Vital Signs x48h Temp Pulse Resp BP Pulse Ox 05/07/22 11:43 128 H 30 H 101/85 H 100 05/07/22 11:00 122 H 24 134/113 H 100 05/07/22 10:21 36.7 C 132 H 20 121/93 H 100 05/07/22 09:39 134 H 24 117/89 H 98 - Physical Exam General Appearance: positive: Alert (but fatigued, shallow fast breathing, mild distress), Other (Short statured, edentulous, elderly gentleman with a slightly high-pitched voice, barely audible, easily fatigued) Eyes Bilateral: positive: Other (Left pupil/cornea scarred over. Slight lateral deviation of eyeball. He is blind. Cannot remember why. Right pupil reactive. Sclera nonicteric.) ENT: positive: Dry mucous membranes (Lips have slight cracks, tongue very dry, edentulous.) Neck: positive: No JVD. negative: Stiff neck Respiratory: positive: Chest non-tender (Midline sternal scar, left subclavicular scar with the AICD battery box in place.), Rales, Other (Shallow, slightly tachypneic breathing, no rib retraction, no sternocleidomastoid stiffness) Cardiovascular: positive: Irregularly irregular, Tachycardia, Systolic murmur Abdomen: positive: Non-tender, No organomegaly, Nml bowel sounds, No distention. negative: Guarding, Rebound Skin: positive: Dry, Pallor, Other (Hands and feet are cool to touch. He has evidence of previous distal medial calf ulcers with healing.) Extremities: positive: Full ROM, Pedal edema (2+) Neurologic/Psychiatric: positive: Disoriented to place (He thinks he is at home in his son's house), Disoriented to time, Facial droop (Left-sided. I thought at first that his head was turned over to the left and the gravity was pulling his face down. But when I have him look straight forward, there is a left facial droop. Questionable scar along the zygomatic arch but he says he has never had surgery there. Tongue is midline.). negative: CN's nml (2-12) (Blind left eye. Voice low and barely audible), Motor nml (Severe generalized weakness. No focal deficits) Conclusion/Plan - Problem List (1) Cardiorenal syndrome with renal failure Conclusion/Plan: This unfortunate gentleman is stopped taking his medications, eating, or drinking. This in turn has caused acute kidney injury, dehydration, and most likely subtle worsening of congestive heart failure. He is adamant that he no longer wants any interventions done, he wants to give out. In discussions with his son and [id number] (son Glenn is POA) they are supporting him in his decision. They are understandably saddened, but with the helminthologist stating that there is no more interventions that can be done, they are accepting of his terminal condition. Its been a great loss for the family to lose the patient's son from 4 days ago and now they are going to be losing their patriarch. Plan: Observation status Comfort measures only The son is particularly concerned that we do not give dad IV fluids or things that dad is already set he did not want. I have reassured him that we will not even be doing vital signs or blood work. What ever his father wants we will give him with regards to food. We will always offer him ice cream if that is w hat he wants. And then focus on medications to treat symptoms. (2) End stage heart failure Conclusion/Plan: As above. The patient has an AICD in place. Ejection fraction has been as low as 25%. Plan: Find a magnet from the crash cart, deactivate the AICD. The son stated that after his last hospitalization they have been thinking about this. But they n ever got around to actually doing it for him. Social work consult in the morning to start placement at snf facility. The family states they are acceptable to be the [facility] , or [facility]. They live in [place]. Right now the POA/son is in [place] at work. Jbyssdtj-ts-efa lives in [place]. (3) Dementia Conclusion/Plan: An ongoing issue. Part of their definition of lack of quality of life. He does not have any behavioral issues. (4) Comfort measures only status Conclusion/Plan: No blood draws, no vitals, [address] for as needed meds. Roxanol drops, Tylenol, Ativan, atropine drops. All as needed - Lab Results Lab results reviewed: Yes Fish Bones: 05/07/22 09:45 05/07/22 09:45 Core Measures - Anticipated LOS I expect patient to be DC'd or transferred within 96 hours.: Yes - DVT/VTE - Prophylaxis VTE/DVT Device ordered at admit?: No Not Ordered - Medical Reason: Contraindicated VTE/DVT Prophylaxis med ordered at admit?: No Not Ordered - Medical Reason: Not indicated
--- NOTE | 2022-05-07 12:58 | ADVANCE CARE PLANNING NOTE ---
Advance Care Planning - Planning Encounter Date: 05/07/22 Time: 12:05 Purpose: Establish care goals Parties in Attendance: [id number] on separate phone conversation, son/POA Glenn, hospitalist Decisional Capacity of the Patient: Although he is disoriented to place and time, son still honors his father's wishes if his dad wants something. But son is default POA and making all decisions at this time - Diagnosis for Encounter (2) End stage heart failure Summary: This gentleman has end-stage heart failure. Recent conversation with circuit court clerk states that there is no further interventions that can be really offered for him. Patient was tenuous at best. Already deteriorating with regards to mobility, and his dementia. Son 4 days ago and since then he has refused to eat or drink, or take his medications. He presents to the emergency room and cardio renal failure. - Encounter Subjective/Patient's Story: Patient was born and raised in [place]. his second and was living there. As he aged, he began having problems with dementia, and his heart disease. He a second time. Eventually his home situation became untenable with regards to safety. The son feels that "the state of [place] forced their hand". They had to go pick him up 3 years ago because they were not safe. And they came to live with his son Glenn, and msxmfvqg-[id number]-umo. Within a month the patient's second . She was in hospice. In the last 3 years Mr. Almanza has been gently but steadily deteriorating. Some of it dementia, some of it heart disease. Gradually dwindling quality of life. It would already been decided the patient is a DO NOT RESUSCITATE. In reading the notes from August 2021 the only remaining issue was the AICD and deactivating it. The son states that it was supposed to been deactivated while he was at the senior care in [place] (the rehab facility the patient went to after August 2021) but it has not been done. 4 days ago the patient's other son unexpectedly. The grief reaction has been fierce and strong and the patient is refused to eat, drink, or take his medications. He finally slid to the ground today because of weakness and jfxadysw-di-bpc could not pick him up. Son Glenn is in [place] on a job. As such I spoke to the flrvawje-zf-udn first, and then she gave me Glenn's phone number. Vkwsbevs-ta-mup is Rhonda at [phone]. Son is Glenn Van and his number is [phone]. Glenn is firm and stating that dad does not want aggressive interventions to be kept alive. I asked if IV fluids was to be offered and he said no. Dad has really wanting to pass away and does not want things done to him. Dad is mainly fixated on wanting "ice cream". Glenn also states that his is overwhelmed. She has been the primary caregiver for his dad because his job takes him away from home so long. Physically overwhelmed. She cannot lift him or turning over in bed. They feel that they would like him to be transition to comfort measures only but cannot take him home. They are amenable to us making arrangements to the appropriate facility. Objective/Medical Story: This unfortunate gentleman has known end-stage congestive heart failure due to ischemic cardiomyopathy. He has had coronary artery disease with a bypass surgery in the past. He has chronic atrial fibrillation on anticoagulation. And he is known congestive heart failure. He came in with acute respiratory failure and hypoxia due to atrial fibrillation with RVR in August 2021. He was hospitalized, diuresed, stabilized. He did require BiPAP during that admission. At that point in time advanced care planning was discussed about his AICD. Family was recognizing that this patient was deteriorating to the point that therapeutic options may be limited. We asked them if they wanted us to remove the AICD or deactivated. At that point in time they were not sure. He ended up being discharged to care home facility for rehab. From there he is gone home to live with his son. He has been seen by his circuit court clerk. The family tells us that there is nothing further more to do per the circuit court clerk. He states that further hospitalizations or further procedures for heart disease is probably not useful. May be in 7 months he will do an echocardiogram. 4 days ago there was an unexpected in the family. One of his sons . This is sentiment to a sharp grief reaction. He has stopped eating or drinking. And spite of constant prompting from his bpdlulvp-ba-orh with whom he lives with, he is refusing medications as well. He is stating that he just does not want anything done and that it is time to go. He has been getting progressively weaker. Today he slipped and fell and was unable to get up. His daughter in law was unable to get him up. EMS was called. He is admission pulse was 134. Blood pressure 117/89. Respirations 24 and 98% on room air. He is 36.7. He is a frail, weak and elderly gentleman. He is tachycardic, tachypneic, and lab work showed him to have a white cell count of 11.7. Hem oglobin 12.8. INR is 3. Potassium 5.3. BUN 83, creatinine 4.1. Glucose 398. Magnesium 2.2. Total bili 1.3. AST 367 and ALT 643. His troponin is 117. A second set of troponins was 106. BNP is 2929. Chest x-ray has cardiomegaly with interstitial prominence and a small left-sided pleural effusion. No acute lung changes. CT spine was done because of the "trauma" and he has no active fracture. He is got a small to moderate left- sided pleural effusion. Head CT shows no intracranial hemorrhage. He has a focal low-density involving the posterior aspect of the right frontal lobe. Statistically most likely related to a remote infarction, relative sparing of the overlying pabon matter and this would lead to a differential diagnosis would include underlying tumor with edema. The patient is to be placed in observation status with comfort measures only. History - Past Medical History Cardiovascular: reports: Congestive heart failure, Hypertension, High cholesterol, Coronary artery disease, Atrial fibrillation, Murmur, Valve disorder, Other Respiratory: reports: None Neuro: reports: Parkinson's Endocrine/Autoimmune: reports: Type 2 diabetes GI: reports: GERD : reports: Incontinence HEENT: reports: Chronic vision loss Psych: reports: None Musculoskeletal: reports: None Derm: reports: None MRSA Hx?: No - Past Surgical History Cardiovascular: reports: CABG, Valve replacement, AICD HEENT: reports: Cataracts Goals of Care: 1. Comfort measures only to let this patient pass away as peacefully as possible Plan: 1. DO NOT RESUSCITATE status we will continue 2. Find magnet to deactivate AICD. Emergency room provider, Dr. Bustillos, states they cannot do that in the ED, and he recommends that we do the magnet out of a code cart here on the floor 3. Placed in observation status for institution of comfort measures and finding him a place that is safe for him to be discharged to since he cannot go home 4. Social work to be consulted in the morning for choice seeing either to [facility] or [facility] Code Status: Do Not Attempt Resuscitation Time spent on advance care plannin minutes
[2022-05-07] MEDS: SODIUM CHLORIDE FLUSH 0.9% 10 ML SYRINGE IVP SCH (16:00)
[2022-05-08] MEDS: SODIUM CHLORIDE FLUSH 0.9% 10 ML SYRINGE IVP SCH ×3 (01:00→16:48)
[2022-05-09] MEDS: SODIUM CHLORIDE FLUSH 0.9% 10 ML SYRINGE IVP SCH ×3 (06:37→15:57)
--- NOTE | 2022-05-09 13:39 | PROVIDER PROGRESS NOTE ---
Assessment/Plan - Problem List (1) Cardiorenal syndrome with renal failure Assessment/Plan: Patient stopped taking his medications, eating or drinking. He has stated that he no longer wants any intervention. He wants to give up. Per documentation by my colleague Dr. Berger, she had a discussion with the patient's son and [id number]. They are supporting him in his decision. Patient was placed on comfort care measures. Plan is to discharge him home where he will be seen by the hospice team. Working on coordinating discharge with social work. Will reach out to the double surface operator of the patient's AICD to request deactivation of the defibrillator settings. (2) End stage heart failure Assessment/Plan: Patient has an EF of 25%. AICD in place. (3) Dementia Assessment/Plan: No behavioral issues. Patient currently on comfort measures. (4) Comfort measures only status Assessment/Plan: Comfort care measures ordered. Plan is to discharge patient home under family's care. He will be seen by hospice at home. - Current Meds Current Meds: Current Medications Generic Name Dose Route Start Last Admin Trade Name Freq PRN Reason Stop Dose Admin Sodium Chloride 10 ml 05/07/22 12:29 05/07/22 13:44 Sodium Chloride Flush 0.9% 10 Ml Syringe IVP 10 ml PRN PRN Administration NEEDED PER PROVIDER ORDERS Sodium Chloride 10 ml 05/07/22 17:00 05/09/22 12:29 Sodium Chloride Flush 0.9% 10 Ml Syringe IVP Not Given 0100,0900,1700 [facility] - Lab Result Fish Bone Diagrams: 05/07/22 09:45 05/07/22 09:45 Subjective - Subjective Patient Reports: Other (He was awake and alert at time of visit. He appears sad with a flat affect. He denies any complaint.) Objective Vital Signs: Vital Signs - 24 hr 05/09/22 11:50 Temperature 36.5 C Heart Rate [ 133 H Radial] Respiratory 20 Rate Blood Pressure 131/85 H [Left Radial artery] O2 Saturation 93 Oxygen O2 Source Room air I&O (Last 24 Hrs): Intake and Output Totals x24h 05/07/22 05/08/22 05/09/22 23:59 23:59 23:59 Intake Total 1740 820 Output Total 0 Balance 1740 820 General: Alert, No acute distress HEENT: PERRLA, EOMI Neck: Supple, No JVD Neuro: Alert, Non Focal Cardiovascular: Other (tachycardia) Respiratory: Chest non-tender, No respiratory distress, Breath sounds nml Abdomen: Normal bowel sounds, Soft Extremities: No clubbing, No cyanosis, No edema, No tenderness/swelling Skin: No rashes, No breakdown, No significant lesion - Results Results: Laboratory Results WBC 11.7 x10^3/uL (4.8-10.8) H 05/07/22 09:45 RBC 4.70 10^6/uL (4.70-6.10) 05/07/22 09:45 Hgb 12.8 g/dL (14.0-18.0) L 05/07/22 09:45 Hct 40.7 % (42.0-52.0) L 05/07/22 09:45 MCV 86.6 fL (80.0-94.0) 05/07/22 09:45 MCH 27.2 pg (27.0-31.0) 05/07/22 09:45 MCHC 31.4 g/dL (32.0-36.0) L 05/07/22 09:45 RDW 15.2 % (12.0-15.0) H 05/07/22 09:45 Plt Count 194 10^3/uL (130-450) 05/07/22 09:45 MPV 13.0 fL (7.4-11.4) H 05/07/22 09:45 Neut # (Auto) 9.6 10^3/uL (1.5-6.6) H 05/07/22 09:45 Lymph # (Auto) 1.2 10^3/uL (1.5-3.5) L 05/07/22 09:45 [place] # (Auto) 0.9 10^3/uL (0.0-1.0) 05/07/22 09:45 Eos # (Auto) 0.0 10^3/uL (0.0-0.7) 05/07/22 09:45 Baso # (Auto) 0.0 10^3/uL (0.0-0.1) 05/07/22 09:45 Absolute Nucleated RBC 0.04 x10^3/uL 05/07/22 09:45 Nucleated RBC % 0.3 /100WBC 05/07/22 09:45 PT 33.3 secs (9.9-12.6) H 05/07/22 09:45 INR 3.0 (0.8-1.2) H 05/07/22 09:45 Sodium 139 mmol/L (135-145) 05/07/22 09:45 Potassium 5.3 mmol/L (3.5-5.0) H 05/07/22 09:45 Chloride 105 mmol/L (101-111) 05/07/22 09:45 Carbon Dioxide 16 mmol/L (21-32) L 05/07/22 09:45 Anion Gap 18.0 (6-13) H 05/07/22 09:45 BUN 83 mg/dL (6-20) H* 05/07/22 09:45 Creatinine 4.1 mg/dL (0.6-1.2) H 05/07/22 09:45 Estimated GFR (MDRD) 14 (>89) L 05/07/22 09:45 Glucose 398 mg/dL (70-100) H 05/07/22 09:45 Calcium 8.3 mg/dL (8.5-10.3) L 05/07/22 09:45 Magnesium 2.2 mg/dL (1.7-2.8) 05/07/22 09:45 Total Bilirubin 1.3 mg/dL (0.2-1.0) H 05/07/22 09:45 AST 367 IU/L (10-42) H 05/07/22 09:45 ALT 643 IU/L (10-60) H 05/07/22 09:45 Alkaline Phosphatase 107 IU/L (42-121) 05/07/22 09:45 Troponin I High Sens 106.2 ng/L (2.3-19.7) H* 05/07/22 11:18 B-Natriuretic Peptide 2929 pg/mL (5-100) H 05/07/22 09:45 Total Protein 6.3 g/dL (6.7-8.2) L 05/07/22 09:45 Albumin 2.7 g/dL (3.2-5.5) L 05/07/22 09:45 Globulin 3.6 g/dL (2.1-4.2) 05/07/22 09:45 Albumin/Globulin Ratio 0.8 (1.0-2.2) L 05/07/22 09:45 Lipase 26 U/L (22-51) 05/07/22 09:45 Nasal Adenovirus (PCR) NOT DETECTED 05/07/22 11:37 Nasal B. parapertussis DNA (PCR) NOT DETECTED 05/07/22 11:37 Nasal Coronavir 229E PCR NOT DETECTED 05/07/22 11:37 Nasal Coronavir HKU1 PCR NOT DETECTED 05/07/22 11:37 Nasal Coronavir NL63 PCR NOT DETECTED 05/07/22 11:37 Nasal Coronavir OC43 PCR NOT DETECTED 05/07/22 11:37 Nasal Enterovir/Rhinovir PCR NOT DETECTED 05/07/22 11:37 Nasal Influenza B PCR NOT DETECTED 05/07/22 11:37 Nasal Influenza A PCR NOT DETECTED 05/07/22 11:37 Nasal Parainfluen 1 PCR NOT DETECTED 05/07/22 11:37 Nasal Parainfluen 2 PCR NOT DETECTED 05/07/22 11:37 Nasal Parainfluen 3 PCR NOT DETECTED 05/07/22 11:37 Nasal Parainfluen 4 PCR NOT DETECTED 05/07/22 11:37 Nasal RSV (PCR) NOT DETECTED 05/07/22 11:37 Nasal B.pertussis DNA PCR NOT DETECTED 05/07/22 11:37 Nasal C.pneumoniae (PCR) NOT DETECTED 05/07/22 11:37 [place] Human Metapneumo PCR NOT DETECTED 05/07/22 11:37 Nasal M.pneumoniae (PCR) NOT DETECTED 05/07/22 11:37 Nasal SARS-CoV-2 (PCR) NOT DETECTED 05/07/22 11:37 Serum Ketones NEGATIVE (NEGATIVE) 05/07/22 09:45 ABX Reporting Has patient been on IV antibiotics over the past 48 hours?: No
[2022-05-09] MEDS ORDERED: METOPROLOL TARTRATE 50 MG TABLET PO STA (13:57)
[2022-05-09] MEDS: METOPROLOL SUCCINATE 50 MG TABLET PO SCH (20:36)
[2022-05-10] MEDS: SODIUM CHLORIDE FLUSH 0.9% 10 ML SYRINGE IVP SCH ×3 (00:03→12:47)
--- NOTE | 2022-05-10 07:48 | PROVIDER PROGRESS NOTE ---
Assessment/Plan - Problem List (1) Cardiorenal syndrome with renal failure Assessment/Plan: Patient stopped taking his medications, eating or drinking. He has stated that he no longer wants any intervention. He wants to give up. Per documentation by my colleague Dr. Berger, she had a discussion with the patient's son and [id number]. They are supporting him in his decision. Patient was placed on comfort care measures. Plan is to discharge him home where he will be seen by the hospice team on 04/15 06/05. He has a [employer] [facility] device. Defribillator setting deactivation will be done at 10 am on 05/11/[address] [facility] route sales representative (2) End stage heart failure Assessment/Plan: Patient has an EF of 25%. AICD in place. (3) Dementia Assessment/Plan: No behavioral issues. Patient currently on comfort measures. (4) Comfort measures only status Assessment/Plan: Comfort care measures ordered. Plan is to discharge patient home under family's care. He will be seen by hospice at home. - Current Meds Current Meds: Current Medications Generic Name Dose Route Start Last Admin Trade Name Freq PRN Reason Stop Dose Admin Metoprolol Succinate 50 mg 05/09/22 21:00 05/09/22 20:36 Metoprolol Succinate 50 Mg Tablet PO 50 mg BID [facility] Administration Sodium Chloride 10 ml 05/07/22 12:29 05/07/22 13:44 Sodium Chloride Flush 0.9% 10 Ml Syringe IVP 10 ml PRN PRN Administration NEEDED PER PROVIDER ORDERS Sodium Chloride 10 ml 05/07/22 17:00 05/10/22 00:03 Sodium Chloride Flush 0.9% 10 Ml Syringe IVP Not Given 0100,0900,1700 [facility] - Lab Result Fish Bone Diagrams: 05/07/22 09:45 05/07/22 09:45 - Additional Planning My Orders: My Active Orders 05/09/22 21:00 Metoprolol Succinate [Toprol Xl] 50 mg PO BID 05/10/22 07:43 Rizo Continuation and Care [RC] QSHIFT Rizo Insertion [RC] QSHIFT Subjective - Subjective Patient Reports: Other (Resting comfortably in bed. Somnolent. Denies any complains) Objective Vital Signs: Vital Signs - 24 hr 07/05/09/22 05/09/22 11:50 14:15 20:35 Temperature 36.5 C Heart Rate [ 115 H Brachial] Heart Rate [ 133 H 115 H Radial] Respiratory 20 Rate Blood Pressure 133/87 H Blood Pressure 131/85 H [Left Radial artery] Blood Pressure 113/56 L [Right Brachial artery] O2 Saturation 93 Oxygen O2 Source Room air I&O (Last 24 Hrs): Intake and Output Totals x24h 05/08/22 05/09/22 05/10/22 23:59 23:59 23:59 Intake Total 820 238 150 Balance 820 238 150 Comments/Notes: General: Alert, No acute distress HEENT: PERRLA, EOMI Neck: Supple, No JVD Neuro: Alert, Non Focal Cardiovascular: Other (tachycardia) Respiratory: Chest non-tender, No respiratory distress, Breath sounds nml Abdomen: Normal bowel sounds, Soft Extremities: No clubbing, No cyanosis, No edema, No tenderness/swelling Skin: No rashes, No breakdown, No significant lesion - Results Results: Laboratory Results WBC 11.7 x10^3/uL (4.8-10.8) H 05/07/22 09:45 RBC 4.70 10^6/uL (4.70-6.10) 05/07/22 09:45 Hgb 12.8 g/dL (14.0-18.0) L 05/07/22 09:45 Hct 40.7 % (42.0-52.0) L 05/07/22 09:45 MCV 86.6 fL (80.0-94.0) 05/07/22 09:45 MCH 27.2 pg (27.0-31.0) 05/07/22 09:45 MCHC 31.4 g/dL (32.0-36.0) L 05/07/22 09:45 RDW 15.2 % (12.0-15.0) H 05/07/22 09:45 Plt Count 194 10^3/uL (130-450) 05/07/22 09:45 MPV 13.0 fL (7.4-11.4) H 05/07/22 09:45 Neut # (Auto) 9.6 10^3/uL (1.5-6.6) H 05/07/22 09:45 Lymph # (Auto) 1.2 10^3/uL (1.5-3.5) L 05/07/22 09:45 [place] # (Auto) 0.9 10^3/uL (0.0-1.0) 05/07/22 09:45 Eos # (Auto) 0.0 10^3/uL (0.0-0.7) 05/07/22 09:45 Baso # (Auto) 0.0 10^3/uL (0.0-0.1) 05/07/22 09:45 Absolute Nucleated RBC 0.04 x10^3/uL 05/07/22 09:45 Nucleated RBC % 0.3 /100WBC 05/07/22 09:45 PT 33.3 secs (9.9-12.6) H 05/07/22 09:45 INR 3.0 (0.8-1.2) H 05/07/22 09:45 Sodium 139 mmol/L (135-145) 05/07/22 09:45 Potassium 5.3 mmol/L (3.5-5.0) H 05/07/22 09:45 Chloride 105 mmol/L (101-111) 05/07/22 09:45 Carbon Dioxide 16 mmol/L (21-32) L 05/07/22 09:45 Anion Gap 18.0 (6-13) H 05/07/22 09:45 BUN 83 mg/dL (6-20) H* 05/07/22 09:45 Creatinine 4.1 mg/dL (0.6-1.2) H 05/07/22 09:45 Estimated GFR (MDRD) 14 (>89) L 05/07/22 09:45 Glucose 398 mg/dL (70-100) H 05/07/22 09:45 Calcium 8.3 mg/dL (8.5-10.3) L 05/07/22 09:45 Magnesium 2.2 mg/dL (1.7-2.8) 05/07/22 09:45 Total Bilirubin 1.3 mg/dL (0.2-1.0) H 05/07/22 09:45 AST 367 IU/L (10-42) H 05/07/22 09:45 ALT 643 IU/L (10-60) H 05/07/22 09:45 Alkaline Phosphatase 107 IU/L (42-121) 05/07/22 09:45 Troponin I High Sens 106.2 ng/L (2.3-19.7) H* 05/07/22 11:18 B-Natriuretic Peptide 2929 pg/mL (5-100) H 05/07/22 09:45 Total Protein 6.3 g/dL (6.7-8.2) L 05/07/22 09:45 Albumin 2.7 g/dL (3.2-5.5) L 05/07/22 09:45 Globulin 3.6 g/dL (2.1-4.2) 05/07/22 09:45 Albumin/Globulin Ratio 0.8 (1.0-2.2) L 05/07/22 09:45 Lipase 26 U/L (22-51) 05/07/22 09:45 Nasal Adenovirus (PCR) NOT DETECTED 05/07/22 11:37 Nasal B. parapertussis DNA (PCR) NOT DETECTED 05/07/22 11:37 Nasal Coronavir 229E PCR NOT DETECTED 05/07/22 11:37 Nasal Coronavir HKU1 PCR NOT DETECTED 05/07/22 11:37 Nasal Coronavir NL63 PCR NOT DETECTED 05/07/22 11:37 Nasal Coronavir OC43 PCR NOT DETECTED 05/07/22 11:37 Nasal Enterovir/Rhinovir PCR NOT DETECTED 05/07/22 11:37 Nasal Influenza B PCR NOT DETECTED 05/07/22 11:37 Nasal Influenza A PCR NOT DETECTED 05/07/22 11:37 Nasal Parainfluen 1 PCR NOT DETECTED 05/07/22 11:37 Nasal Parainfluen 2 PCR NOT DETECTED 05/07/22 11:37 Nasal Parainfluen 3 PCR NOT DETECTED 05/07/22 11:37 Nasal Parainfluen 4 PCR NOT DETECTED 05/07/22 11:37 Nasal RSV (PCR) NOT DETECTED 05/07/22 11:37 Nasal B.pertussis DNA PCR NOT DETECTED 05/07/22 11:37 Nasal C.pneumoniae (PCR) NOT DETECTED 05/07/22 11:37 [place] Human Metapneumo PCR NOT DETECTED 05/07/22 11:37 Nasal M.pneumoniae (PCR) NOT DETECTED 05/07/22 11:37 Nasal SARS-CoV-2 (PCR) NOT DETECTED 05/07/22 11:37 Serum Ketones NEGATIVE (NEGATIVE) 05/07/22 09:45 ABX Reporting Has patient been on IV antibiotics over the past 48 hours?: No
[2022-05-10] MEDS: METOPROLOL SUCCINATE 50 MG TABLET PO SCH ×2 (08:35→20:18)
[2022-05-10] MEDS: MORPHINE SOL 10 MG/0.5 ML ORAL SYRINGE PO PRN ×3 (16:23→23:40)
--- NOTE | 2022-05-11 07:21 | DISCHARGE SUMMARY ---
Discharge Summary Admit Date: 05/07/22 Discharge Date: 05/11/22 Discharging Provider: Foster Corey Primary Care Provider: Wilmer Oviedo Code Status: Do Not Attempt Resuscitation Condition at Discharge: Poor Discharge Disposition: 50 Hospice/Home DC/Xfer - DIAGNOSES Admission Diagnoses: Cardiorenal syndrome with renal failure End-stage heart failure Dementia Discharge Diagnoses with Status of Each Condition: Cardiorenal syndrome with renal failure End-stage heart failure Dementia Comfort care measures. - HPI History of Present Illness: This unfortunate gentleman has known end-stage congestive heart failure due to ischemic cardiomyopathy. He has had coronary artery disease with a bypass surgery in the past. He has chronic atrial fibrillation on anticoagulation. And he is known congestive heart failure. He came in with acute respiratory failure and hypoxia due to atrial fibrillation with RVR in August 2021. He was hospitalized, diuresed, stabilized. He did require BiPAP during that admission. At that point in time advanced care planning was discussed about his AICD. Family was recognizing that this patient was deteriorating to the point that therapeutic options may be limited. We asked them if they wanted us to remove the AICD or deactivated. At that point in time they were not sure. He ended up being discharged to longterm facility for rehab. From there he is gone home to live with his son. He has been seen by his septic pump truck driver. The family tells us that there is nothing further more to do per the septic pump truck driver. He states that further hospitali zations or further procedures for heart disease is probably not useful. May be in 7 months he will do an echocardiogram. 4 days ago there was an unexpected in the family. One of his sons expi red. This is sentiment to a sharp grief reaction. He has stopped eating or drinking. And spite of constant prompting from his [id number] with whom he lives with, he is refusing medications as well. He is stating that he just does not want anything done and that it is time to go. He has been getting progressively weaker. Today he slipped and fell and was unable to get up. His daughter in law was unable to get him up. EMS was called. He is admission pulse was 134. Blood pressure 117/89. Respirations 24 and 98% on room air. He is 36.7. He is a frail, weak and elderly gentleman. He is tachycardic, tachypneic, and lab work showed him to have a white cell count of 11.7. Hemoglo bin 12.8. INR is 3. Potassium 5.3. BUN 83, creatinine 4.1. Glucose 398. Magnesium 2.2. Total bili 1.3. AST 367 and ALT 643. His troponin is 117. A second set of troponins was 106. BNP is 2929. Chest x-ray has cardiomegaly with interstitial prominence and a small left-sided pleural effusion. No acute lung changes. CT spine was done because of the "trauma" and he has no active fracture. He is got a small to moderate left- sided pleural effusion. Head CT shows no intracranial hemorrhage. He has a focal low-density involving the posterior aspect of the right frontal lobe. Statistically most likely related to a remote infarction, relative sparing of the overlying pabon matter and this would lead to a differential diagnosis would include underlying tumor with edema. Please see advance care planning conversation held with [id number] and son and patient. The patient is to be placed in observation status with comfort measures only. - HOSPITAL COURSE Hospital Course: Patient is 81-year-old man with known end-stage CHF due to ischemic cardiomyopathy, history of coronary artery disease with a bypass surgery in the past, history of chronic atrial fibrillation on anticoagulation Who was admitted on 05/07/2022 after a ground-level fall. In the ED he was noted to be tachycardic with heart rate in the 130s and he had a troponin of 106 with a repeat troponin of 117. His BNP was 2929. Chest x-ray showed cardiomegaly with interstitial prominence and small left-sided pleural effusion. The patient had lost a son 4 days prior to presenting to the ED. He expressed that he did not want any more medical intervention. He had stopped eating, drinking and taking medications. In keeping with his wishes his family agreed to have the patient on comfort care measures only. Hospice care team was contacted and they will be admitting the patient later in the day on 05/11/2022. Patient has a [facility] [facility] medical AICD. Rep with [facility] was contacted and the defibrillator settings of the device were deactivated prior to discharge. Hospice will continue seeing the patient in the outpatient setting. - ALLERGIES Allergies/Adverse Reactions: Allergies Allergy/AdvReac Type Severity Reaction Status Date / Time atorvastatin [From Lipitor] Allergy Unknown Verified 02/02/22 19:25 - MEDICATIONS Home Medications: Ambulatory Orders Medication Instructions Recorded Confirmed Spironolactone 25 mg PO DAILY 03/20/20 05/08/22 Apixaban [Eliquis] 5 mg PO BID 09/02/21 05/08/22 Losartan Potassium 12.5 mg PO DAILY 09/02/21 05/08/22 Metoprolol Succinate 50 - 100 mg PO BID 09/02/21 05/08/22 Rosuvastatin Calcium [Crestor] 5 mg PO DAILY 09/02/21 05/08/22 Tamsulosin [Flomax] 0.4 mg PO DAILY 02/02/22 05/08/22 Carbidopa/Levodopa 25/100 [Sinemet 1 - 2 tab PO TID 05/08/22 05/08/22 25 mg/100 mg] Furosemide [Lasix] 20 mg PO DAILY 05/08/22 05/08/22 Insulin NPH Human Isophane 05/08/22 [Novolin N Flexpen] - PHYSICAL EXAM AT DISCHARGE General Appearance: positive: No acute distress, Other (Not responsive to tactile or verbal stimuli) Eyes Bilateral: positive: Normal inspection ENT: positive: Dry mucous membranes Neck: positive: No JVD, Trachea midline Respiratory: positive: No respiratory distress. negative: Wheezes, Rales, Rhonchi Cardiovascular: positive: Tachycardia Abdomen: positive: Non-tender, No distention. negative: Guarding, Rebound Skin: positive: Color nml, No rash, Warm, Dry Extremities: positive: Non-tender Neurologic/Psychiatric: positive: Other (Not awake, alert or oriented to place time or reason.) - LABS Result Diagrams: 05/07/22 09:45 05/07/22 09:45 - TIME SPENT Time Spent in Discharge (Minutes): 15
[2022-05-11] MEDS: METOPROLOL SUCCINATE 50 MG TABLET PO SCH (09:54)
[2022-05-11 14:25] VITALS: BP 83/46
== END 2022-05-11 15:25 | disposition hospice, home (50) ==
LOC: EDUNIT# → EDBD → ED 09:25 → MS2 12:29
PROVIDERS: ADMIT Specialist; ATTEND Specialist
DX: I13.0 Hypertensive heart and chronic kidney disease with heart failure and stage 1 through stage 4 chronic kidney disease, or unspecified chronic kidney disease (principal); N18.9 Chronic kidney disease, unspecified; I50.84 End stage heart failure; I25.5 Ischemic cardiomyopathy; R63.8 Other symptoms and signs concerning food and fluid intake; I25.10 Atherosclerotic heart disease of native coronary artery without angina pectoris; I48.20 Chronic atrial fibrillation, unspecified; T50.916A Underdosing of multiple unspecified drugs, medicaments and biological substances, initial encounter; F43.21 Adjustment disorder with depressed mood; E78.00 Pure hypercholesterolemia, unspecified; E11.22 Type 2 diabetes mellitus with diabetic chronic kidney disease; K21.9 Gastro-esophageal reflux disease without esophagitis; G20 Parkinson's disease; F02.80 Dementia in other diseases classified elsewhere, unspecified severity, without behavioral disturbance, psychotic disturbance, mood disturbance, and anxiety; H91.90 Unspecified hearing loss, unspecified ear; H54.40 Blindness, one eye, unspecified eye; H54.7 Unspecified visual loss; R32 Unspecified urinary incontinence; Z20.822 Contact with and (suspected) exposure to COVID-19; Z51.5 Encounter for palliative care; Z63.4 Disappearance and death of family member; Z66 Do not resuscitate; Z91.128 Patient's intentional underdosing of medication regimen for other reason; Z95.1 Presence of aortocoronary bypass graft; Z95.810 Presence of automatic (implantable) cardiac defibrillator
CPT/HCPCS: 36415; 70450; 71045; 72125; 80053; 82009; 83690; 83735; 83880; 84484; 85025; 85610; 87633; 93005; 96361; 96374; 99284; 99285; A9270; G0378

== ENCOUNTER 2022-05-11 16:05 | Outpatient (CLI) | payer MEDICARE, OTHER | END 2022-05-11 16:06 | disposition hospice, home (50) | LOC: EMS 16:05 | PROVIDERS: ATTEND Internal Medicine | DX: Z74.01 Bed confinement status (principal) | CPT/HCPCS: A0425; A0428 ==